=== PATIENT | female | born 1950 | race Caucasian/White ===

== ENCOUNTER → 2017-06-22 12:01 | Outpatient (CLI) | payer MEDICARE, SELFPAY ==
--- NOTE | 2017-06-22 12:03 | RAD_ITS ---
STUDY: X-RAY CHEST REASON FOR EXAM: Female, 67 years old. Cough and congestion TECHNIQUE: Single AP portable view of the chest. COMPARISON: None. FINDINGS: Moderate lung volumes. Elevated right hemidiaphragm, stable. Probable mild chronic interstitial prominence. No infiltrates or effusions. Normal size heart. Normal mediastinum and brennan. Normal visualized pulmonary arteries. Normal visualized aortic arch and descending thoracic aorta. Normal visualized thoracic spine. Normal visualized ribs, clavicles, and shoulders. There is no demonstrated abnormality of the visualized soft tissue structures of the upper abdomen. RAD/Chest PA and Lateral IMPRESSION: Moderate lung volumes. Elevated right hemidiaphragm, stable. Probable mild chronic interstitial prominence. No infiltrates or effusions. Electronically Signed: Pasquale Bauer MD at 12:37 EST , Service support ,
== END ==
PROVIDERS: Family Provider Family Medicine; PCP Family Medicine; Visit Provider Physician Assistant
DX: R05 Cough (principal)
CPT/HCPCS: 71046

== ENCOUNTER → 2017-10-22 10:27 | Outpatient (CLI) | payer MEDICARE, SELFPAY ==
[2017-10-22 12:19] LABS: Color, Urine Yellow (Yellow); Glucose, Dipstick Normal (Normal); Ketone-Dipstick Negative (Negative); Leukocyte Esterase-Dipstick Negative /ul (Negative); Nitrite-Dipstick Negative (Negative); Occult Blood-Urine 10 /ul (Negative); Protein-Dipstick Negative (Negative); Specific Gravity, Urine 1.025 (1.002-1.030); Urine Bilirubin Dipstick Negative (Negative); Urine Clarity Clear (Clear); Urine Urobilinogen Normal (Normal)
[2017-10-22 12:43] LABS: Absolute Lymphocyte Count 1.44 X10^3/ul (0.83-4.51); Absolute Neutrophil Count 4.1 X10^3/uL (2.0-7.7); Basophil# 0.02 X10^3/uL; Basophil% 0.3 % (0-1); Eosinophil# 0.45 X10^3/uL; Eosinophils% 6.9 % (0-5); Hematocrit 40.7 % (37-47); Hemoglobin 13.2 g/dl (12.0-15.0); Lymphocyte # 1.44 X10^3/ul (4.0); Lymphocyte % 22.1 % (19-41); Mean Corp Hgb Conc 32.4 g/gl (32-36); Mean Corpuscular Hgb 28.3 pg (27.0-32.0); Mean Corpuscular Volume 87.2 fL (81-99); Mean Platelet Vol. 10.4 fl (6.2-12.0); Monocyte# 0.42 X10^3/uL; Monocyte% 6.5 % (0-10); Neutrophil # 4.14 X10^3/uL (2.7-7.7); Neutrophil % 63.6 % (47-70); Platelet Count 265 K/mm3 (150-450); RBC Distribution Width CV 14.7 % (11.6-14.6); RBC Distribution Width SD 46.7 fl (35.1-43.9); Red Blood Count 4.67 M/mm3 (4.2-5.4); White Blood Count 6.5 K/mm3 (4.4-11.0)
[2017-10-22 12:48] LABS: POSITIVE COUNT NO; POSITIVE DIFFERENTIAL NO; POSITIVE MORPHOLOGY NO
[2017-10-22 12:58] LABS: ALB/GLOB Ratio 0.9 RATIO (0.9-2.4); AST(SGOT) 20 U/L (15-37); Alanine Aminotransfer ALT/SGPT 24 U/L (13-56); Albumin, Serum 3.5 g/dL (3.2-5.0); Alkaline Phosphatase 107 U/L (45-117); Anion Gap 6 (5-15); BUN 13 mg/dL (7-18); BUN/Creat Ratio 13.9 RATIO (10-20); Calcium,Total 8.5 mg/dL (8.5-10.1); Chloride 107 mmol/L (98-107); Cholesterol 162 mg/dL (200); Creatinine, Serum 0.93 mg/dL (0.55-1.02); EST Glomerular Filtration Rate 63 mL/min (>60); Est Glom Filt Rate - Afr Amer 76 mL/min (>60); Globulin 3.8 g/dL (2.2-4.2); Glucose 96 mg/dL (74-106); High Density Lipoprotein 31 mg/dL; Potassium 4.3 mmol/L (3.5-5.1); Protein, Total 7.3 g/dL (6.4-8.2); Sodium Level 143 mmol/L (136-145); Triglycerides 147 mg/dL; Very Low Density Lipoprotein 29 mg/dL (5-40)
== END ==
PROVIDERS: Family Provider Family Medicine; PCP Family Medicine; Visit Provider Family Medicine
DX: Z00.00 Encounter for general adult medical examination without abnormal findings (principal); Z12.31 Encounter for screening mammogram for malignant neoplasm of breast; I10 Essential (primary) hypertension
CPT/HCPCS: 36415; 80053; 80061; 81002; 85025

== ENCOUNTER → 2018-04-26 15:58 | Outpatient (CLI) | payer MEDICARE, SELFPAY ==
[2018-04-26 15:43] VITALS: BMI 27.9
--- NOTE | 2018-04-26 16:01 | RAD_ITS ---
STUDY: X-RAY CHEST REASON FOR EXAM: Female, 68 years old. Chest pain and cough TECHNIQUE: PA and lateral views of the chest. COMPARISON: 06/22/2017 FINDINGS: There are interstitial fibrotic changes of the lungs. There is no demonstrated pleural abnormality. Normal size heart. Normal mediastinum and brennan. Normal visualized pulmonary arteries. Normal visualized aortic arch and descending thoracic aorta. Normal visualized thoracic spine. Normal visualized ribs, clavicles, and shoulders. There is no demonstrated abnormality of the visualized soft tissue structures of the upper abdomen. RAD/Chest PA and Lateral IMPRESSION: Degenerative changes, as described above. No demonstrated acute cardiopulmonary process. Electronically Signed: Stephan Almaraz MD at 16:14 EST , Service support ,
== END ==
PROVIDERS: Family Provider Family Medicine; PCP Family Medicine; Referring Provider Physician Assistant Surgical; Visit Provider Physician Assistant Surgical
DX: J40 Bronchitis, not specified as acute or chronic (principal)
CPT/HCPCS: 71046

== ENCOUNTER → 2018-07-01 12:26 | Outpatient (CLI) | payer MEDICARE, SELFPAY ==
[2018-05-05 12:11] VITALS: BMI 28.3
[2018-07-01 13:06] LABS: Absolute Lymphocyte Count 1.73 X10^3/ul (0.83-4.51); Basophil# 0.02 X10^3/uL; Basophil% 0.3 % (0-1); Eosinophil# 0.56 X10^3/uL; Eosinophils% 8.2 % (0-5); Hematocrit 41.9 % (37-47); Hemoglobin 13.2 g/dl (12.0-15.0); Lymphocyte # 1.73 X10^3/ul (4.0); Lymphocyte % 25.2 % (19-41); Mean Corp Hgb Conc 31.5 g/gl (32-36); Mean Corpuscular Hgb 27.7 pg (27.0-32.0); Mean Corpuscular Volume 87.8 fL (81-99); Mean Platelet Vol. 9.9 fl (6.2-12.0); Monocyte# 0.52 X10^3/uL; Monocyte% 7.6 % (0-10); Neutrophil % 58.1 % (47-70); Platelet Count 277 K/mm3 (150-450); RBC Distribution Width CV 14.9 % (11.6-14.6); RBC Distribution Width SD 48.2 fl (35.1-43.9); Red Blood Count 4.77 M/mm3 (4.2-5.4); White Blood Count 6.9 K/mm3 (4.4-11.0)
[2018-07-01 13:10] LABS: POSITIVE COUNT NO; POSITIVE DIFFERENTIAL NO; POSITIVE MORPHOLOGY NO
[2018-07-01 13:45] LABS: Vitamin D,25 Hydroxy 20.1 ng/mL (29.95-100.01)
[2018-07-01 13:47] LABS: AST(SGOT) 22 U/L (15-37); Alanine Aminotransfer ALT/SGPT 28 U/L (13-56); Albumin, Serum 3.7 g/dL (3.2-5.0); Alkaline Phosphatase 132 U/L (45-117); Anion Gap 6 (5-15); BUN 10 mg/dL (7-18); BUN/Creat Ratio 10.8 RATIO (10-20); Calcium,Total 8.8 mg/dL (8.5-10.1); Chloride 106 mmol/L (98-107); Cholesterol 170 mg/dL (200); Creatinine, Serum 0.93 mg/dL (0.55-1.02); EST Glomerular Filtration Rate 64 mL/min (>60); Est Glom Filt Rate - Afr Amer 77 mL/min (>60); Globulin 3.7 g/dL (2.2-4.2); Glucose 88 mg/dL (74-106); High Density Lipoprotein 29 mg/dL; Potassium 4.3 mmol/L (3.5-5.1); Protein, Total 7.4 g/dL (6.4-8.2); Sodium Level 140 mmol/L (136-145); Thyroid Stim Hormone (TSH) 2.57 uIU/mL (0.358-3.74); Triglycerides 174 mg/dL; Very Low Density Lipoprotein 35 mg/dL (5-40)
[2018-07-02 08:28] LABS: Hep C Antibodies <0.1 s/co ratio (0.0-0.9)
== END ==
PROVIDERS: Family Provider Family Medicine; PCP Family Medicine; Visit Provider Family Medicine Geriatric Medicine
DX: E55.9 Vitamin D deficiency, unspecified (principal); E78.49 Other hyperlipidemia; I10 Essential (primary) hypertension; R53.83 Other fatigue; Z13.89 Encounter for screening for other disorder
CPT/HCPCS: 36415; 80053; 80061; 82306; 84443; 85025; 86803

== ENCOUNTER → 2018-07-12 12:17 | Outpatient (CLI) | payer MEDICARE, SELFPAY ==
[2018-05-05 12:11] VITALS: BMI 28.3
--- NOTE | 2018-07-12 12:20 | CT_ITS ---
STUDY: CT CHEST WITH CONTRAST REASON FOR EXAM: Female, 68 years old. 4 month history of chronic cough. RADIATION DOSAGE (If Supplied By Facility): CTDIvol = ( 13.21 ) mGy, DLP = ( 489.85 ) mGycm TECHNIQUE: Transaxial imaging was performed following intravenous administration of Isovue 300 100ML IV. Multiplanar coronal and sagittal images were reformatted. Individualized dose optimization techniques were used for this CT. COMPARISON: Comparison is made with prior CT scan of the chest dated October 29, 2016. FINDINGS: Hyperinflation. Once again, there is evidence of increased interstitial markings at the lung bases with areas of bleb formation as well as bronchiectasis in keeping with chronic interstitial scarring. This also evidence of increased interstitial markings in the upper lobes suggestive of scarring. There is no demonstrated pleural abnormality. Normal heart and pericardium. There are multiple small lymph nodes within the mediastinum, which are normal in size and morphology most compatible with reactive lymph hyperplasia. Normal hilar regions. Normal enhanced pulmonary arteries. Normal aorta arch and descending thoracic aorta. There are degenerative changes of the thoracic spine. There is no demonstrated abnormality of the visualized upper abdomen. CT/Chest WITH Contrast IMPRESSION: Stable findings of interstitial scarring in both lungs. Electronically Signed: Farooq Bautista, at 13:36 EDT , Service support ,
== END ==
PROVIDERS: Family Provider Family Medicine Geriatric Medicine; PCP Family Medicine Geriatric Medicine; Referring Provider Family Medicine Geriatric Medicine; Visit Provider Family Medicine Geriatric Medicine
DX: J84.9 Interstitial pulmonary disease, unspecified (principal); A37.90 Whooping cough, unspecified species without pneumonia; M79.10 Myalgia, unspecified site
CPT/HCPCS: 71260; 87070; 87077; 87186; 87449; 87633; Q9967

== ENCOUNTER → 2018-08-18 | Outpatient (CLI) | payer MEDICARE, SELFPAY ==
[2018-05-05 12:11] VITALS: BMI 28.3
[2018-08-18 14:22] LABS: Erythrocyte Sedimentation Rate 11 mm/hr (0-30)
[2018-08-20 12:40] LABS: Angiotensin Convert Enzyme 48 U/L (14-82)
== END | disposition home or self-care (01) ==
PROVIDERS: Family Provider Family Medicine Geriatric Medicine; PCP Family Medicine Geriatric Medicine; Referring Provider Internal Medicine Pulmonary Disease; Visit Provider Internal Medicine Pulmonary Disease
DX: R05 Cough (principal); R06.2 Wheezing
CPT/HCPCS: 36415; 82164; 85652; 86140

== ENCOUNTER → 2018-09-06 12:24 | Outpatient (CLI) | payer MEDICARE, SELFPAY ==
[2018-05-05 12:11] VITALS: BMI 28.3
[2018-09-06 13:26] LABS: Absolute Lymphocyte Count 1.08 X10^3/ul (0.83-4.51); Absolute Neutrophil Count 4.4 X10^3/uL (2.0-7.7); Basophil# 0.02 X10^3/uL; Basophil% 0.3 % (0-1); Eosinophil# 0.42 X10^3/uL; Eosinophils% 6.6 % (0-5); Hemoglobin 12.7 g/dl (12.0-15.0); Lymphocyte # 1.08 X10^3/ul (4.0); Mean Corp Hgb Conc 31.8 g/gl (32-36); Mean Corpuscular Hgb 27.9 pg (27.0-32.0); Mean Corpuscular Volume 87.7 fL (81-99); Mean Platelet Vol. 9.6 fl (6.2-12.0); Monocyte% 6.3 % (0-10); Neutrophil # 4.43 X10^3/uL (2.7-7.7); Neutrophil % 69.5 % (47-70); Platelet Count 283 K/mm3 (150-450); RBC Distribution Width CV 15.3 % (11.6-14.6); RBC Distribution Width SD 48.9 fl (35.1-43.9); Red Blood Count 4.56 M/mm3 (4.2-5.4); White Blood Count 6.4 K/mm3 (4.4-11.0)
[2018-09-06 13:37] LABS: POSITIVE COUNT NO; POSITIVE DIFFERENTIAL NO; POSITIVE MORPHOLOGY NO
[2018-09-06 13:39] LABS: Rheumatoid Factor < 10.0 IU/mL (<15)
[2018-09-07 16:02] LABS: Anti-Jo <0.2 AI (0.0-0.9); Anti-Scleroderma-70 AB <0.2 AI (0.0-0.9); SJOGREN'S Anti-SS-A test < 0.2 AI (0.0-0.9); SJOGREN'S Anti-SS-B test < 0.2 AI (0.0-0.9)
[2018-09-07 16:10] LABS: ANTINUCLEAR ANTIBODIES DIRECT Negative (Negative); Anti-dsDNA Ab <1 IU/mL (0-9)
[2018-09-08 03:06] LABS: Cytoplasmic Ab (C-ANCA) <1:20 titer (Neg:<1:20)
[2018-09-08 12:18] LABS: CCP IgG Antibodies 3 units (0-19); Perinuclear Ab (P-ANCA) <1:20 titer (Neg:<1:20)
== END ==
PROVIDERS: Family Provider Family Medicine Geriatric Medicine; PCP Family Medicine Geriatric Medicine; Referring Provider Internal Medicine Pulmonary Disease; Visit Provider Internal Medicine Pulmonary Disease
DX: J47.9 Bronchiectasis, uncomplicated (principal)
CPT/HCPCS: 36415; 85025; 86038; 86200; 86225; 86235; 86256; 86431

== ENCOUNTER → 2018-10-04 14:45 | Outpatient (CLI) | payer MEDICARE, SELFPAY ==
[2018-05-05 12:11] VITALS: BMI 28.3
[2018-10-04 17:34] LABS: Absolute Lymphocyte Count 1.56 X10^3/ul (0.83-4.51); Absolute Neutrophil Count 4.6 X10^3/uL (2.0-7.7); Basophil# 0.02 X10^3/uL; Basophil% 0.3 % (0-1); Eosinophil# 0.49 X10^3/uL; Eosinophils% 7.1 % (0-5); Hematocrit 41.4 % (37-47); Hemoglobin 12.9 g/dl (12.0-15.0); Lymphocyte # 1.56 X10^3/ul (4.0); Lymphocyte % 22.5 % (19-41); Mean Corp Hgb Conc 31.2 g/gl (32-36); Mean Corpuscular Hgb 27.6 pg (27.0-32.0); Mean Corpuscular Volume 88.5 fL (81-99); Mean Platelet Vol. 10.2 fl (6.2-12.0); Monocyte# 0.24 X10^3/uL; Monocyte% 3.5 % (0-10); Neutrophil % 66.3 % (47-70); Platelet Count 261 K/mm3 (150-450); RBC Distribution Width CV 14.8 % (11.6-14.6); RBC Distribution Width SD 47.8 fl (35.1-43.9); Red Blood Count 4.68 M/mm3 (4.2-5.4); White Blood Count 6.9 K/mm3 (4.4-11.0)
[2018-10-04 17:57] LABS: POSITIVE COUNT NO; POSITIVE DIFFERENTIAL NO; POSITIVE MORPHOLOGY NO
[2018-10-04 18:13] LABS: Vitamin D,25 Hydroxy 18.7 ng/mL (29.95-100.01)
[2018-10-04 18:22] LABS: ALB/GLOB Ratio 0.8 RATIO (0.9-2.4); AST(SGOT) 22 U/L (15-37); Alanine Aminotransfer ALT/SGPT 25 U/L (13-56); Albumin, Serum 3.3 g/dL (3.2-5.0); Alkaline Phosphatase 126 U/L (45-117); Anion Gap 12 (5-15); BUN 11 mg/dL (7-18); BUN/Creat Ratio 10.9 RATIO (10-20); Calcium,Total 8.7 mg/dL (8.5-10.1); Chloride 104 mmol/L (98-107); Cholesterol 172 mg/dL (200); Creatinine, Serum 1.01 mg/dL (0.55-1.02); EST Glomerular Filtration Rate 58 mL/min (>60); Est Glom Filt Rate - Afr Amer 70 mL/min (>60); Globulin 3.9 g/dL (2.2-4.2); Glucose 183 mg/dL (74-106); High Density Lipoprotein 31 mg/dL; Potassium 3.9 mmol/L (3.5-5.1); Protein, Total 7.2 g/dL (6.4-8.2); Sodium Level 141 mmol/L (136-145); Thyroid Stim Hormone (TSH) 2.29 uIU/mL (0.358-3.74); Triglycerides 212 mg/dL; Very Low Density Lipoprotein 42 mg/dL (5-40)
[2018-10-05 10:19] LABS: Hemoglobin A1c 5.5 % (4.2-6.3)
== END ==
PROVIDERS: Family Provider Family Medicine Geriatric Medicine; PCP Family Medicine Geriatric Medicine; Visit Provider Family Medicine Geriatric Medicine
DX: E55.9 Vitamin D deficiency, unspecified (principal); E78.5 Hyperlipidemia, unspecified; I10 Essential (primary) hypertension; E16.2 Hypoglycemia, unspecified
CPT/HCPCS: 36415; 80053; 80061; 82306; 83036; 84443; 85025

== ENCOUNTER 2018-11-28 15:14 | Observation (INO) | payer MEDICARE, SELFPAY ==
[2018-05-05 12:11] VITALS: BMI 28.3
[2018-11-28] VITALS (8 sets, daily range): BP systolic 99–165; BP diastolic 55–91; PULSE 73–115; RESP 16–22; TEMP 36.8–36.9; O2SAT 92–99; BMI 31.7; BMI 31.8; BMI 31.9
--- NOTE | 2018-11-28 15:26 | CT_ITS ---
STUDY: CT BRAIN WITHOUT CONTRAST REASON FOR EXAM: Female, 68 years old. Confusion with episode of memory loss, feels shaky, hypertension RADIATION DOSAGE (If Supplied By Facility): CTDIvol = ( 44.99 ) mGy, DLP = ( 745.49 ) mGycm TECHNIQUE: Transaxial CT imaging of the brain was performed without administration of intravenous contrast material. Individualized dose optimization techniques were used for this CT. COMPARISON: 12/21/2016 FINDINGS: Normal soft tissue structures. Normal calvarium. Normal size ventricles and extra-axial spaces for the patient's age. Normal white matter tracts of the cerebral hemispheres. Normal basal ganglia and thalami. Normal brainstem. Normal cerebellum. There is no intracranial hemorrhage. There are no findings of an acute ischemic infarction. Normal visualized paranasal sinuses. CT/Brain/Head without Contrast IMPRESSION: No acute intracranial hemorrhage or mass effect. Normal for age. Electronically Signed: Ajay Dooley MD ([place]) at 16:30 EDT , Service support ,
--- NOTE | 2018-11-28 15:27 | EKG12_ITS ---
Test Reason : ALT LOC Blood Pressure : / mmHG Vent. Rate : 096 BPM Atrial Rate : 096 BPM P-R Int : 170 ms QRS Dur : 082 ms QT Int : 362 ms P-R-T Axes : 053 -26 025 degrees QTc Int : 457 ms Normal sinus rhythm Low voltage QRS Cannot rule out Anterior infarct , age undetermined Abnormal ECG Confirmed by SAMANTHA HERRING, RAIZA ([id number]), website/blog editor MARY SIDDIQUI ([id number]) on 12/06/2018 1:25:28 PM Referred By: GARY Confirmed By:MURTAZA SINGH MD
[2018-11-28 15:50] LABS: Absolute Lymphocyte Count 1.65 X10^3/uL (0.83-4.51); Basophil# 0.03 X10^3/uL; Basophil% 0.4 % (0-1); Eosinophil# 0.51 X10^3/uL; Eosinophils% 6.6 % (0-5); Hematocrit 41.8 % (37-47); Hemoglobin 13.1 g/dL (12.0-15.0); Lymphocyte # 1.65 X10^3/ul (4.0); Lymphocyte % 21.2 % (19-41); Mean Corp Hgb Conc 31.3 g/dL (32-36); Mean Corpuscular Hgb 27.6 pg (27.0-32.0); Mean Platelet Vol. 9.9 fl (6.2-12.0); Monocyte# 0.52 X10^3/uL; Monocyte% 6.7 % (0-10); NRBC Flagged by Analyzer 0 % (0-5); Neutrophil # 5.03 X10^3/uL (2.7-7.7); Neutrophil % 64.6 % (47-70); Platelet Count 239 K/mm3 (150-450); RBC Distribution Width CV 14.1 % (11.6-14.6); RBC Distribution Width SD 45.3 fl (35.1-43.9); Red Blood Count 4.75 M/mm3 (4.2-5.4); White Blood Count 7.8 K/mm3 (4.4-11.0)
[2018-11-28 15:51] LABS: Bedside Glucose 112 mg/dL (70-110)
[2018-11-28 15:59] LABS: Bacteria 0 SEEN /hpf (None Seen); Mucous, Urine 0 SEEN /hpf (<or=2+); White Blood Cells 0 SEEN /hpf (0-5)
[2018-11-28 16:00] LABS: Color, Urine Yellow (Yellow); Glucose, Dipstick Normal (Normal); Ketone-Dipstick Negative (Negative); Leukocyte Esterase-Dipstick Negative /ul (Negative); Nitrite-Dipstick Negative (Negative); Occult Blood-Urine Negative /ul (Negative); Protein-Dipstick Negative (Negative); Urine Bilirubin Dipstick Negative (Negative); Urine Clarity Clear (Clear); Urine Urobilinogen Normal (Normal)
[2018-11-28 16:09] LABS: Red Blood Cells-Urine 0-5 SEEN /hpf (0-5); Squamous Epithelial Cells - UA 0-5 SEEN /hpf (5-10)
[2018-11-28 16:09] LABS: Anion Gap 3 (5-15); BUN 10 mg/dL (7-18); BUN/Creat Ratio 10.2 RATIO (10-20); Calcium,Total 8.7 mg/dL (8.5-10.1); Chloride 105 mmol/L (98-107); Creatinine, Serum 0.98 mg/dL (0.55-1.02); EST Glomerular Filtration Rate 59 mL/min (>60); Est Glom Filt Rate - Afr Amer 72 mL/min (>60); Estimated Creatinine Clearance 42.25 ml/min; Glucose 108 mg/dL (74-106); Potassium 3.5 mmol/L (3.5-5.1); Sodium Level 139 mmol/L (136-145)
--- NOTE | 2018-11-28 16:38 | ED.VISSUMM ---
- ER Visit Summary Date of Service: 11/28/18 Chief Complaint: [Confusion] History of Present Illness: The patient is a 68 F [presents to the emergency with an episode of confusion this afternoon. Patient states that approximately 2:30 PM she had gone to lunch with her . Patient was sitting down when she started having shaking in her hands. Patient also was at that time was asked by the primary special educator which she wanted to drink and patient did not know how to respond. states that she was confused and could not think of who the president was. On arrival to the ER she still complaining of feeling somewhat shaky in her hands and generally not feeling well. She denies any chest pain. She denies headache.] Physical Examination: [HEENT-PERRLA, EOMI. Cranial nerves II through XII grossly intact. TMs clear. Mucous membranes moist. No adenopathy. Cardiovascular-regular rate and rhythm without murmur or ectopy Lungs-clear to auscultation, chest wall stable without crepitus or subcu emphysema Abdomen-normoactive bowel sounds, soft, nontender, no rebound or rigidity, no peritoneal signs. Neuro weie-dfpake-cadt and heel bronson testing within normal limits, negative Romberg, negative pronator, fundi benign. NIH stroke scale was 0. Patient did have a fine tremor with both hands when holding them up. Extremities-intact ?4, normal range of motion, normal pulses, atraumatic] Test Results: [CT scan of the brain without contrast was unremarkable. CBC with differential is normal. Chemistry is unremarkable. Glucose was 108. Troponin is less than 0.15. Urinalysis was normal. EKG showed a sinus rhythm with a ventricular rate of 96 bpm with some nonspecific ST changes.] Emergency Department Course and Treatment: [Sam case with hospitalist who asked that we obtain CTAs of the head and neck which were ordered.] Treatment Plan: [Bit for further work-up and evaluation of suspected TIA.] Disposition: [Admit] Impression: [TIA-symptoms resolved] This note was generated with [employer] dictation software. It may contain incorrect words, spelling, and punctuation that were not noted in review of the chart prior to signing ED Disposition - Plan for ED Patient: Referrals: Ernesto Hensley Chi, MD [Primary Care Provider] -
--- NOTE | 2018-11-28 16:42 | CT_ITS ---
STUDY: CTA HEAD AND NECK WITH CONTRAST REASON FOR EXAM: Female, 68 years old. TIA and memory loss RADIATION DOSAGE (If Supplied By Facility): CTDIvol = ( 20.49 ) mGy, DLP = ( 677.71 ) mGycm TECHNIQUE: CT angiography was performed with a multi-detector CT scanner. Data acquisition was obtained from the skull base through the vertex following intravenous administration of 100 IV Isovue 370. MIP images were reconstructed from the axial data set. Post-processing of the angiographic images was performed, with multiplanar reformation and 3D reconstruction. Individualized dose optimization techniques were used for this CT. COMPARISON: MRA 12/22/2016, head CT 11/28/2018 FINDINGS: Intracranial ICA calcifications. Otherwise: Normal bilateral petrous carotid arteries. Normal right cavernous carotid artery with a normal supraclinoid bifurcation. Normal left cavernous carotid artery with a normal supraclinoid bifurcation. Normal right A1 segments of the anterior cerebral artery. Normal left A1 segments of the anterior cerebral artery. Normal intact anterior communicating artery (ACOM). Normal bilateral A2 segments of the anterior cerebral arteries. Normal right M1 and M2 segments of the middle cerebral arteries, with a normal M1 bifurcation. Normal left M1 and M2 segments of the middle cerebral arteries, with a normal M1 bifurcation. Normal right posterior communicating artery (PCOM). Normal left posterior communicating artery (PCOM). Normal bilateral vertebral arteries. Normal basilar artery with a normal basilar bifurcation. The visualized bilateral superior cerebellar (SCA) arteries are normal. Normal bilateral P1, P2 and visualized P3 segments of the posterior cerebral arteries. There is no demonstrated aneurysm of the [place] of [place]. There is no demonstrated abnormality of the visualized brain. Hyperostosis frontalis interna. AORTIC ARCH: Normal visualized aortic arch. Normal origins of the brachiocephalic, left common carotid, and left subclavian arteries. RIGHT CAROTID ARTERIES: Normal right common carotid artery (CCA). Mild eccentric calcified bulb plaque without underlying stenosis. Normal origin of the right internal carotid (ICA) artery without a hemodynamically significant stenosis. Normal visualized cervical portion of the right internal carotid artery. Normal origin of the right external carotid artery (ECA). LEFT CAROTID ARTERIES: Normal left common carotid artery (CCA). Normal left common carotid bulb. Normal origin of the left internal carotid (ICA) artery without a hemodynamically significant stenosis. Normal visualized cervical portion of the left internal carotid artery. Normal origin of the left external carotid artery (ECA). VERTEBRAL ARTERIES: Normal bilateral vertebral arteries. Ill-defined left thyroid nodule. Consider ultrasound follow-up. CT/CTA Head AND Neck W/ Contrast IMPRESSION: No CTA evidence of significant intracranial arterial pathology. No CTA evidence of significant arterial pathology in the neck. Ill-defined left thyroid nodule. Consider ultrasound follow-up. NASCET criteria was used. Electronically Signed: Boyd Boyle MD at 17:58 EDT Tel , Service support ,
[2018-11-28] MEDS: 0.9% Normal Saline 1,000 ML 150 ML IV ×2 (16:53→21:08)
--- NOTE | 2018-11-28 17:52 | HP.PCM_ITS ---
Problem List (1) TIA (transient ischemic attack) Status: Acute (2) Otitis media Status: Resolved Qualifiers: (3) Impacted cerumen of both ears Status: Inactive (4) Otitis externa Status: Inactive Qualifiers: (5) Impacted cerumen of left ear Status: Inactive (6) Staph skin infection Status: Resolved (7) Bronchitis Status: Inactive (8) History of tobacco use Status: Chronic Comment: smoked for 30 years and quit about 1998 at 48 YOA (9) Hypertension Status: Chronic Qualifiers: (10) Hypertensive urgency Status: Acute (11) Left facial numbness Status: Resolved (12) Hypertensive urgency Status: Resolved (13) Migraine Status: Chronic Qualifiers: (14) Obesity (BMI 30.0-34.9) Status: Chronic (15) Anxiety and depression Status: Chronic (16) Interstitial lung disease Status: Chronic (17) Dyslipidemia Status: Chronic (18) Family history of colon cancer in father Status: Chronic History of Present Illness Date of Admission: 11/28/18 Chief Complaint: arms shaking, confusion and inability to get her speech out for 10-15 sec. The patient is a 68 year old F with a past medical history of hypertension, former smoking history, anxiety/depression and interstitial lung disease who presented to the emergency department at [facility] on 11/28/2018 complaining of a transient episode of not being able to speak associated with shaking of both arms and confusion. She was unable to name the president. She denied any history of TIA or CVA in the past. Her NIH at presentation to the emergency department was 0. Vital signs at presentation to the emergency department were temperature 98.4, pulse rate 115, blood pressure 165/87, respir atory rate 18 and the pulse ox has ranged from 93 to 99% on room air. A noncontrasted CT brain revealed no acute findings. CBC was unremarkable with the exception of mild increase in eosinophils to 6.6%. The BMP was unremarkable. A recent hemoglobin A1c was 5.5. Troponin today is less than 0.015. The EKG showed normal sinus rhythm with left anterior hemiblock but no suspicious ST or T wave changes. UA was negative for infection. A stress test done in 2017 was negative for ischemia and showed a ejection fraction of 71%. She had a recent CT scan of her chest that showed interstitial scarring. A CTA of the head and neck was done in the ED but, the radiologist's report is still pending. She denies headache, chest pain, shortness of breath at rest, nausea, unilateral weakness or numbness. She denies any history of seizures. She is being admitted to a monitored bed on PCU for observation for TIA. Past Medical History Past Medical History (Chronic Problems): Chronic Problems (Last Reviewed 11/28/18 @ 18:02 by Sonia Beasley DO) Interstitial lung disease (Chronic) Dyslipidemia (Chronic) Family history of colon cancer in father (Chronic) History of tobacco use (Chronic) smoked for 30 years and quit about 1998 at 48 YOA Hypertension (Chronic) Migraine (Chronic) Obesity (BMI 30.0-34.9) (Chronic) Anxiety and depression (Chronic) Medical History: Medical History (Last Reviewed 11/28/18 @ 18:02 by Sonia Beasley DO) Fatigue R53.83 HTN (hypertension) I10 Allergies No Known Allergies Allergy (Verified 05/05/18 12:12) Home Medications: Ambulatory Orders Medication Instructions Recorded Aspirin E.C. [Ecotrin] 81 mg PO QHS 10/02/16 Amlodipine [Norvasc] 5 mg PO DAILY 01/17/17 escitalopram 10 mg tablet 10 mg PO DAILY 30 Days #30 06/22/17 pramipexole 0.125 mg tablet 0.125 mg PO QHS 05/05/18 Surgical History: hysterectomy - for a benign tumor, - - Hysterectomy, recent right foot surgery for cyst removal per podiatry. Psychiatric History: Anxiety, Depression BORDER PATROL AGENT History: No pertinent BORDER PATROL AGENT history Lives: Spouse/ Significant Other Smoking Status: Former smoker - she quit at 48 YOA and prior to that smoked for 30 years. Tobacco Use: Non-smoker Alcohol: None Drugs: None - *Family History Maternal History Items: - - Mother young from suicide, depression. Paternal History Items: Cancer - colon, Heart Disease Review of Systems Constitutional: Denies: Chills, Fever, Weight Change HEENT: Reports: Head Aches - chronic migraines.....none recently. Denies: Sinus Congestion, Sinus Drainage Cardiovascular: Reports: Palpitations - usually when she is lying down. Denies: Chest Pain, Light Headedness, Orthopnea, Paroxysmal Noc. Dyspnea, Syncope Respiratory: Reports: Cough - mostly non-productive, occasional clear sputum, Shortness of breath upon exertion. Denies: Hemoptysis, Pleuritic Pain, Shortness of breath at rest, Sputum production Gastrointestinal: Denies: Abdominal Pain, Nausea, Vomiting Genitourinary: Denies: Dysuria, Frequency Musculoskeletal: Denies: Joint Pain, Joint Tenderness Skin: Denies: Rash, Wounds Neurological: Reports: Change in Speech - unable to speak for about 10-15 seconds prior to arriving at the ED. Denies: Focal weakness, Numbness, Tingling, Tremor, Seizures Psychiatric: Denies: Anxiety, Depression, Homicidal Ideations, Suicidal Ideations Endocrine: Denies: Hx of Thyroiditis Hematologic/ Lymphatic: Denies: Easy Bruising, Easy Bleeding, Hx of blood clot VTE Information - Inpt Only VTE Present on Admission: No VTE Mechan Device Prophylaxis: Knee High PRISCILLA Hose VTE Pharm Prophylaxis ordered?: Yes Patient Problems: Active and Suspected Problems (Last Reviewed 11/28/18 @ 18:02 by Sonia Beasley DO) TIA (transient ischemic attack) (Acute) - Physical Exam General: Alert, Oriented x3, Cooperative, No apparent distress, Well developed, Well nourished HEENT: Atraumatic, PERRLA, EOMI, Normocephalic Oral: No Gingival or Mucosal Lesions/ Ulcerations, Dry Mucosa Neck: Supple, No JVD, Negative Carotid Bruits, Trachea Midline Lungs: Normal air movement, Rales - coarse crackles in both lungs Cardiovascular: Regular rate, Regular Rhythm, Normal S1, Normal S2, No murmurs, No Ectopic Activity, No rub noted, No Gallop Abdomen: Bowel Sounds Present, Soft, Non Tender, Non-Distended, Obese Extremities: No clubbing, No cyanosis, No edema, Capillary Refill Less than 3 Seconds, No Calf Tenderness, Peripheral Pulses Normal Skin: No rashes, No breakdown, - - she has many senile keratoses and actinic ketatoses Musculoskeletal: No Tenderness to Palpation of Joints or Extremities, No Muscle Wasting Neurological: Cranial nerves II-XII grossly intact, Neuro grossly intact, - - No focal neurologic deficits, NIH is 0 Psych/Mental Status: Normal Affect, Appropriate Vital Signs Temp Pulse Resp BP Pulse Ox 98.4 F 83 17 154/82 H 94 11/28/18 15:15 11/28/18 17:37 11/28/18 17:37 11/28/18 17:37 11/28/18 17:37 Oxygen Delivery Method Room Air Weight: 173 lb 11.588 oz Body Mass Index (BMI) 31.7 Finger Stick Blood Glucose 112 Laboratory Tests Past 24 Hrs 11/28/18 11/28/18 11/28/18 15:36 15:36 15:54 WBC 7.8 RBC 4.75 Hgb 13.1 Hct 41.8 MCV 88.0 MCH 27.6 MCHC 31.3 L RDW Std Deviation 45.3 H RDW Coeff of [place] 14.1 Plt Count 239 MPV 9.9 Immature Gran % (Auto) 0.500 Neut % (Auto) 64.6 Lymph % (Auto) 21.2 Alfalfa % (Auto) 6.7 Eos % (Auto) 6.6 H Baso % (Auto) 0.4 Absolute Neuts (auto) 5.0 Absolute Lymphs (auto) 1.65 Nucleated RBC % 0 Sodium 139 Potassium 3.5 Chloride 105 Carbon Dioxide 31.0 Anion Gap 3 L BUN 10 Creatinine 0.98 Estim Creat Clear Calc 42.25 Est GFR (MDRD) Af Amer 72 Est GFR (MDRD) Non-Af 59 L BUN/Creatinine Ratio 10.2 Glucose 108 H Calcium 8.7 Troponin I < 0.015 Urine Color Yellow Urine Clarity Clear Urine pH 7.0 Ur Specific [place] 1.010 Urine Protein Negative Urine Glucose (UA) Normal Urine Ketones Negative Urine Occult Blood Negative Urine Nitrite Negative Urine Bilirubin Negative Urine Urobilinogen Normal Ur Leukocyte Esterase Negative Urine RBC 0-5 SEEN Urine WBC 0 SEEN Ur Squamous Epith Cells 0-5 SEEN Urine Bacteria 0 SEEN Urine Mucus 0 SEEN POC Glucose 11/28/18 15:44 POC Glucose 112 H Assessment/Plan All Active Problems (Last Reviewed 11/28/18 @ 18:02 by Sonia Beasley DO) TIA (transient ischemic attack) (Acute) Hypertensive urgency (Acute) Hypertensive urgency (Resolved) Left facial numbness (Resolved) Otitis media (Resolved) Staph skin infection (Resolved) Impressions 1. Suspected TIA 2. HTN 3. former smoking hx 4. hx of migraines 5. anxiety/depression hx 6. interstitial lung disease - sees Dr. Aggarwal 7. Low HDL 8. + FH of colon CA in her father - she has never had a colonoscopy Admit to a monitored bed on PCU Initiate Stroke protocol Await the results of the CTA of the Head and the neck. If these are unremarkable then I will not order an MRI......she has an NIH of zero and the sx resolved within 10-15 secs. Neurology consult Antiplatelet therapy with ASA ST, PT consults Bedside swallow eval Hydrate Lipid profile in the AM EKG - NSR with LAHB Start a Statin.....recent LDL is 99 and the HDL was low at 31. ECHO Code Visit OBSV E&M: 73724 Initial observation care L3
[2018-11-28 19:15] LABS: AST(SGOT) 17 U/L (15-37); Alanine Aminotransfer ALT/SGPT 20 U/L (13-56); Albumin, Serum 3.7 g/dL (3.2-5.0); Alkaline Phosphatase 126 U/L (45-117); Bilirubin, Direct 0.09 mg/dL (0.00-0.30); Globulin 3.5 g/dL (2.2-4.2); Magnesium 1.7 mg/dL (1.6-2.6); Protein, Total 7.2 g/dL (6.4-8.2)
[2018-11-28] MEDS: Aspirin E.C. 81 MG Tablet PO (22:22)
[2018-11-28] MEDS: Atorvastatin Calcium 40 MG Tablet PO (22:22)
[2018-11-28] MEDS: Pramipexole Di-HCl 0.125 MG Tablet PO (22:22)
[2018-11-28] MEDS: DOXEPIN HCL 50 MG CAPSULE PO (22:22)
[2018-11-28] MEDS: Acetaminophen 325 MG Tablet 650 MG PO (22:22)
[2018-11-28] MEDS: Escitalopram Oxalate 10 MG Tablet PO (22:22)
[2018-11-29] VITALS (11 sets, daily range): BP systolic 132–151; BP diastolic 64–92; PULSE 58–87; RESP 16–20; TEMP 36.4–36.9; O2SAT 92–97
[2018-11-29] MEDS: 0.9% Normal Saline 1,000 ML 150 ML IV (04:43)
--- NOTE | 2018-11-29 05:55 | ECHOCS_ITS ---
Reason For Study: TIA/CVA Procedure This was a 2D Doppler, Color Flow transthoracic echocardiogram. Contrast injection was performed. Exam performed portable in patient room. Left Ventricle Normal size and thickness. The estimated ejection fraction is 65 %. Normal diastology for age. No regional wall motion abnormalities noted. Right Ventricle Normal RV size. Normal systolic function. Atria Normal left atrium. Normal right atrium. Bubble contrast study negative for right to left interatrial shunt. Mitral Valve Mild mitral valve prolapse, posterior leaflet. There is no mitral valve stenosis. Trivial mitral valve insufficiency. Tricuspid Valve There is no tricuspid stenosis. Mild tricuspid valve insufficiency. Pulmonary artery systolic pressure is 35 mmHg. Aortic Valve Trisinus/trileaflet aortic valve. There is no aortic stenosis. No aortic valve insufficiency. Pulmonic Valve There is no pulmonic valvular stenosis. Trivial pulmonic valve insufficiency. Great Vessels Normal aortic root. Pericardium/Pleural Trivial pericardial effusion. Medication Performed a rapid injection of agitated mix of 9 cc saline and 1cc air to assess for atrial septal defect. Diluted definity 4ml given slow IV push to enhance endocardial definition. MMode/2D Measurements & Calculations LVIDd: 4.8 cm IVSd: 1.0 cm Ao root diam: 2.9 cm LVIDs: 3.4 cm LVPWd: 0.97 cm RVDd: 2.5 cm FS: 29.5 % LAV(MOD-bp): 39.4 ml LVAd ap4: 31.6 cm2 SV(MOD-sp4): 77.7 ml LAV(MOD-bp) Indexed: 22.2 ml/m2 EDV(MOD-sp4): 114.3 ml LAV(MOD-sp2): 41.2 ml EDV(sp4-el): 117.8 ml LAV(MOD-sp4): 36.5 ml LVAs ap4: 16.2 cm2 ESV(MOD-sp4): 36.6 ml ESV(sp4-el): 38.2 ml EF(MOD-sp4): 68.0 % EF(sp4-el): 67.6 % SV(sp4-el): 79.6 ml LA A4 area: 14.9 cm2 LA dimension(2D): 4.0 cm RA A4 area: 11.1 cm2 Doppler Measurements & Calculations MV E max dexter: 60.4 cm/sec Lat Peak E' Dexter: 6.7 cm/sec Med Peak E' Dexter: 4.7 cm/sec MV A max dexter: 88.8 cm/sec E/E' lat: 9.0 E/E' med: 12.8 MV E/A: 0.68 Ao V2 max: 165.1 cm/sec LV V1 max: 89.7 cm/sec PA V2 max: 84.6 cm/sec Ao max P.9 mmHg LV V1 max P.2 mmHg Ao V2 mean: 105.4 cm/sec Ao mean P.9 mmHg Ao V2 VTI: 35.9 cm TR max dexter: 279.4 cm/sec TR max P.2 mmHg Interpretation Summary Performed a rapid injection of agitated mix of 9 cc saline and 1cc air to assess for atrial septal defect. Diluted definity 4ml given slow IV push to enhance endocardial definition. The estimated ejection fraction is 65 %. Normal diastology for age. Bubble contrast study negative for right to left interatrial shunt. Trivial mitral valve insufficiency. Mild mitral valve prolapse, posterior leaflet Mild tricuspid valve insufficiency. Pulmonary artery systolic pressure is 35 mmHg. No definite left ventricular thrombus seen The study was technically limited. Contrast injection was performed. Ordering Physician: Valencia Beasley Referring Physician: Ernesto Hensley Chi Performed By: Hannah Miranda, KAM, RVT
[2018-11-29 06:09] LABS: Hematocrit 35.5 % (37-47); Hemoglobin 11.3 g/dL (12.0-15.0); Mean Corp Hgb Conc 31.8 g/dL (32-36); Mean Corpuscular Hgb 27.9 pg (27.0-32.0); Mean Corpuscular Volume 87.7 fL (81-99); Platelet Count 200 K/mm3 (150-450); RBC Distribution Width CV 14.3 % (11.6-14.6); RBC Distribution Width SD 46.2 fl (35.1-43.9); Red Blood Count 4.05 M/mm3 (4.2-5.4); White Blood Count 4.9 K/mm3 (4.4-11.0)
[2018-11-29 06:37] LABS: Anion Gap 5 (5-15); BUN 9 mg/dL (7-18); BUN/Creat Ratio 10.9 RATIO (10-20); Calcium,Total 8.2 mg/dL (8.5-10.1); Chloride 112 mmol/L (98-107); Cholesterol 148 mg/dL (200); Creatinine, Serum 0.83 mg/dL (0.55-1.02); EST Glomerular Filtration Rate 73 mL/min (>60); Est Glom Filt Rate - Afr Amer 88 mL/min (>60); Estimated Creatinine Clearance 47.59 ml/min; Glucose 95 mg/dL (74-106); High Density Lipoprotein 29 mg/dL; Magnesium 1.8 mg/dL (1.6-2.6); Potassium 4.2 mmol/L (3.5-5.1); Sodium Level 145 mmol/L (136-145); Triglycerides 133 mg/dL; Very Low Density Lipoprotein 27 mg/dL (5-40)
[2018-11-29 06:41] LABS: Phosphorus 2.6 mg/dL (2.5-4.9)
[2018-11-29] MEDS: amLODIPine 5 MG Tablet PO (08:14)
[2018-11-29] MEDS: Enoxaparin 40 MG/0.4 ML Syringe SC (08:14)
--- NOTE | 2018-11-29 13:12 | CT_ITS ---
STUDY: CT BRAIN WITHOUT CONTRAST REASON FOR EXAM: Female, 68 years old. Possible stroke RADIATION DOSAGE (If Supplied By Facility): CTDIvol = ( 44.99 ) mGy, DLP = ( 745.49 ) mGycm TECHNIQUE: Transaxial CT imaging of the brain was performed without administration of intravenous contrast material. Individualized dose optimization techniques were used for this CT. COMPARISON: 11/28/2018 FINDINGS: Normal soft tissue structures. Normal calvarium. Normal size ventricles and extra-axial spaces for the patient's age. Normal white matter tracts of the cerebral hemispheres. Normal basal ganglia and thalami. Normal brainstem. Normal cerebellum. There is no intracranial hemorrhage. There are no findings of an acute ischemic infarction. Normal visualized paranasal sinuses. CT/Brain/Head without Contrast IMPRESSION: No acute intracranial pathology. No significant change from yesterday. Electronically Signed: Ezequiel Tipton DO at 17:41 EDT Tel , Service support ,
--- NOTE | 2018-11-29 13:24 | CON.PCM_ITS ---
Problem List (1) Confusion Status: Acute Reason for Consult Date of Consultation: 11/29/18 Reason for Consultation: Confusion episode History of Present Illness: The patient is a 68 year old F with PMH HTN, HLD, migraine, anxiety obesity admitted with confusional episode. History is obtained from the patient, her and medical records. Per liver in the restaurant yesterday 11/28/2018 when she suddenly had episode of confusion, was slow in getting her words out but there was no aphasia or dysarthria, also had shaking of the upper extremities, patient was aware of the event, there was no tongue bite, urinary incontinence or witnessed seizure event. On admission patient SBP was greater than 160 mmHg. Per patient the episode lasted for few minutes before resolving completely. At present denies any headache, Dizziness, focal motor weakness, sensory loss, speech disturbances or visual disturbances. She lives with her , denies any falls, does not use any cane or walker to ambulate and does drive. CT head done on admission did not show any acute stroke, CTA head/neck did not show any hemodynamically significant stenosis or occlusion. Patient does not want to get MRI brain as she is very claustrophobic. [] Past Medical History Past Medical History (Chronic Problems): Chronic Problems (Last Reviewed 11/28/18 @ 18:02 by Sonia Beasley DO) Interstitial lung disease (Chronic) Dyslipidemia (Chronic) Family history of colon cancer in father (Chronic) History of tobacco use (Chronic) smoked for 30 years and quit about 1998 at 48 YOA Hypertension (Chronic) Migraine (Chronic) Obesity (BMI 30.0-34.9) (Chronic) Anxiety and depression (Chronic) Medical History: Medical History (Last Reviewed 11/28/18 @ 18:02 by Sonia Beasley DO) Fatigue R53.83 HTN (hypertension) I10 Allergies No Known Allergies Allergy (Verified 05/05/18 12:12) Home Medications: Ambulatory Orders Medication Instructions Recorded Aspirin E.C. [Ecotrin] 81 mg PO QHS 10/02/16 Amlodipine [Norvasc] 5 mg PO DAILY 01/17/17 escitalopram 10 mg tablet 10 mg PO QHS 30 Days #30 06/22/17 pramipexole 0.125 mg tablet 0.125 mg PO QHS 05/05/18 Doxepin HCl 50 mg PO QHS 11/28/18 Surgical History: hysterectomy - for a benign tumor, - - Hysterectomy, recent right foot surgery for cyst removal per podiatry. 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 Paternal History Items: Cancer - colon, Heart Disease Review of Systems Constitutional: Reports: - - Complete ROS negative except as documented in HPI Patient Problems: Active and Suspected Problems (Last Reviewed 11/28/18 @ 18:02 by Sonia Beasley DO) TIA (transient ischemic attack) (Acute) Confusion (Acute) - Physical Exam General: Alert HEENT: Normocephalic Neck: Supple Lungs: Normal air movement Cardiovascular: Normal S1, Normal S2 Abdomen: Bowel Sounds Present Extremities: No cyanosis Neurological: - - Conscious, alert, CN II through XII grossly intact, power 5 out of 5 both upper and lower extremities, no sensory loss, no cerebellar signs, gait deferred, reflexes + B/L B/S/T/K/A Psych/Mental Status: Normal Affect Vital Signs Temp Pulse Resp BP Pulse Ox 97.8 F 59 L 16 134/64 H 93 11/29/18 09:21 11/29/18 09:21 11/29/18 09:21 11/29/18 09:21 11/29/18 09:21 Oxygen Delivery Method Room Air Weight: 78.6 kg Body Mass Index (BMI) 31.8 Finger Stick Blood Glucose 112 Intake and Output for Last 24 Hours 11/27/18 11/28/18 11/29/18 23:59 23:59 23:59 Intake Total 1406 / 1406 986 / 986 Balance 1406 / 1406 986 / 986 Laboratory Tests Past 24 Hrs 11/28/18 11/28/18 11/28/18 15:36 15:36 15:36 WBC 7.8 RBC 4.75 Hgb 13.1 Hct 41.8 MCV 88.0 MCH 27.6 MCHC 31.3 L RDW Std Deviation 45.3 H RDW Coeff of Josesito 14.1 Plt Count 239 MPV 9.9 Immature Gran % (Auto) 0.500 Neut % (Auto) 64.6 Lymph % (Auto) 21.2 Antelope % (Auto) 6.7 Eos % (Auto) 6.6 H Baso % (Auto) 0.4 Absolute Neuts (auto) 5.0 Absolute Lymphs (auto) 1.65 Nucleated RBC % 0 Sodium 139 Potassium 3.5 Chloride 105 Carbon Dioxide 31.0 Anion Gap 3 L BUN 10 Creatinine 0.98 Estim Creat Clear Calc 42.25 Est GFR (MDRD) Af Amer 72 Est GFR (MDRD) Non-Af 59 L BUN/Creatinine Ratio 10.2 Glucose 108 H Calcium 8.7 Phosphorus Magnesium 1.7 Total Bilirubin 0.40 Direct Bilirubin 0.09 AST 17 ALT 20 Alkaline Phosphatase 126 H Troponin I < 0.015 Total Protein 7.2 Albumin 3.7 Globulin 3.5 Triglycerides Cholesterol LDL Cholesterol VLDL Cholesterol HDL Cholesterol Urine Color Urine Clarity Urine pH Ur Specific Bryant Urine Protein Urine Glucose (UA) Urine Ketones Urine Occult Blood Urine Nitrite Urine Bilirubin Urine Urobilinogen Ur Leukocyte Esterase Urine RBC Urine WBC Ur Squamous Epith Cells Urine Bacteria Urine Mucus 11/28/18 11/29/18 11/29/18 15:54 05:35 05:35 WBC 4.9 RBC 4.05 L Hgb 11.3 L Hct 35.5 L MCV 87.7 MCH 27.9 MCHC 31.8 L RDW Std Deviation 46.2 H RDW Coeff of Josesito 14.3 Plt Count 200 MPV 10.0 Immature Gran % (Auto) Neut % (Auto) Lymph % (Auto) Antelope % (Auto) Eos % (Auto) Baso % (Auto) Absolute Neuts (auto) Absolute Lymphs (auto) Nucleated RBC % Sodium 145 Potassium 4.2 Chloride 112 H Carbon Dioxide 28.0 Anion Gap 5 BUN 9 Creatinine 0.83 Estim Creat Clear Calc 47.59 Est GFR (MDRD) Af Amer 88 Est GFR (MDRD) Non-Af 73 BUN/Creatinine Ratio 10.9 Glucose 95 Calcium 8.2 L Phosphorus Magnesium 1.8 Total Bilirubin Direct Bilirubin AST ALT Alkaline Phosphatase Troponin I Total Protein Albumin Globulin Triglycerides 133 Cholesterol 148 LDL Cholesterol 92 VLDL Cholesterol 27 HDL Cholesterol 29 L Urine Color Yellow Urine Clarity Clear Urine pH 7.0 Ur Specific Bryant 1.010 Urine Protein Negative Urine Glucose (UA) Normal Urine Ketones Negative Urine Occult Blood Negative Urine Nitrite Negative Urine Bilirubin Negative Urine Urobilinogen Normal Ur Leukocyte Esterase Negative Urine RBC 0-5 SEEN Urine WBC 0 SEEN Ur Squamous Epith Cells 0-5 SEEN Urine Bacteria 0 SEEN Urine Mucus 0 SEEN 11/29/18 05:35 WBC RBC Hgb Hct MCV MCH MCHC RDW Std Deviation RDW Coeff of Josesito Plt Count MPV Immature Gran % (Auto) Neut % (Auto) Lymph % (Auto) Antelope % (Auto) Eos % (Auto) Baso % (Auto) Absolute Neuts (auto) Absolute Lymphs (auto) Nucleated RBC % Sodium Potassium Chloride Carbon Dioxide Anion Gap BUN Creatinine Estim Creat Clear Calc Est GFR (MDRD) Af Amer Est GFR (MDRD) Non-Af BUN/Creatinine Ratio Glucose Calcium Phosphorus 2.6 Magnesium Total Bilirubin Direct Bilirubin AST ALT Alkaline Phosphatase Troponin I Total Protein Albumin Globulin Triglycerides Cholesterol LDL Cholesterol VLDL Cholesterol HDL Cholesterol Urine Color Urine Clarity Urine pH Ur Specific Bryant Urine Protein Urine Glucose (UA) Urine Ketones Urine Occult Blood Urine Nitrite Urine Bilirubin Urine Urobilinogen Ur Leukocyte Esterase Urine RBC Urine WBC Ur Squamous Epith Cells Urine Bacteria Urine Mucus POC Glucose 11/28/18 15:44 POC Glucose 112 H Assessment/Plan All Active Problems (Last Reviewed 11/28/18 @ 18:02 by Sonia Beasley DO) TIA (transient ischemic attack) (Acute) Confusion (Acute) Hypertensive urgency (Acute) Hypertensive urgency (Resolved) Left facial numbness (Resolved) Otitis media (Resolved) Staph skin infection (Resolved) The patient is a 68 year old F with PMH HTN, HLD, migraine, anxiety obesity admi tted with confusional episode. History is obtained from the patient, her and medical records. Per liver in the restaurant yesterday 11/28/2018 when she suddenly had episode of confusion, was slow in getting her words out but there was no aphasia or dysarthria, also had shaking of the upper extremities, patient was aware of the event, there was no tongue bite, urinary incontinence or witnessed seizure event. On admission patient SBP was greater than 160 mmHg. Per patient the episode lasted for few minutes before resolving completely. At present denies any headache, Dizziness, focal motor weakness, sensory loss, speech disturbances or visual disturbances. She lives with her , denies any falls, does not use any cane or walker to ambulate and does drive. CT head done on admission did not show any acute stroke, CTA head/neck did not show any hemodynamically significant stenosis or occlusion. Patient does not want to get MRI brain as she is very claustrophobic. Impression Possible TIA versus TGA Plan ?Patient does not want to get an MRI brain as she is very claustrophobic. ?Repeat CT head ?EEG ?CTA head/neck did not show any hemodynamically segment stenosis or occlusion ?On aspirin and Lipitor. ABCD 2 score is about 2. Will hold off on dual antiplatelets at present. Bleeding risks discussed. ?TTE?EF 65%, normal left atrial size, PFO negative. ?LDL 92, HbA1c?pending ?Stroke risk factors discussed and stroke education provided ?Goal blood pressure less than 130/80 mmHg and goal HbA1c less than 7% ?PT/OT ?GI/DVT prophylaxis ?Fall precautions ?Further medical management per hospitalist team ?Follow-up with neurology as outpatient in 4 weeks ?Please call with questions if any ?Thank you for allowing us to participate in patient's care and management This note has been generated using [employer] dictation software. It may contain incorrect words, spellings and punctuation's which were not noted in the review of the note prior to signing.
[2018-11-29 14:18] LABS: Hemoglobin A1c 5.5 % (4.2-6.3)
--- NOTE | 2018-11-29 15:37 | EEG ---
- Electroencephalogram Date of service 11/29/2018 History EEG is being done in this 68 yr F to rule out seizures EEG Description: This is an 18 channel EEG with 10-20 lead placement system. Bipolar montages, and Referential montages were reviewed. Photic stimulation and Hyperventilation were performed. The posterior dominant rhythm is 10 HZ synchronous, symmetric, reacting to eye opening and closing. Photo stimulation did not elicit normal driving response or any abnormal photoparoxysmal response, Hyperventilation did not elicit any abnormal photoparoxysmal response. Sleep was identified. There is no abnormal background slowing noted. There was no epileptiform discharges or electrographic seizures noted during this recording. EEG Interpretation This is a normal awake and asleep EEG. There is no epileptiform discharges or electrographic seizures noted during the record.
--- NOTE | 2018-11-29 16:19 | DCINST_ITS ---
- Discharge Diagnoses Current Active Problems: Current Active and Chronic Problems (Last Reviewed 11/28/18 @ 18:02 by Sonia Beasley DO) TIA (transient ischemic attack) (Acute) Interstitial lung disease (Chronic) Dyslipidemia (Chronic) Family history of colon cancer in father (Chronic) Confusion (Acute) You will use the following diet at home:: Cardiac - low fat and low salt Your food should be the consistency of: Regular Your liquids should be the consistency of: Regular/Thin Discharge Activity: Return to Normal Activity Call your doctor if you observe: Fever of 101 or Higher, Shortness of breath, Dizziness, Fainting spells, Swelling in the ankles, Chest pain Allergies/Adverse Reactions: Allergies No Known Allergies Allergy (Verified 05/05/18 12:12) Medications to take at Discharge Aspirin E.C. [Ecotrin] 81 mg PO QHS 10/02/16 Amlodipine [Norvasc] 5 mg PO DAILY 01/17/17 escitalopram 10 mg tablet 10 mg PO QHS 30 Days #30 06/22/17 pramipexole 0.125 mg tablet 0.125 mg PO QHS 05/05/18 Doxepin HCl 50 mg PO QHS 11/28/18 Primary Care Physician: Ernesto Hensley Chi, MD [Primary Care Provider] - Test Results: Test results from this visit will be discussed in further detail at your follow- up appointment, if applicable.
--- NOTE | 2018-11-29 19:18 | PCM.PROGNOTE ---
Patient Problems: Active and Suspected Problems (Last Reviewed 11/28/18 @ 18:02 by Sonia Beasley DO) TIA (transient ischemic attack) (Suspected) Confusion (Acute) Subjective: Patient was admitted to the hospital on 11/28/2018 with a 10 to 15-second episode of not being able to speak and being confused, not knowing who the president was. By the time she reached the emergency department her NIH was 0 and it has been 0 throughout the night. Noncontrasted CT brain at admission had no acute findings. CTA of the head and neck showed no significant areas of stenosis, no dissection and no aneurysms. She was seen in consultation by Dr. Mishra who ordered an EEG which revealed a normal study with no epileptiform activity. A repeat CT brain today again showed no acute findings. Lipid panel showed an LDL of 92 and a low HDL at 29 and she has been started on a statin. Echocardiogram showed a normal ejection fraction of 65%, normal diastology for age, negative bubble contrast study, no significant valvular heart disease and the PA pressure was estimated at 35 which is consistent with mild pulmonary hypertension. And overnight trending pulse ox showed 10 desaturations greater than 3 minutes and 42 desaturations less than [address] Mishra recommended continued therapy with aspirin 81 mg a day and did not recommend changing to Plavix. Telemetry shows normal sinus rhythm with a 6 beat run of nonsustained ventricular tachycardia. She denies chest pain and also denies shortness of breath. She had a stress test in December 2016 which she reports was negative. PHYSICAL EXAM: GENERAL: alert, oriented X 3, Cooperative, NAD ORAL: moist mucosa, no mucosal lesions NECK: No JVD, supple, trachea midline LUNGS: Coarse crackles in both lungs with no wheezing, symmetric chest expansion, no conversational dyspnea, no accessory muscle use, not tachypneic HEART: RRR, Normal S1 and S2, no rub, no gallop, no murmur ABDOMEN: soft, NT, ND, BS present, no guarding with palpation EXTREMITIES: no edema, no cyanosis, no calf tenderness SKIN: No rashes, no breakdown NEUROLOGIC: no focal neurologic deficits PSYCH: appropriate, normal affect, pleasant - Physical Exam Vital Signs Temp Pulse Resp BP Pulse Ox 98.1 F 87 18 151/92 H 93 11/29/18 18:15 11/29/18 18:15 11/29/18 18:15 11/29/18 18:15 11/29/18 18:15 Oxygen Delivery Method Room Air Weight: 173 lb 4.533 oz Body Mass Index (BMI) 31.8 Finger Stick Blood Glucose 112 Intake and Output for Last 24 Hours 11/27/18 11/28/18 11/29/18 23:59 23:59 23:59 Intake Total 1406 / 1406 2367 / 2367 Balance 1406 / 1406 2367 / 2367 Laboratory Tests Past 24 Hrs 11/29/18 11/29/18 11/29/18 05:35 05:35 05:35 WBC 4.9 RBC 4.05 L Hgb 11.3 L Hct 35.5 L MCV 87.7 MCH 27.9 MCHC 31.8 L RDW Std Deviation 46.2 H RDW Coeff of Josesito 14.3 Plt Count 200 MPV 10.0 Sodium 145 Potassium 4.2 Chloride 112 H Carbon Dioxide 28.0 Anion Gap 5 BUN 9 Creatinine 0.83 Estim Creat Clear Calc 47.59 Est GFR (MDRD) Af Amer 88 Est GFR (MDRD) Non-Af 73 BUN/Creatinine Ratio 10.9 Glucose 95 Hemoglobin A1c Calcium 8.2 L Phosphorus 2.6 Magnesium 1.8 Triglycerides 133 Cholesterol 148 LDL Cholesterol 92 VLDL Cholesterol 27 HDL Cholesterol 29 L 11/29/18 06:02 WBC RBC Hgb Hct MCV MCH MCHC RDW Std Deviation RDW Coeff of Josesito Plt Count MPV Sodium Potassium Chloride Carbon Dioxide Anion Gap BUN Creatinine Estim Creat Clear Calc Est GFR (MDRD) Af Amer Est GFR (MDRD) Non-Af BUN/Creatinine Ratio Glucose Hemoglobin A1c 5.5 Calcium Phosphorus Magnesium Triglycerides Cholesterol LDL Cholesterol VLDL Cholesterol HDL Cholesterol Medical Necessity - Tobacco Use Smoking Status: Former smoker Tobacco Use: Non-smoker Assessment/Plan All Active Problems (Last Reviewed 11/28/18 @ 18:02 by Sonia Beasley DO) Confusion (Acute) Hypertensive urgency (Resolved) Hypertensive urgency (Resolved) Left facial numbness (Resolved) Otitis media (Resolved) Staph skin infection (Resolved) Impressions 1. Suspected TIA 2. HTN 3. former smoking hx 4. hx of migraines 5. anxiety/depression hx 6. interstitial lung disease - sees Dr. Aggarwal 7. Low HDL 8. + FH of colon CA in her father - she has never had a colonoscopy 9. Nonsustained ventricular tachycardia 10. Sleep disordered breathing Treadmill nuclear stress test in the a.m. Will need an outpatient sleep study to be evaluated for possible sleep apnea. Continue statin at discharge She should have a colonoscopy as an outpatient because there is a family history of colon cancer in her father and she has never had a colonoscopy Continue aspirin 81 mg daily Code Visit OBSV E&M: 05163 Subsequent observation care L2
[2018-11-29] MEDS: Aspirin E.C. 81 MG Tablet PO (22:42)
[2018-11-29] MEDS: Escitalopram Oxalate 10 MG Tablet PO (22:43)
[2018-11-29] MEDS: Pramipexole Di-HCl 0.25 MG Tablet PO (22:43)
[2018-11-29] MEDS: DOXEPIN HCL 50 MG CAPSULE PO (22:43)
[2018-11-30 03:07] VITALS: PULSE 65
[2018-11-30 03:42] VITALS: BP 133/83; PULSE 70; RESP 20; TEMP 36.8; O2SAT 94
--- NOTE | 2018-11-30 05:00 | EKG12_ITS ---
Test Reason : AM EKG Blood Pressure : / mmHG Vent. Rate : 085 BPM Atrial Rate : 085 BPM P-R Int : 156 ms QRS Dur : 082 ms QT Int : 402 ms P-R-T Axes : 053 -19 012 degrees QTc Int : 478 ms Normal sinus rhythm Nonspecific ST abnormality Abnormal ECG When compared with ECG of 28-NOV-2018 15:42, MANUAL COMPARISON REQUIRED, DATA IS UNCONFIRMED Confirmed by JUAN VIVEROS ([id number]), editorial assistant YENIFER SANDERS ([id number]) on 12/02/2018 2:55:13 PM Referred By: AURY Confirmed By:JUAN VIVEROS
[2018-11-30 08:33] VITALS: BP 133/77; PULSE 71; PULSE 73; RESP 18; TEMP 36.8; O2SAT 94
[2018-11-30] MEDS: Acetaminophen 325 MG Tablet 650 MG PO (08:37)
--- NOTE | 2018-11-30 08:39 | STRESSREP_ITS ---
Stress Test Report Date: 11-30-18 Procedure: Exercise tolerance test/imaging study Indications: Shortness of breath/dyspnea; ventricular dysrhythmia Consent: Per the patient Procedure: The patient exercised on a Wagner protocol for 3 minutes and 45 seconds completing Stage 1 and 45 seconds of Stage II achieving a peak heart rate of 173 bpm (115 % predicted maximal heart rate) with a peak blood pressure 168/84 mmHg and a peak MET capacity of 5 METs. The baseline ECG demonstrated normal sinus rhythm; nonspecific ST/T wave abnormality. The peak exercise ECG demonstrated no obvious ECG changes. There were occasional PVCs pretest and during exercise. The functional capacity was considered decreased. There was no complaint of chest discomfort during exercise or recovery. The examination was discontinued secondary to dyspnea and leg discomfort. Impression: 1. Technically adequate (percent predicted maximal heart rate greater than 85%) exercise tolerance test 2. Peak exercise ECG with continued nonspecific ST and T wave abnormality with no obvious ECG changes compared to baseline 3. There were occasional PVCs pretest and during exercise 4. Nuclear images pending Myocardial perfusion imaging study: Technique: The patient was injected with 11.8 mCi of technetium 99m Cardiolite and subsequently rest SPECT Cardiolite nuclear imaging was obtained in the horizontal long, vertical long, and short axis views. The patient exercised on a Wagner protocol for 3 minutes and 45 seconds completing Stage 1 and 45 seconds of Stage II achieving a peak heart rate of 173 bpm (115 % predicted maximal heart rate) with a peak blood pressure 168/84 mmHg and a peak MET capacity of 5 METs. The patient was injected with 33.1 mCi of technetium 99m Cardiolite and subsequently stress SPECT Cardiolite nuclear imaging was obtained in the horizontal long, vertical long, and short axis views. A gated Cardiolite study at peak stress was obtained. Interpretation: Rest and stress SPECT Cardiolite nuclear imaging status post realignment, normalization, and attenuation correction, demonstrates the appearance of relative uniform tracer uptake and myocardial perfusion appearing within normal limits. There is end systolic thickening and brightening. The gated Cardiolite study demonstrates myocardial thickening and inward wall motion. The reported LVEF is 71 %. Impression: 1. Rest and stress SPECT Cardiolite nuclear imaging demonstrate relative uniform tracer uptake and myocardial perfusion appearing within normal limits. 2. The gated Cardiolite study reports an LVEF of 71 %. This note was generated with [employer] software. It may contain incorrect words, spelling, and punctuation that were not noted in checking the note before signing.
[2018-11-30] MEDS: amLODIPine 5 MG Tablet PO (09:19)
[2018-11-30] MEDS: Enoxaparin 40 MG/0.4 ML Syringe SC (09:19)
--- NOTE | 2018-11-30 11:37 | PN.NEURO_ITS ---
Patient Problems: Active and Suspected Problems (Last Reviewed 11/28/18 @ 18:02 by Sonia Beasley DO) NSVT (nonsustained ventricular tachycardia) (Acute) TIA (transient ischemic attack) (Suspected) Subjective: No issues overnight. Repeat CT head did not show any acute stroke. EEG was normal. - Physical Exam General: Alert HEENT: Normocephalic Neck: Supple Lungs: Normal air movement Cardiovascular: Normal S1, Normal S2 Abdomen: Bowel Sounds Present Extremities: No cyanosis Neurological: - - Conscious, alert, CN II through XII grossly intact, power 5 out of 5 both upper and lower extremities, no sensory loss, no cerebellar signs, gait deferred, reflexes + B/L B/S/T/K/A Vital Signs Temp Pulse Resp BP Pulse Ox 98.3 F 73 18 133/77 H 94 11/30/18 08:33 11/30/18 08:33 11/30/18 08:33 11/30/18 08:33 11/30/18 08:33 Oxygen Delivery Method Room Air Weight: 78.6 kg Body Mass Index (BMI) 31.8 Finger Stick Blood Glucose 112 Intake and Output for Last 24 Hours 11/28/18 11/29/18 11/30/18 23:59 23:59 23:59 Intake Total 1406 / 1406 2617 / 2617 0 / 0 Balance 1406 / 1406 2617 / 2617 0 / 0 Laboratory Tests Past 24 Hrs 11/29/18 06:02 Hemoglobin A1c 5.5 Medical Necessity - Tobacco Use Smoking Status: Former smoker Tobacco Use: Non-smoker Assessment/Plan All Active Problems (Last Reviewed 11/28/18 @ 18:02 by Sonia Beasley DO) NSVT (nonsustained ventricular tachycardia) (Acute) Confusion (Resolved) Hypertensive urgency (Resolved) Hypertensive urgency (Resolved) Left facial numbness (Resolved) Otitis media (Resolved) Staph skin infection (Resolved) The patient is a 68 year old F with PMH HTN, HLD, migraine, anxiety obesity admitted with confusional episode. History is obtained from the patient, her and medical records. Per liver in the restaurant on 11/28/2018 when she suddenly had episode of confusion, was slow in getting her words out but there was no aphasia or dysarthria, also had shaking of the upper extremities, patient was aware of the event, there was no tongue bite, urinary incontinence or witnessed seizure event. On admission patient SBP was greater than 160 mmHg. Per patient the episode lasted for few minutes before resolving completely. At present denies any headache, Dizziness, focal motor weakness, sensory loss, speech disturbances or visual disturbances. She lives with her , denies any falls, does not use any cane or walker to ambulate and does drive. CT head done on admission did not show any acute stroke, CTA head/neck did not show any hemodynamically significant stenosis or occlusion. Patient does not want to get MRI brain as she is very claustrophobic. Impression Possible TIA versus TGA Plan ?Patient does not want to get an MRI brain as she is very claustrophobic. ?Repeat CT head-did not show any acute stroke ?EEG-normal ?CTA head/neck did not show any hemodynamically segment stenosis or occlusion ?On aspirin and Lipitor. ABCD 2 score is about 2. Will hold off on dual antiplatelets at present. Bleeding risks discussed. ?TTE?EF 65%, normal left atrial size, PFO negative. ?LDL 92, HbA1c?5.5 ?Stroke risk factors discussed and stroke education provided ?Goal blood pressure less than 130/80 mmHg and goal HbA1c less than 7% ?PT/OT ?GI/DVT prophylaxis ?Fall precautions ?Further medical management per hospitalist team ?Follow-up with neurology as outpatient in 4 weeks ?Please call with questions if any ?Thank you for allowing us to participate in patient's care and management This note has been generated using [employer] dictation software. It may contain incorrect words, spellings and punctuation's which were not noted in the review of the note prior to signing.
--- NOTE | 2018-11-30 13:31 | DCINST_ITS ---
- Discharge Diagnoses Current Active Problems: Current Active and Chronic Problems (Last Reviewed 11/28/18 @ 18:02 by Sonia Beasley DO) Interstitial lung disease (Chronic) Dyslipidemia (Chronic) Family history of colon cancer in father (Chronic) Confusion (Acute) You will use the following diet at home:: Cardiac - low cholesterol and low salt Your food should be the consistency of: Regular Your liquids should be the consistency of: Regular/Thin Discharge Activity: Return to Normal Activity May resume sexual activity in: No Restrictions Call your doctor if you observe: Fever of 101 or Higher, Fainting spells, Chest pain, - - inability to get your speech out, numbness or weakness on 1 side of your body and not the other, slurred speech, facial droop, sudden loss of vision Additional Instructions: 1. The EEG did not show any seizures. The stress test was normal so we have no evidence that you have any significant coronary artery disease. The angiogram of the head and neck showed no significant narrowing of the arteries. I do not know exactly what caused the symptoms you had at admission. You did have non-sustained ventricular tachycardia on the heart monitor. This could cause the symptoms you had a admission. You take a drug called Doxepin in a high dose. This drug can prolong the QT interval on the EKG. When used in conjunction with Escitalopram there is even greater chance of prolonging the QT interval and causing ventricular tachycardia. I recommend you get off Doxepin. This drug can not be abruptly dicontinued and it will have to be weaned off over the next 2-4 weeks. You should discuss this with your PCP. 2. I have started you on Lipitor, also called atorvastatin, to help control the bad cholesterol (LDL) and keep it less than 70. Currently it is 94 so you are on a low dose of atorvastatin. Your PCP will need to recheck a lipid panel and also a liver panel and CK in 6 weeks. I will be sending a copy of the discharge summary I dictate to Dr. Goddard so he knows what transpired in the hospital. Pending Tests on Discharge: none Allergies/Adverse Reactions: Allergies No Known Allergies Allergy (Verified 05/05/18 12:12) Medications to take at Discharge Aspirin E.C. [Ecotrin] 81 mg PO QHS 10/02/16 Amlodipine [Norvasc] 5 mg PO DAILY 01/17/17 escitalopram 10 mg tablet 10 mg PO QHS 30 Days #30 06/22/17 pramipexole 0.125 mg tablet 0.25 mg PO QHS 05/05/18 Doxepin HCl 50 mg PO QHS 11/28/18 Atorvastatin Calcium 20 mg PO QHS #30 tab 11/30/18 The following prescriptions were given: Atorvastatin Calcium 20 mg PO QHS #30 tab Transmission Status: Pending to [facility] Primary Care Physician: Ernesto Hensley Chi, MD [Primary Care Provider] - Please follow up with your Primary Care Physician in: 5-7 days Test Results: Test results from this visit will be discussed in further detail at your follow- up appointment, if applicable. Proposed Discharge Date: 11/30/18
[2018-11-30 13:32] VITALS: BP 138/75; PULSE 80; RESP 16; TEMP 36.7; O2SAT 91
--- NOTE | 2018-11-30 14:08 | CASEMGMT ---
Social Work PT admitted with dx of TIA. SW met with pt and completed PHQ9. Pt scored 0/27 with no indications of depression. Pt made aware of risk of depression related to stroke and TIA. No further SW needs at this time. FREEDOM Valdez
--- NOTE | 2018-11-30 14:13 | DS.PCM_ITS ---
Discharge Date and Diagnosis - Problem List Patient Problems: Active and Suspected Problems (Last Reviewed 11/28/18 @ 18:02 by Sonia Beasley DO) NSVT (nonsustained ventricular tachycardia) (Acute) Date of Admission: 11/28/18 Date of Discharge: 11/30/18 - Primary Discharge Diagnosis Active and Suspected Problems (Last Reviewed 11/28/18 @ 18:02 by Sonia Beasley DO) NSVT (nonsustained ventricular tachycardia) (Acute) TIA (transient ischemic attack) vs ventricular dysrhythmia at admission Sleep disordered breathing with an abnormal overnight trending pulse ox - Secondary Discharge Diagnosis Chronic Problems (Last Reviewed 11/28/18 @ 18:02 by Sonia Beasley DO) Interstitial lung disease (Chronic) - follows with Dr. Aggarwal Dyslipidemia (Chronic) Family history of colon cancer in father (Chronic) - has never had a colonoscopy History of tobacco use (Chronic) smoked for 30 years and quit about 1998 at 48 YOA Hypertension (Chronic) Migraine (Chronic) Obesity (BMI 30.0-34.9) (Chronic) Anxiety and depression (Chronic) Restless leg syndrome Hospital Course and Treatment Imaging Results: Clinical Impression(s) from Imaging Studies Brain CT 11/28/18 15:26 IMPRESSION: No acute intracranial hemorrhage or mass effect. Normal for age. Electronically Signed: Ajay Dooley MD (Brooks) at 16:30 EDT , Service support , Head/Neck CTA 11/28/18 16:42 IMPRESSION: No CTA evidence of significant intracranial arterial pathology. No CTA evidence of significant arterial pathology in the neck. Ill-defined left thyroid nodule. Consider ultrasound follow-up. NASCET criteria was used. Electronically Signed: Boyd Boyle MD at 17:58 EDT Tel , Service support , Brain CT 11/29/18 13:12 IMPRESSION: No acute intracranial pathology. No significant change from yesterday. Electronically Signed: Ezequiel Tipton DO at 17:41 EDT Tel , Service support , Laboratory Results - last 24 hr 11/29/18 06:[address] Jonh Mishra-neurology Operations: None Procedures: 2-D Echocardiogram - Interpretation Summary Performed a rapid injection of agitated mix of 9 cc saline and 1cc air to assess for atrial septal defect. Diluted definity 4ml given slow IV push to enhance endocardial definition. The estimated ejection fraction is 65 %. Normal diastology for age. Bubble contrast study negative for right to left interatrial shunt. Trivial mitral valve insufficiency. Mild mitral valve prolapse, posterior leaflet Mild tricuspid valve insufficiency. Pulmonary artery systolic pressure is 35 mmHg. No definite left ventricular thrombus seen The study was technically limited. Contrast injection was performed., Stress test - Impression: 1. Rest and stress SPECT Cardiolite nuclear imaging demonstrate relative uniform tracer uptake and myocardial perfusion appearing within normal limits. 2. The gated Cardiolite study reports an LVEF of 71 %., - - overnight trending pulse ox Summary of Care Provided: The patient is a 68 year old F with a past medical history of hypertension, former smoking history, restless leg syndrome, anxiety/depression and interstitial lung disease who presented to the emergency department at [facility] on 11/28/2018 complaining of a transient episode of not being able to speak associated with shaking of both arms and confusion. This lasted approximately 10 sec per her . She was unable to name the president. She denied any history of TIA or CVA in the past. Her NIH at presentation to the emergency department was 0. Vital signs at presentation to the emergency department were temperature 98.4, pulse rate 115, blood pressure 165/87, respiratory rate 18 and the pulse ox ranged from 93 to 99% on room air. A noncontrasted CT brain revealed no acute findings. CBC was unremarkable with the exception of mild increase in eosinophils to 6.6%. The BMP was unremarkable. A recent hemoglobin A1c was 5.5. Troponin was less than 0.015. The EKG showed normal sinus rhythm with left anterior hemiblock but no suspicious ST or T wave changes. UA was negative for infection. A stress test done in 2017 was negative for ischemia and showed a ejection fraction of 71%. She had a recent CT scan of her chest that showed interstitial scarring. A CTA of the head and neck was done in the ED and showed no CT evidence of significant intracranial arterial pathology and no CT evidence of significant arterial pathology in the neck. She had a left thyroid nodule. She denied headache, chest pain, shortness of breath at rest, nausea, unilateral weakness or nu mbness. She denied any history of seizures. She was admitted to a monitored bed on PCU and the TIA/stroke protocol was initiated. She had no recurrence of symptoms and her NIH scores were all 0. She was seen in consultation by Dr. Mishra who recommended an EEG and follow-up CT scan. She refused an MRI. The second CT scan once again showed no acute findings. The EEG was normal and negative for any epileptiform activity. Telemetry on 11/29/2018 showed a run of nonsustained ventricular tachycardia. She had a stress test on 11/30 that was negative for ischemia and showed a gated nuclear EF of 71%. She is on Doxepin and an SSRI. QTc interval was mildly prolonged. The combination of doxepin and an SSRI increases the risk for prolonged QT inerval and cardiac dysrhythmias. She is on a high dose of Doxepin. I recommended that she get off the Doxepin in light of the prolonged QTc and the NSVT on telemetry. She understands that the Doxepin will need to be tapered off over the next few weeks. She is going to decrease the dose to 25 mg at at bedtime and will continue this dose until she sees Dr. Hensley as an outpatient. She has been taking an SSRI for 10 years and she feels that she no longer needs it. I recommend she discuss this with Dr. Hensley. I also recommended since there is a FH of colon CA in her father that she have a colonoscopy and she will also discuss this with Dr. Hensley. While in the hospital she had an overnight trending pulse ox and had 10 desaturations greater than 3 minutes and 42 desaturations less than 30 minutes. She has restless leg and feels tired during the day. Her states that she snores. I recommended she discuss an outpatient sleep study with Dr. Aggarwal. She was discharged home on 11/30/2018. she will continue ASA 81 mg daily and she was given a RX for Lipitor 20 mg for an LDL of 94. the goal for a pt with possible TIA is 70 or less. She should have a lipid profile, liver profile and CK done in 6 weeks and she will request that Dr. Hensley order these tests. GENERAL: alert, oriented X 3, Cooperative, NAD ORAL: moist mucosa, no mucosal lesions NECK: No JVD, supple, trachea midline LUNGS: Coarse crackles in both lungs with no wheezing, symmetric chest expansion, no conversational dyspnea, no accessory muscle use, not tachypneic HEART: RRR, Normal S1 and S2, no rub, no gallop, no murmur ABDOMEN: soft, NT, ND, BS present, no guarding with palpation EXTREMITIES: no edema, no cyanosis, no calf tenderness SKIN: No rashes, no breakdown NEUROLOGIC: no focal neurologic deficits PSYCH: appropriate, normal affect, pleasant This note was generated with [email or web address] dictation software. It may contain incorrect words, spelling, and punctuation that were not noted in checking the note before signing. Patient Problems: Active and Suspected Problems (Last Reviewed 11/28/18 @ 18:02 by Sonia Beasley DO) NSVT (nonsustained ventricular tachycardia) (Acute) - Physical Exam Vital Signs Temp Pulse Resp BP Pulse Ox 98.0 F 80 16 138/75 H 91 11/30/18 13:32 11/30/18 13:32 11/30/18 13:32 11/30/18 13:32 11/30/18 13:32 Oxygen Delivery Method Room Air Weight: 173 lb 4.533 oz Body Mass Index (BMI) 31.8 Finger Stick Blood Glucose 112 Intake and Output for Last 24 Hours 11/28/18 11/29/18 11/30/18 23:59 23:59 23:59 Intake Total 1406 / 1406 2617 / 2617 200 / 200 Balance 1406 / 1406 2617 / 2617 200 / 200 Laboratory Tests Past 24 Hrs 11/29/18 06:02 Hemoglobin A1c 5.5 Discharge Activity: Return to Normal Activity May resume sexual activity in: No Restrictions Call your doctor if you observe: Fever of 101 or Higher, Fainting spells, Chest pain, - - inability to get your speech out, numbness or weakness on 1 side of your body and not the other, slurred speech, facial droop, sudden loss of vision Home Medications: Medications to take at Discharge Aspirin E.C. [Ecotrin] 81 mg PO QHS 10/02/16 Amlodipine [Norvasc] 5 mg PO DAILY 01/17/17 escitalopram 10 mg tablet 10 mg PO QHS 30 Days #30 06/22/17 pramipexole 0.125 mg tablet 0.25 mg PO QHS 05/05/18 Doxepin HCl 50 mg PO QHS 11/28/18 Atorvastatin Calcium 20 mg PO QHS #30 tab 11/30/18 Following Prescrptions Were Given to Patient: Atorvastatin Calcium 20 mg PO QHS #30 tab Transmission Status: Received by [facility] Primary Care Physician: Ernesto Hensley Chi, MD [Primary Care Provider] - Please follow up with your Primary Care Physician in: 5-7 days Disposition: Home Minutes spent on discharge:: 35 Patient Condition:: Good Medical Necessity - Tobacco Use Smoking Status: Former smoker Tobacco Use: Non-smoker Meaningful Use Info Meaningful Use Diagnoses (Choose all that apply): None applicable Code Visit OBSV E&M: 16259 Observation care discharge
== END 2018-11-30 13:54 | disposition home or self-care (01) ==
LOC: ED 15:31 → PCU 18:18
PROVIDERS: Psychiatry & Neurology Neurology; Admitting Provider Internal Medicine; Emergency Provider Emergency Medicine; Family Provider Family Medicine Geriatric Medicine; PCP Family Medicine Geriatric Medicine; Visit Provider Internal Medicine
DX: I47.2 Ventricular tachycardia (principal); R29.700 NIHSS score 0; E04.1 Nontoxic single thyroid nodule; I10 Essential (primary) hypertension; G43.909 Migraine, unspecified, not intractable, without status migrainosus; E78.5 Hyperlipidemia, unspecified; E66.9 Obesity, unspecified; F41.9 Anxiety disorder, unspecified; Z87.891 Personal history of nicotine dependence; Z79.899 Other long term (current) drug therapy; Z79.82 Long term (current) use of aspirin; Z68.32 Body mass index [BMI] 32.0-32.9, adult; Z71.3 Dietary counseling and surveillance; F32.9 Major depressive disorder, single episode, unspecified; J84.9 Interstitial pulmonary disease, unspecified; R41.0 Disorientation, unspecified; G25.81 Restless legs syndrome; I07.1 Rheumatic tricuspid insufficiency; R94.31 Abnormal electrocardiogram [ECG] [EKG]
CPT/HCPCS: 36415; 70450; 70496; 70498; 78452; 80048; 80061; 80076; 81001; 82962; 83036; 83735; 84100; 84484; 85025; 85027; 93005; 93017; 93306; 94762; 95819; 96360; 96361; 96372; 97802; 99218; 99285; A9500; J7030; Q9957; Q9967; A4216; C8929; G0378

== ENCOUNTER → 2019-01-03 10:13 | Outpatient (CLI) | payer MEDICARE, SELFPAY ==
[2019-01-03 10:13] VITALS: BMI 31.7
[2019-01-03 17:12] LABS: Absolute Lymphocyte Count 1.23 X10^3/uL (0.83-4.51); Absolute Neutrophil Count 5.9 X10^3/uL (2.0-7.7); Basophil# 0.02 X10^3/uL; Basophil% 0.2 % (0-1); Eosinophil# 0.33 X10^3/uL; Eosinophils% 4.1 % (0-5); Hematocrit 41.7 % (37-47); Hemoglobin 12.8 g/dL (12.0-15.0); Lymphocyte # 1.23 X10^3/ul (4.0); Lymphocyte % 15.3 % (19-41); Mean Corp Hgb Conc 30.7 g/dL (32-36); Mean Corpuscular Hgb 27.2 pg (27.0-32.0); Mean Corpuscular Volume 88.7 fL (81-99); Monocyte# 0.55 X10^3/uL; Monocyte% 6.8 % (0-10); NRBC Flagged by Analyzer 0 % (0-5); Neutrophil # 5.86 X10^3/uL (2.7-7.7); Neutrophil % 72.9 % (47-70); Platelet Count 263 K/mm3 (150-450); RBC Distribution Width CV 14.7 % (11.6-14.6); RBC Distribution Width SD 47.7 fl (35.1-43.9); White Blood Count 8.1 K/mm3 (4.4-11.0)
[2019-01-03 17:30] LABS: Vitamin D,25 Hydroxy 33.8 ng/mL (29.95-100.01)
[2019-01-03 17:31] LABS: AST(SGOT) 18 U/L (15-37); Alanine Aminotransfer ALT/SGPT 26 U/L (13-56); Albumin, Serum 3.5 g/dL (3.2-5.0); Alkaline Phosphatase 115 U/L (45-117); Anion Gap 10 (5-15); BUN 12 mg/dL (7-18); BUN/Creat Ratio 12.3 RATIO (10-20); Calcium,Total 8.7 mg/dL (8.5-10.1); Chloride 110 mmol/L (98-107); Cholesterol 106 mg/dL (200); Creatinine, Serum 0.98 mg/dL (0.55-1.02); EST Glomerular Filtration Rate 60 mL/min (>60); Est Glom Filt Rate - Afr Amer 72 mL/min (>60); Globulin 3.5 g/dL (2.2-4.2); Glucose 123 mg/dL (74-106); High Density Lipoprotein 34 mg/dL; Sodium Level 145 mmol/L (136-145); Thyroid Stim Hormone (TSH) 1.77 uIU/mL (0.358-3.74); Triglycerides 110 mg/dL; Very Low Density Lipoprotein 22 mg/dL (5-40)
== END ==
PROVIDERS: Family Provider Family Medicine Geriatric Medicine; PCP Family Medicine Geriatric Medicine; Visit Provider Family Medicine Geriatric Medicine
DX: E55.9 Vitamin D deficiency, unspecified (principal); E78.5 Hyperlipidemia, unspecified; I10 Essential (primary) hypertension
CPT/HCPCS: 36415; 80053; 80061; 82306; 84443; 85025

== ENCOUNTER → 2019-04-04 14:45 | Outpatient (CLI) | payer MEDICARE, SELFPAY ==
[2019-01-03 10:13] VITALS: BMI 31.7
[2019-04-04 17:14] LABS: Vitamin D,25 Hydroxy 22.2 ng/mL (29.95-100.01)
[2019-04-04 17:15] LABS: ALB/GLOB Ratio 1.1 RATIO (0.9-2.4); AST(SGOT) 17 U/L (15-37); Alanine Aminotransfer ALT/SGPT 22 U/L (13-56); Albumin, Serum 3.6 g/dL (3.2-5.0); Alkaline Phosphatase 112 U/L (45-117); Anion Gap 7 (5-15); BUN 9 mg/dL (7-18); BUN/Creat Ratio 8.4 RATIO (10-20); Calcium,Total 9.3 mg/dL (8.5-10.1); Chloride 108 mmol/L (98-107); Cholesterol 121 mg/dL (200); Creatinine, Serum 1.07 mg/dL (0.55-1.02); EST Glomerular Filtration Rate 54 mL/min (>60); Est Glom Filt Rate - Afr Amer 65 mL/min (>60); Globulin 3.4 g/dL (2.2-4.2); Glucose 123 mg/dL (74-106); High Density Lipoprotein 40 mg/dL; Potassium 4.5 mmol/L (3.5-5.1); Sodium Level 143 mmol/L (136-145); Thyroid Stim Hormone (TSH) 2.45 uIU/mL (0.358-3.74); Triglycerides 90 mg/dL; Very Low Density Lipoprotein 18 mg/dL (5-40)
[2019-04-04 17:36] LABS: Absolute Lymphocyte Count 1.25 X10^3/uL (0.83-4.51); Basophil# 0.02 X10^3/uL; Basophil% 0.3 % (0-1); Eosinophil# 0.45 X10^3/uL; Eosinophils% 6.3 % (0-5); Hemoglobin 13.1 g/dL (12.0-15.0); Lymphocyte # 1.25 X10^3/ul (4.0); Lymphocyte % 17.4 % (19-41); Mean Corp Hgb Conc 31.2 g/dL (32-36); Mean Corpuscular Hgb 27.5 pg (27.0-32.0); Mean Corpuscular Volume 88.1 fL (81-99); Mean Platelet Vol. 10.1 fl (6.2-12.0); Monocyte# 0.46 X10^3/uL; Monocyte% 6.4 % (0-10); NRBC Flagged by Analyzer 0 % (0-5); Neutrophil # 4.98 X10^3/uL (2.7-7.7); Platelet Count 297 K/mm3 (150-450); RBC Distribution Width CV 14.7 % (11.6-14.6); RBC Distribution Width SD 47.8 fl (35.1-43.9); Red Blood Count 4.77 M/mm3 (4.2-5.4); White Blood Count 7.2 K/mm3 (4.4-11.0)
== END ==
PROVIDERS: Family Provider Family Medicine Geriatric Medicine; PCP Family Medicine Geriatric Medicine; Visit Provider Family Medicine Geriatric Medicine
DX: E55.9 Vitamin D deficiency, unspecified (principal); E78.5 Hyperlipidemia, unspecified; I10 Essential (primary) hypertension
CPT/HCPCS: 36415; 80053; 80061; 82306; 84443; 85025

== ENCOUNTER → 2019-05-17 13:44 | Outpatient (CLI) | payer MEDICARE, SELFPAY ==
[2019-01-03 10:13] VITALS: BMI 31.7
[2019-05-17 17:10] LABS: AST(SGOT) 18 U/L (15-37); Alanine Aminotransfer ALT/SGPT 32 U/L (13-56); Albumin, Serum 3.4 g/dL (3.2-5.0); Alkaline Phosphatase 132 U/L (45-117); Bilirubin, Direct 0.13 mg/dL (0.00-0.30); Globulin 3.8 g/dL (2.2-4.2); Protein, Total 7.2 g/dL (6.4-8.2)
== END ==
PROVIDERS: PCP Family Medicine Geriatric Medicine; Visit Provider Internal Medicine Pulmonary Disease
DX: J84.10 Pulmonary fibrosis, unspecified (principal)
CPT/HCPCS: 36415; 80076

== ENCOUNTER → 2019-06-02 16:06 | Outpatient (CLI) | payer MEDICARE, SELFPAY ==
[2019-01-03 10:13] VITALS: BMI 31.7
--- NOTE | 2019-06-02 16:15 | RAD_ITS ---
STUDY: X-RAY CHEST REASON FOR EXAM: Female, 69 years old. bronchitis, cough x 1 week TECHNIQUE: 2 views COMPARISON: Prior chest radiograph of April 26, 2018, June 22, 2017 FINDINGS: Stable diffuse chronic lung changes without new consolidation or focal atelectasis. Negative for pleural effusion. Stable cardiac size. Normal mediastinum and brennan. Normal visualized pulmonary arteries. Normal visualized aortic arch and descending thoracic aorta. There are diffuse degenerative changes of the visualized thoracic spine. Normal visualized ribs, clavicles, and shoulders. There is no demonstrated abnormality of the visualized soft tissue structures of the upper abdomen. RAD/Chest PA and Lateral IMPRESSION: Stable diffuse interstitial lung changes without new consolidation, focal atelectasis, cardiomegaly or pleural effusion. Electronically Signed: Anaid Jordan MD at 19:24 EST , Service support ,
== END ==
LOC: RAD.FUTURE 16:09 → RAD 16:11
PROVIDERS: PCP Family Medicine Geriatric Medicine; Referring Provider Family Medicine Geriatric Medicine; Visit Provider Family Medicine Geriatric Medicine
DX: J41.0 Simple chronic bronchitis (principal); M79.10 Myalgia, unspecified site
CPT/HCPCS: 71046; 87633

== ENCOUNTER → 2019-07-08 10:09 | Outpatient (CLI) | payer MEDICARE, SELFPAY ==
[2019-07-07 16:21] VITALS: BMI 31.7
== END ==
PROVIDERS: PCP Family Medicine Geriatric Medicine; Referring Provider Physician Assistant; Visit Provider Physician Assistant
DX: T14.8XXA Other injury of unspecified body region, initial encounter (principal)
CPT/HCPCS: 87070; 87205

== ENCOUNTER → 2019-08-19 13:03 | Outpatient (CLI) | payer MEDICARE, SELFPAY ==
[2019-07-07 16:21] VITALS: BMI 31.7
[2019-08-19 14:26] LABS: AST(SGOT) 25 U/L (15-37); Alanine Aminotransfer ALT/SGPT 47 U/L (13-56); Albumin, Serum 3.5 g/dL (3.2-5.0); Alkaline Phosphatase 141 U/L (45-117); Bilirubin, Direct 0.17 mg/dL (0.00-0.30); Globulin 3.5 g/dL (2.2-4.2)
== END ==
PROVIDERS: PCP Family Medicine Geriatric Medicine; Referring Provider Internal Medicine Pulmonary Disease; Visit Provider Internal Medicine Pulmonary Disease
DX: J84.10 Pulmonary fibrosis, unspecified (principal)
CPT/HCPCS: 36415; 80076

== ENCOUNTER → 2019-08-31 14:07 | Outpatient (CLI) | payer MEDICARE, SELFPAY ==
[2019-07-07 16:21] VITALS: BMI 31.7
[2019-08-31 15:34] LABS: Absolute Lymphocyte Count 1.46 X10^3/uL (0.83-4.51); Absolute Neutrophil Count 5.4 X10^3/uL (2.0-7.7); Basophil# 0.03 X10^3/uL; Basophil% 0.4 % (0-1); Eosinophil# 0.42 X10^3/uL; Eosinophils% 5.3 % (0-5); Hemoglobin 13.7 g/dL (12.0-15.0); Lymphocyte # 1.46 X10^3/ul (4.0); Lymphocyte % 18.6 % (19-41); Mean Corp Hgb Conc 31.9 g/dL (32-36); Mean Corpuscular Hgb 29.1 pg (27.0-32.0); Mean Corpuscular Volume 91.3 fL (81-99); Mean Platelet Vol. 10.1 fl (6.2-12.0); Monocyte# 0.56 X10^3/uL; Monocyte% 7.1 % (0-10); NRBC Flagged by Analyzer 0 % (0-5); Neutrophil # 5.37 X10^3/uL (2.7-7.7); Neutrophil % 68.2 % (47-70); Platelet Count 269 K/mm3 (150-450); RBC Distribution Width SD 50.2 fl (35.1-43.9); Red Blood Count 4.71 M/mm3 (4.2-5.4); White Blood Count 7.9 K/mm3 (4.4-11.0)
[2019-08-31 15:51] LABS: Vitamin D,25 Hydroxy 20.9 ng/mL
[2019-08-31 16:05] LABS: ALB/GLOB Ratio 0.9 RATIO (0.9-2.4); AST(SGOT) 39 U/L (15-37); Alanine Aminotransfer ALT/SGPT 74 U/L (13-56); Albumin, Serum 3.4 g/dL (3.2-5.0); Alkaline Phosphatase 160 U/L (45-117); Anion Gap 10 (5-15); BUN 8 mg/dL (7-18); BUN/Creat Ratio 8.4 RATIO (10-20); Calcium,Total 8.8 mg/dL (8.5-10.1); Chloride 105 mmol/L (98-107); Cholesterol 119 mg/dL (200); Creatinine, Serum 0.95 mg/dL (0.55-1.02); EST Glomerular Filtration Rate 62 mL/min (>60); Est Glom Filt Rate - Afr Amer 75 mL/min (>60); Globulin 3.6 g/dL (2.2-4.2); Glucose 115 mg/dL (74-106); High Density Lipoprotein 37 mg/dL; Potassium 3.8 mmol/L (3.5-5.1); Sodium Level 143 mmol/L (136-145); Thyroid Stim Hormone (TSH) 2.01 uIU/mL (0.358-3.74); Triglycerides 110 mg/dL; Very Low Density Lipoprotein 22 mg/dL (5-40)
== END ==
PROVIDERS: PCP Family Medicine Geriatric Medicine; Visit Provider Family Medicine Geriatric Medicine
DX: E55.9 Vitamin D deficiency, unspecified (principal); E78.5 Hyperlipidemia, unspecified; I10 Essential (primary) hypertension
CPT/HCPCS: 36415; 80053; 80061; 82306; 84443; 85025

== ENCOUNTER → 2019-10-11 12:19 | Outpatient (CLI) | payer MEDICARE, SELFPAY ==
[2019-07-07 16:21] VITALS: BMI 31.7
[2019-10-11 15:49] LABS: AST(SGOT) 20 U/L (15-37); Alanine Aminotransfer ALT/SGPT 28 U/L (13-56); Albumin, Serum 3.3 g/dL (3.2-5.0); Alkaline Phosphatase 133 U/L (45-117); Bilirubin, Direct 0.22 mg/dL (0.00-0.30); Globulin 3.7 g/dL (2.2-4.2)
== END ==
PROVIDERS: PCP Family Medicine Geriatric Medicine; Referring Provider Internal Medicine Pulmonary Disease; Visit Provider Internal Medicine Pulmonary Disease
DX: J84.10 Pulmonary fibrosis, unspecified (principal)
CPT/HCPCS: 36415; 80076

== ENCOUNTER → 2019-11-04 13:30 | Outpatient (CLI) | payer MEDICARE, SELFPAY ==
[2019-07-07 16:21] VITALS: BMI 31.7
[2019-11-04 14:37] LABS: AST(SGOT) 17 U/L (15-37); Alanine Aminotransfer ALT/SGPT 35 U/L (13-56); Albumin, Serum 3.3 g/dL (3.2-5.0); Alkaline Phosphatase 116 U/L (45-117); Bilirubin, Direct 0.23 mg/dL (0.00-0.30); Globulin 3.4 g/dL (2.2-4.2); Protein, Total 6.7 g/dL (6.4-8.2)
== END ==
PROVIDERS: PCP Family Medicine Geriatric Medicine; Referring Provider Internal Medicine Pulmonary Disease; Visit Provider Internal Medicine Pulmonary Disease
DX: J84.10 Pulmonary fibrosis, unspecified (principal); Z79.899 Other long term (current) drug therapy
CPT/HCPCS: 36415; 80076

== ENCOUNTER → 2019-11-30 14:30 | Outpatient (CLI) | payer MEDICARE, SELFPAY ==
[2019-07-07 16:21] VITALS: BMI 31.7
[2019-11-30 15:44] LABS: Absolute Lymphocyte Count 1.47 X10^3/uL (0.83-4.51); Absolute Neutrophil Count 5.8 X10^3/uL (2.0-7.7); Basophil# 0.03 X10^3/uL; Basophil% 0.4 % (0-1); Eosinophil# 0.47 X10^3/uL; Eosinophils% 5.6 % (0-5); Hematocrit 43.8 % (37-47); Hemoglobin 13.2 g/dL (12.0-15.0); Lymphocyte # 1.47 X10^3/ul (4.0); Lymphocyte % 17.5 % (19-41); Mean Corp Hgb Conc 30.1 g/dL (32-36); Mean Corpuscular Hgb 27.6 pg (27.0-32.0); Mean Corpuscular Volume 91.4 fL (81-99); Mean Platelet Vol. 10.2 fl (6.2-12.0); Monocyte# 0.62 X10^3/uL; Monocyte% 7.4 % (0-10); NRBC Flagged by Analyzer 0 % (0-5); Neutrophil # 5.76 X10^3/uL (2.7-7.7); Neutrophil % 68.6 % (47-70); Platelet Count 277 K/mm3 (150-450); RBC Distribution Width CV 14.9 % (11.6-14.6); RBC Distribution Width SD 50.2 fl (35.1-43.9); Red Blood Count 4.79 M/mm3 (4.2-5.4); White Blood Count 8.4 K/mm3 (4.4-11.0)
[2019-11-30 15:54] LABS: Vitamin D,25 Hydroxy 39.8 ng/mL
[2019-11-30 16:08] LABS: ALB/GLOB Ratio 0.9 RATIO (0.9-2.4); AST(SGOT) 40 U/L (15-37); Alanine Aminotransfer ALT/SGPT 48 U/L (13-56); Albumin, Serum 3.5 g/dL (3.2-5.0); Alkaline Phosphatase 144 U/L (45-117); Anion Gap 4 (5-15); BUN 8 mg/dL (7-18); BUN/Creat Ratio 7.3 RATIO (10-20); Calcium,Total 9.5 mg/dL (8.5-10.1); Chloride 108 mmol/L (98-107); Cholesterol 111 mg/dL (200); EST Glomerular Filtration Rate 52 mL/min (>60); Est Glom Filt Rate - Afr Amer 63 mL/min (>60); Globulin 3.7 g/dL (2.2-4.2); Glucose 112 mg/dL (74-106); High Density Lipoprotein 37 mg/dL; Protein, Total 7.2 g/dL (6.4-8.2); Sodium Level 143 mmol/L (136-145); Thyroid Stim Hormone (TSH) 2.05 uIU/mL (0.358-3.74); Triglycerides 101 mg/dL; Very Low Density Lipoprotein 20 mg/dL (5-40)
== END ==
PROVIDERS: PCP Family Medicine Geriatric Medicine; Visit Provider Family Medicine Geriatric Medicine
DX: E55.9 Vitamin D deficiency, unspecified (principal); E78.5 Hyperlipidemia, unspecified; I10 Essential (primary) hypertension
CPT/HCPCS: 36415; 80053; 80061; 82306; 84443; 85025

== ENCOUNTER → 2020-01-12 13:43 | Outpatient (CLI) | payer MEDICARE, SELFPAY ==
[2019-07-07 16:21] VITALS: BMI 31.7
--- NOTE | 2020-01-12 13:45 | VDLE_ITS ---
Reason For Study: pain Procedure LEFT Exam performed in department. GSV is normal. The exam was diagnostic. CFV is compressible, spontaneous, phasic, A preliminary report was called and/or faxed competent, and demonstrates normal to Dr. Aggarwal. augmentation. FV is compressible, spontaneous, phasic, competent and demonstrates normal augmentation. POP V is compressible, spontaneous, phasic, competent and demonstrates normal augmentation. T/P Trunk is compressible. PTV is compressible. LT PerV is compressible. Interpretation Summary Deep veins of the left lower extremity are patent and compressible segmentally. There is no evidence of left lower extremity deep vein thrombosis. Valvular competence appears intact within the proximal deep venous system on the left . The left great saphenous vein appears patent and compressible segmentally. Ordering Physician: Tobi Aggarwal Performed By: Dougie Valiente RVT
== END ==
PROVIDERS: PCP Family Medicine Geriatric Medicine; Referring Provider Internal Medicine Pulmonary Disease; Visit Provider Internal Medicine Pulmonary Disease
DX: M79.605 Pain in left leg (principal); R60.9 Edema, unspecified
CPT/HCPCS: 93971

== ENCOUNTER → 2020-02-27 13:53 | Outpatient (CLI) | payer MEDICARE, SELFPAY ==
[2019-07-07 16:21] VITALS: BMI 31.7
--- NOTE | 2020-02-27 14:05 | RAD_ITS ---
HISTORY: LOW BACK PAIN, NKI ADDITIONAL HISTORY: None provided. EXAMINATION/TECHNIQUE: XR Spine Lumbar 2 or 3 Views Number of images including paperwork: 3 COMPARISON: None FINDINGS: VERTEBRAE: No acute fracture. VERTEBRAL ALIGNMENT: No traumatic subluxation. 4 mm of anterolisthesis of L5 on S1. DISKS AND JOINTS: Moderate to severe disc space narrowing at L5-S1 with vacuum disc phenomenon. Facet arthropathy. SOFT TISSUES: Vascular calcifications. RAD/Lumbar Spine 2 or 3 Views IMPRESSION: No acute osseous abnormality. Degenerative changes. at 0206 Reported and signed by: Richa Shah MD Electronically Signed: Richa Shah MD at 2:06 EST Tel , Service support ,
== END ==
PROVIDERS: PCP Family Medicine Geriatric Medicine; Referring Provider Family Medicine Geriatric Medicine; Visit Provider Family Medicine Geriatric Medicine
DX: M54.5 Low back pain (principal)
CPT/HCPCS: 72100

== ENCOUNTER → 2020-02-29 14:10 | Outpatient (CLI) | payer MEDICARE, SELFPAY ==
[2019-07-07 16:21] VITALS: BMI 31.7
[2020-02-29 17:58] LABS: Absolute Lymphocyte Count 1.59 X10^3/uL (0.83-4.51); Absolute Neutrophil Count 8.8 X10^3/uL (2.0-7.7); Basophil# 0.03 X10^3/uL; Basophil% 0.3 % (0-1); Eosinophil# 0.19 X10^3/uL; Eosinophils% 1.7 % (0-5); Hematocrit 42.5 % (37-47); Hemoglobin 12.9 g/dL (12.0-15.0); Lymphocyte # 1.59 X10^3/ul (4.0); Lymphocyte % 13.8 % (19-41); Mean Corp Hgb Conc 30.4 g/dL (32-36); Mean Corpuscular Hgb 27.8 pg (27.0-32.0); Mean Corpuscular Volume 91.6 fL (81-99); Monocyte# 0.77 X10^3/uL; Monocyte% 6.7 % (0-10); NRBC Flagged by Analyzer 0 % (0-5); Neutrophil # 8.83 X10^3/uL (2.7-7.7); Neutrophil % 76.8 % (47-70); Platelet Count 296 K/mm3 (150-450); RBC Distribution Width CV 15.6 % (11.6-14.6); RBC Distribution Width SD 52.6 fl (35.1-43.9); Red Blood Count 4.64 M/mm3 (4.2-5.4); White Blood Count 11.5 K/mm3 (4.4-11.0)
[2020-02-29 18:13] LABS: Vitamin D,25 Hydroxy 32.1 ng/mL
[2020-02-29 18:28] LABS: ALB/GLOB Ratio 0.9 RATIO (0.9-2.4); AST(SGOT) 33 U/L (15-37); Alanine Aminotransfer ALT/SGPT 44 U/L (13-56); Albumin, Serum 3.4 g/dL (3.2-5.0); Alkaline Phosphatase 130 U/L (45-117); Anion Gap 6 (5-15); BUN 10 mg/dL (7-18); BUN/Creat Ratio 11.3 RATIO (10-20); Calcium,Total 8.5 mg/dL (8.5-10.1); Chloride 105 mmol/L (98-107); Cholesterol 104 mg/dL (200); Creatinine, Serum 0.88 mg/dL (0.55-1.02); EST Glomerular Filtration Rate 67 mL/min (>60); Est Glom Filt Rate - Afr Amer 81 mL/min (>60); Globulin 3.6 g/dL (2.2-4.2); Glucose 115 mg/dL (74-106); High Density Lipoprotein 34 mg/dL; Potassium 3.6 mmol/L (3.5-5.1); Sodium Level 142 mmol/L (136-145); Thyroid Stim Hormone (TSH) 4.87 uIU/mL (0.358-3.74); Triglycerides 117 mg/dL; Very Low Density Lipoprotein 23 mg/dL (5-40)
== END ==
PROVIDERS: PCP Family Medicine Geriatric Medicine; Visit Provider Family Medicine Geriatric Medicine
DX: E55.9 Vitamin D deficiency, unspecified (principal); E78.5 Hyperlipidemia, unspecified; I10 Essential (primary) hypertension
CPT/HCPCS: 36415; 80053; 80061; 82306; 84443; 85025

== ENCOUNTER → 2020-04-18 13:36 | Outpatient (CLI) | payer MEDICARE, SELFPAY ==
[2019-07-07 16:21] VITALS: BMI 31.7
[2020-04-18 15:46] LABS: Thyroid Stim Hormone (TSH) 1.49 uIU/mL (0.358-3.74)
== END ==
PROVIDERS: PCP Family Medicine Geriatric Medicine; Visit Provider Family Medicine Geriatric Medicine
DX: E03.9 Hypothyroidism, unspecified (principal)
CPT/HCPCS: 36415; 84443

== ENCOUNTER 2020-05-01 13:58 | Outpatient (RCR) | payer MEDICARE, SELFPAY ==
[2019-07-07 16:21] VITALS: BMI 31.7
[2020-05-01 17:07] LABS: AST(SGOT) 21 U/L (15-37); Alanine Aminotransfer ALT/SGPT 24 U/L (13-56); Albumin, Serum 3.2 g/dL (3.2-5.0); Alkaline Phosphatase 115 U/L (45-117); Bilirubin, Direct 0.15 mg/dL (0.00-0.30); Globulin 3.3 g/dL (2.2-4.2); Protein, Total 6.5 g/dL (6.4-8.2)
== END 2020-05-01 18:00 | disposition home or self-care (01) ==
LOC: MTLAB 13:58
PROVIDERS: PCP Family Medicine Geriatric Medicine; Referring Provider Internal Medicine Pulmonary Disease; Visit Provider Internal Medicine Pulmonary Disease
DX: J84.10 Pulmonary fibrosis, unspecified (principal)
CPT/HCPCS: 36415; 80076

== ENCOUNTER → 2020-05-14 16:14 | Outpatient (CLI) | payer MEDICARE, SELFPAY ==
[2019-07-07 16:21] VITALS: BMI 31.7
--- NOTE | 2020-05-14 16:24 | RAD_ITS ---
STUDY: X-RAY - LUMBAR SPINE REASON FOR EXAM: Female, 70 years old. BACK PAIN EVER SINCE MOVING FURNITURE 5 DAYS AGO. TECHNIQUE: 2 view(s) of the lumbar spine were obtained. COMPARISON: 02/27/2020 FINDINGS: Normal lumbar lordosis. Mild dextroscoliosis. 5 mm of anterolisthesis of L5 on S1 which is unchanged. Rudimentary disc at S1/S2. Normal vertebral bodies and endplates. Normal disc space heights. The soft tissue structures are unremarkable. RAD/Lumbar Spine 2 or 3 Views IMPRESSION: Mild dextroscoliosis with 5 mm of anterolisthesis of L5 on S1 similar to the prior study. Electronically Signed: Justino Rosenberg MD at 16:36 EST Tel , Service support ,
== END ==
PROVIDERS: PCP Family Medicine Geriatric Medicine; Referring Provider Family Medicine Geriatric Medicine; Visit Provider Family Medicine Geriatric Medicine
DX: M54.5 Low back pain (principal)
CPT/HCPCS: 72100

== ENCOUNTER → 2020-05-30 14:05 | Outpatient (CLI) | payer MEDICARE, SELFPAY ==
[2019-07-07 16:21] VITALS: BMI 31.7
[2020-05-30 17:23] LABS: Absolute Neutrophil Count 6.1 X10^3/uL (2.0-7.7); Basophil# 0.01 X10^3/uL; Basophil% 0.1 % (0-1); Eosinophil# 0.26 X10^3/uL; Eosinophils% 2.9 % (0-5); Hemoglobin 12.5 g/dL (12.0-15.0); Lymphocyte % 21.3 % (19-41); Mean Corp Hgb Conc 30.5 g/dL (32-36); Mean Corpuscular Hgb 28.4 pg (27.0-32.0); Mean Corpuscular Volume 93.2 fL (81-99); Mean Platelet Vol. 10.3 fl (6.2-12.0); Monocyte# 0.63 X10^3/uL; Monocyte% 7.1 % (0-10); NRBC Flagged by Analyzer 0 % (0-5); Neutrophil # 6.08 X10^3/uL (2.7-7.7); Platelet Count 256 K/mm3 (150-450); RBC Distribution Width CV 15.7 % (11.6-14.6); RBC Distribution Width SD 53.4 fl (35.1-43.9); White Blood Count 8.9 K/mm3 (4.4-11.0)
[2020-05-30 17:33] LABS: Vitamin D,25 Hydroxy 28.5 ng/mL
[2020-05-30 17:47] LABS: AST(SGOT) 15 U/L (15-37); Alanine Aminotransfer ALT/SGPT 24 U/L (13-56); Albumin, Serum 3.2 g/dL (3.2-5.0); Alkaline Phosphatase 119 U/L (45-117); Anion Gap 3 (5-15); BUN 9 mg/dL (7-18); BUN/Creat Ratio 10.1 RATIO (10-20); Calcium,Total 8.6 mg/dL (8.5-10.1); Chloride 108 mmol/L (98-107); Cholesterol 123 mg/dL (200); EST Glomerular Filtration Rate 66 mL/min (>60); Est Glom Filt Rate - Afr Amer 80 mL/min (>60); Globulin 3.3 g/dL (2.2-4.2); Glucose 84 mg/dL (74-106); High Density Lipoprotein 52 mg/dL; Potassium 3.9 mmol/L (3.5-5.1); Protein, Total 6.5 g/dL (6.4-8.2); Sodium Level 142 mmol/L (136-145); Thyroid Stim Hormone (TSH) 1.76 uIU/mL (0.358-3.74); Triglycerides 59 mg/dL; Very Low Density Lipoprotein 12 mg/dL (5-40)
== END ==
PROVIDERS: PCP Family Medicine Geriatric Medicine; Visit Provider Family Medicine Geriatric Medicine
DX: E55.9 Vitamin D deficiency, unspecified (principal); E78.5 Hyperlipidemia, unspecified; I10 Essential (primary) hypertension
CPT/HCPCS: 36415; 80053; 80061; 82306; 84443; 85025

== ENCOUNTER 2020-06-13 16:13 | Outpatient (RCR) | payer MEDICARE, SELFPAY ==
[2019-07-07 16:21] VITALS: BMI 31.7
== END 2020-06-13 23:59 ==
LOC: IMMUN 16:13
PROVIDERS: PCP Family Medicine Geriatric Medicine; Visit Provider Family Medicine
DX: Z23 Encounter for immunization (principal)
CPT/HCPCS: 0011A; 0012A; 91301

== ENCOUNTER → 2020-09-05 10:50 | Outpatient (CLI) | payer MEDICARE, SELFPAY ==
[2019-07-07 16:21] VITALS: BMI 31.7
[2020-09-05 12:45] LABS: Absolute Lymphocyte Count 1.64 X10^3/uL (0.83-4.51); Absolute Neutrophil Count 6.4 X10^3/uL (2.0-7.7); Basophil# 0.03 X10^3/uL; Basophil% 0.3 % (0-1); Eosinophils% 3.3 % (0-5); Hematocrit 39.7 % (37-47); Hemoglobin 12.7 g/dL (12.0-15.0); Lymphocyte # 1.64 X10^3/ul (0.83-4.51); Mean Corpuscular Hgb 29.1 pg (27.0-32.0); Mean Corpuscular Volume 91.1 fL (81-99); Mean Platelet Vol. 10.2 fl (6.2-12.0); Monocyte# 0.67 X10^3/uL; Monocyte% 7.3 % (0-10); NRBC Flagged by Analyzer 0 % (0-5); Neutrophil # 6.42 X10^3/uL (2.7-7.7); Neutrophil % 70.4 % (47-70); Platelet Count 277 K/mm3 (150-450); RBC Distribution Width CV 14.8 % (11.6-14.6); RBC Distribution Width SD 50.3 fl (35.1-43.9); Red Blood Count 4.36 M/mm3 (4.2-5.4); White Blood Count 9.1 K/mm3 (4.4-11.0)
[2020-09-05 13:03] LABS: Vitamin D,25 Hydroxy 29.3 ng/mL
[2020-09-05 13:27] LABS: ALB/GLOB Ratio 0.9 RATIO (0.9-2.4); AST(SGOT) 63 U/L (15-37); Alanine Aminotransfer ALT/SGPT 93 U/L (13-56); Albumin, Serum 3.2 g/dL (3.2-5.0); Alkaline Phosphatase 149 U/L (45-117); Anion Gap 6 (5-15); BUN 7 mg/dL (7-18); BUN/Creat Ratio 7.4 RATIO (10-20); Calcium,Total 8.7 mg/dL (8.5-10.1); Chloride 105 mmol/L (98-107); Cholesterol 113 mg/dL (200); Creatinine, Serum 0.94 mg/dL (0.55-1.02); EST Glomerular Filtration Rate 62 mL/min (>60); Est Glom Filt Rate - Afr Amer 75 mL/min (>60); Globulin 3.5 g/dL (2.2-4.2); Glucose 99 mg/dL (74-106); High Density Lipoprotein 42 mg/dL; Potassium 3.2 mmol/L (3.5-5.1); Protein, Total 6.7 g/dL (6.4-8.2); Sodium Level 143 mmol/L (136-145); Thyroid Stim Hormone (TSH) 2.08 uIU/mL (0.358-3.74); Triglycerides 71 mg/dL; Very Low Density Lipoprotein 14 mg/dL (5-40)
== END ==
PROVIDERS: PCP Family Medicine Geriatric Medicine; Visit Provider Family Medicine Geriatric Medicine
DX: E55.9 Vitamin D deficiency, unspecified (principal); E78.5 Hyperlipidemia, unspecified; I10 Essential (primary) hypertension
CPT/HCPCS: 36415; 80053; 80061; 82306; 84443; 85025

== ENCOUNTER → 2020-09-10 16:49 | Outpatient (CLI) | payer MEDICARE, SELFPAY ==
[2019-07-07 16:21] VITALS: BMI 31.7
[2020-09-10 18:30] LABS: ALB/GLOB Ratio 0.9 RATIO (0.9-2.4); AST(SGOT) 23 U/L (15-37); Alanine Aminotransfer ALT/SGPT 41 U/L (13-56); Albumin, Serum 3.3 g/dL (3.2-5.0); Alkaline Phosphatase 135 U/L (45-117); Anion Gap 4 (5-15); BUN 6 mg/dL (7-18); BUN/Creat Ratio 6.8 RATIO (10-20); Calcium,Total 8.9 mg/dL (8.5-10.1); Chloride 105 mmol/L (98-107); Creatinine, Serum 0.88 mg/dL (0.55-1.02); EST Glomerular Filtration Rate 67 mL/min (>60); Est Glom Filt Rate - Afr Amer 81 mL/min (>60); Globulin 3.6 g/dL (2.2-4.2); Glucose 90 mg/dL (74-106); Potassium 3.4 mmol/L (3.5-5.1); Protein, Total 6.9 g/dL (6.4-8.2); Sodium Level 142 mmol/L (136-145)
[2020-09-11 10:32] LABS: Hepatitis C Antibody Non-Reactive (Nonreactive)
== END ==
PROVIDERS: PCP Family Medicine Geriatric Medicine; Visit Provider Family Medicine Geriatric Medicine
DX: I10 Essential (primary) hypertension (principal); Z13.89 Encounter for screening for other disorder
CPT/HCPCS: 36415; 80053; 86803

== ENCOUNTER → 2020-09-12 07:34 | Outpatient (CLI) | payer MEDICARE, SELFPAY ==
[2019-07-07 16:21] VITALS: BMI 31.7
--- NOTE | 2020-09-12 07:36 | US_ITS ---
STUDY: ABDOMINAL ULTRASOUND - RIGHT UPPER QUADRANT REASON FOR VISIT: Female, 70 years old ABNORMAL LEVELS OF OTHER SERUM ENZYMES TECHNIQUE: Ultrasound evaluation of the right upper quadrant was performed with real-time and static redmond-scale imaging. TECHNICAL QUALITY: Adequate. COMPARISON: None. FINDINGS: Liver: The liver measures 13.1 cm. There is increased echogenicity consistent with fatty infiltration. The bile ducts are within normal limits. There is hepatic color flow. The direction of portal flow is hepatopetal. There is no demonstrated mass lesion. Gallbladder: Normal distended gallbladder. The gallbladder wall is slightly thickened and measures 3.9 mm. There is a negative sonographic Monterroso''s sign. There is no pericholecystic fluid. There are no gallstones. Common Bile Duct (C.B.D.): The common bile duct measures 4 mm. Pancreas: Normal size of the head, body and tail of the pancreas. There is normal echogenicity of the pancreas. There is a 1.5 cm x 1.7 cm x 1.9 cm cyst in the body of the pancreas. Right Kidney: Normal size of the right kidney. The right kidney measures 9.2 cm x 5.1 cm x 4.4 cm. Normal renal cortex. The right cortex measures 1.5 cm. There is no demonstrated renal mass or cyst. There is no right hydronephrosis. US/Abdomen Limited IMPRESSION: Mild degree of fatty infiltration of the liver. Minimally thickened gallbladder wall. 1.5 cm x 1.7 cm x 1.9 cm cyst in the body of the pancreas. Electronically Signed: Faoroq Bautista MD at 10:48 EDT , Service support ,
== END ==
PROVIDERS: PCP Family Medicine Geriatric Medicine; Referring Provider Family Medicine Geriatric Medicine; Visit Provider Family Medicine Geriatric Medicine
DX: R74.8 Abnormal levels of other serum enzymes (principal)
CPT/HCPCS: 76705

== ENCOUNTER → 2020-09-18 14:39 | Outpatient (CLI) | payer MEDICARE, SELFPAY ==
[2019-07-07 16:21] VITALS: BMI 31.7
[2020-09-18 16:41] LABS: Anion Gap 5 (5-15); BUN 6 mg/dL (7-18); BUN/Creat Ratio 7.9 RATIO (10-20); Calcium,Total 8.5 mg/dL (8.5-10.1); Chloride 107 mmol/L (98-107); Creatinine, Serum 0.76 mg/dL (0.55-1.02); EST Glomerular Filtration Rate 80 mL/min (>60); Est Glom Filt Rate - Afr Amer 97 mL/min (>60); Glucose 92 mg/dL (74-106); Sodium Level 143 mmol/L (136-145)
== END ==
PROVIDERS: PCP Family Medicine Geriatric Medicine; Visit Provider Family Medicine Geriatric Medicine
DX: E87.6 Hypokalemia (principal)
CPT/HCPCS: 36415; 80048

== ENCOUNTER → 2020-10-12 15:17 | Outpatient (CLI) | payer MEDICARE, SELFPAY ==
[2019-07-07 16:21] VITALS: BMI 31.7
[2020-10-12 17:40] LABS: CRP 4.16 mg/L (0.0-3.0)
[2020-10-15 14:08] LABS: Endomysial Antibody IgA Negative (Negative)
[2020-10-18 15:11] LABS: Immunoglobulin A 116 mg/dL (64-422); t-Transglutaminase IgA <2 U/mL (0-3)
== END ==
PROVIDERS: PCP Family Medicine Geriatric Medicine; Referring Provider Internal Medicine Gastroenterology; Visit Provider Internal Medicine Gastroenterology
DX: R19.7 Diarrhea, unspecified (principal)
CPT/HCPCS: 36415; 82784; 83516; 86140; 86255

== ENCOUNTER 2020-10-18 12:44 | Outpatient (RCR) | payer MEDICARE, SELFPAY ==
[2019-07-07 16:21] VITALS: BMI 31.7
[2020-10-18 15:23] LABS: AST(SGOT) 74 U/L (15-37); Alanine Aminotransfer ALT/SGPT 69 U/L (13-56); Albumin, Serum 3.4 g/dL (3.2-5.0); Alkaline Phosphatase 160 U/L (45-117); Bilirubin, Direct 0.18 mg/dL (0.00-0.30); Globulin 3.3 g/dL (2.2-4.2); Protein, Total 6.7 g/dL (6.4-8.2)
== END 2020-10-18 18:00 | disposition home or self-care (01) ==
LOC: MTLAB 12:44
PROVIDERS: PCP Family Medicine Geriatric Medicine; Referring Provider Internal Medicine Pulmonary Disease; Visit Provider Internal Medicine Pulmonary Disease
DX: J84.10 Pulmonary fibrosis, unspecified (principal); Z79.899 Other long term (current) drug therapy
CPT/HCPCS: 36415; 80076

== ENCOUNTER 2020-10-22 04:58 | Emergency (ER) | payer MEDICARE, SELFPAY ==
[2019-07-07 16:21] VITALS: BMI 31.7
[2020-10-22] VITALS (7 sets, daily range): BP systolic 135–178; BP diastolic 65–93; PULSE 65–88; RESP 15–19; TEMP 36.4; O2SAT 93–99; BMI 29.6
--- NOTE | 2020-10-22 05:26 | EKG12_ITS ---
Test Reason : DYSRHYTHMIA Blood Pressure : / mmHG Vent. Rate : 070 BPM Atrial Rate : 070 BPM P-R Int : 144 ms QRS Dur : 080 ms QT Int : 422 ms P-R-T Axes : 039 -33 -11 degrees QTc Int : 455 ms Normal sinus rhythm Left axis deviation Low voltage QRS Poor R- wave progression Abnormal ECG Confirmed by LACHO HERRING, PATRICA ([id number]), offline editor MARY SIDDIQUI ([id number]) on 10/24/2020 1:51:02 PM Referred By: SHELLEY Confirmed By:PATRICA MONK MD
--- NOTE | 2020-10-22 05:28 | ED.VIS.DYS ---
HPI History of Present Illness Chief Complaint: Shortness of Breath Informant: patient Onset/Context/Timing Onset: Days (4) Context: gradual Timing: Continuous and Waxes and wanes Worsened by: other (Movement) Relieved by: Nothing Narrative Narrative: Patient presents with shortness of breath that has been getting worse over the past 4 days. Patient states it is gradually getting worse. Patient states her breathing has been waxing and waning over the past 4 days. Patient states her breathing is worse with certain movements. Patient states nothing seems to make her breathing better. Patient states it feels like a collapsed lung. Patient states she has pain over her right chest. Patient denies any fevers or chills. Patient admits to nausea but denies any vomiting. Patient states the pain radiates into her back. [facility] Medical History (Updated 10/25/20 @ 15:[address] Robert Merritt DO) Fatigue HTN (hypertension) IPF (idiopathic pulmonary fibrosis) Home Medications aspirin 81 mg PO QHS 10/02/16 [History Last Taken 01/16/17] amlodipine 5 mg PO DAILY 01/17/17 [History Last Taken 01/17/17] escitalopram oxalate 10 mg tablet 10 mg PO QHS 30 Days #30 06/22/17 [History Last Taken Unknown] pramipexole 0.125 mg tablet 0.25 mg PO QHS 05/05/18 [History Last Taken Unknown] atorvastatin 20 mg PO QHS #30 tab 11/30/18 [Rx Last Taken Unknown] levothyroxine 25 mcg PO DAILY 10/22/20 [History Last Taken Unknown] Allergy/AdvReac Type Severity Reaction Status Date / Time No Known Allergies Allergy Verified 10/22/20 05:02 Social History Smoking Status: Former smoker alcohol intake: never ROS ROS ED Constitutional Constitutional ED: Denies chills or fever(s) Eyes Eyes: Denies blurry vision or change in vision ENT ENT ED: Denies rhinorrhea or sore throat Cardiovascular Cardiovascular: Reports chest pain; Denies palpitations Respiratory/Chest Respiratory/Chest: Reports dyspnea; Denies cough Gastrointestinal Gastrointestinal: Reports nausea; Denies vomiting Genitourinary Genitourinary ED: Denies dysuria or hematuria Musculoskeletal Musculoskeletal: Reports back pain; Denies neck pain Integumentary Denies abscess or rash Neurologic Neurologic: Denies headache(s) or weakness Allergic/Immunologic Allergic/Immunologic ED: Denies mouth swelling or urticaria EXAM Physical Exam Const Vital Signs: 10/22/20 04:58 10/22/20 05:02 10/22/20 05:06 Temperature 97.5 F L 97.5 F L Temperature Source Oral Oral Pulse Rate 88 88 Respiratory Rate 19 H 19 H Respiratory Effort Normal Blood Pressure 178/93 H 178/93 H Blood Pressure Mean 121 121 Pulse Ox 93 93 Oxygen Delivery Method Room Air Room Air Room Air 10/22/20 05:37 10/22/20 06:06 10/22/20 07:18 Temperature 97.6 F L Temperature Source Temporal Pulse Rate 65 72 Respiratory Rate 15 16 Respiratory Effort Blood Pressure 159/65 H 146/80 H Blood Pressure Mean 96 102 Pulse Ox 99 96 95 Oxygen Delivery Method Room Air Room Air Positive well nourished and well developed General Appearance ED: well developed HEENT Reports moist mucous membranes Neck supple and no JVD Resp normal respiratory effort Auscultation: rales bilateral lower Cardio regular rate, regular rhythm and no murmurs GI normal to inspection, nondistended, normoactive bowel sounds and non-tender Palpation: soft Extremity normal to inspection General Extremety ED: Negative for edema or tenderness General Extremity: Negative for edema Neuro oriented x3, CN's II-XII intact bilaterally and no sensory deficits noted Sensorium / Orientation: alert Motor Exam: strength 5/5 throughout Psych mental status grossly normal Skin no rashes or lesions noted MDM MDM MDM Narrative Medical decision making narrative: Portable 1 view chest x-ray was obtained. On my interpretation, lung white are clear. There is mild cardiomegaly. Bony thorax is normal. There is no acute process noted. Radiologist also interpreted the x-ray and agrees. EKG was obtained. On my interpretation, it showed a normal sinus rhythm with a rate of 70. IL interval, QRS interval, and QTc intervals were all normal. There is left axis deviation. There are no acute ST or T wave changes. CBC and comprehensive metabolic profile were within normal limits. High-sensitivity troponin was 5.3. BNP is ordered and is pending. Delta troponin was ordered and is 6.7. Patient has a HEART score of 3. Patient was advised that this is low risk for acute cardiac event. Patient was instructed to take Tylenol or ibuprofen as needed for pain. Patient was instructed to follow-up with her primary care physician in 5 to 7 days. Patient was instructed to return if worse in any way. Patient understood and was agreeable with the plan. All questions were answered. Lab Data Attestation: I reviewed the patient's lab results. Labs: Laboratory Results - last 24 hr 10/22/20 10/22/20 10/22/20 05:10 05:10 07:16 WBC 7.3 RBC 4.48 Hgb 12.8 Hct 41.4 MCV 92.4 MCH 28.6 MCHC 30.9 L RDW Std Deviation 51.5 H RDW Coeff of Josesito 15.0 H Plt Count 259 MPV 9.4 Immature Gran % (Auto) 0.500 Neut % (Auto) 58.1 Lymph % (Auto) 28.0 [place] % (Auto) 7.8 Eos % (Auto) 5.2 H Baso % (Auto) 0.4 Absolute Neuts (auto) 4.3 Absolute Lymphs (auto) 2.05 Nucleated RBC % 0 Sodium 142 Potassium 4.0 Chloride 105 Carbon Dioxide 31.0 Anion Gap 6 BUN 7 Creatinine 0.73 Estim Creat Clear Calc 40.22 Est GFR (MDRD) Af Amer 101 Est GFR (MDRD) Non-Af 84 BUN/Creatinine Ratio 9.6 L Glucose 100 Calcium 8.9 Total Bilirubin 0.40 AST 19 ALT 37 Alkaline Phosphatase 148 H Troponin I High Sens 5.3 6.7 Total Protein 6.9 Albumin 3.3 Globulin 3.6 Albumin/Globulin Ratio 0.9 Radiography Diagnostic Testing: Radiology Impression Chest X-Ray 10/22/20 05:40 IMPRESSION: No evidence of acute cardiopulmonary process. Mild cardiomegaly. at 0618 Reported and signed by: Jose Rene MD Electronically Signed: Jose Rene MD at 6:16 EDT Tel , Service support , EKG Initial EKG: Attestation: I personally reviewed and interpreted this EKG as follows: Interpretation: Sinus Rhythm (70) and No Acute Injury Pattern Prior EKG tracings: available for review Prior: Unchanged Discharge Plan Triage Chief Complaint: Shortness of Breath ED Provider: Robert Merritt Dx/Rx/DC Orders Clinical Impression: Chest pain of uncertain etiology Instructions: ED Chest Pain, Uncertain Cause, ED Pleurisy Prescriptions: No Action escitalopram oxalate 10 mg tablet 10 mg PO QHS 30 Days Qty: 30 RF: 0 pramipexole 0.125 mg tablet 0.25 mg PO QHS RF: 0 aspirin 81 MG tablet 81 mg PO QHS RF: 0 amlodipine 5 MG tablet 5 mg PO DAILY RF: 0 atorvastatin 20 MG tablet 20 mg PO QHS Qty: 30 RF: 0 levothyroxine 25 mcg tablet 25 mcg PO DAILY RF: 0 Primary Care Provider: Ernesto Hensley Chi Referrals: Ernesto Hensley Chi, MD [Primary Care Provider] - 5-7 Days Disposition Disposition: Home, Self Care Discharge Date/Time: 10/22/20 08:00
[2020-10-22 05:32] LABS: Absolute Lymphocyte Count 2.05 X10^3/uL (0.83-4.51); Absolute Neutrophil Count 4.3 X10^3/uL (2.0-7.7); Basophil# 0.03 X10^3/uL; Basophil% 0.4 % (0-1); Eosinophil# 0.38 X10^3/uL; Eosinophils% 5.2 % (0-5); Hematocrit 41.4 % (37-47); Hemoglobin 12.8 g/dL (12.0-15.0); Lymphocyte # 2.05 X10^3/ul (0.83-4.51); Mean Corp Hgb Conc 30.9 g/dL (32-36); Mean Corpuscular Hgb 28.6 pg (27.0-32.0); Mean Corpuscular Volume 92.4 fL (81-99); Mean Platelet Vol. 9.4 fl (6.2-12.0); Monocyte# 0.57 X10^3/uL; Monocyte% 7.8 % (0-10); NRBC Flagged by Analyzer 0 % (0-5); Neutrophil # 4.25 X10^3/uL (2.7-7.7); Neutrophil % 58.1 % (47-70); Platelet Count 259 K/mm3 (150-450); RBC Distribution Width SD 51.5 fl (35.1-43.9); Red Blood Count 4.48 M/mm3 (4.2-5.4); White Blood Count 7.3 K/mm3 (4.4-11.0)
--- NOTE | 2020-10-22 05:40 | RAD_ITS ---
HISTORY: Shortness of breath EXAMINATION/TECHNIQUE: XR Chest 1 View: COMPARISON: 06/02/2019 FINDINGS: LINES/DEVICES: None. LUNGS: No airspace consolidation. Unremarkable interstitium. No effusion. No pneumothorax. MEDIASTINUM: Mild cardiomegaly. MUSCULOSKELETAL: No acute osseous finding. RAD/Chest 1 View (Portable) IMPRESSION: No evidence of acute cardiopulmonary process. Mild cardiomegaly. at 0618 Reported and signed by: Jose Rene MD Electronically Signed: Jose Rene MD at 6:16 EDT Tel , Service support ,
[2020-10-22] MEDS: Morphine 4 MG/ML Syringe IV (05:45)
[2020-10-22 05:48] LABS: ALB/GLOB Ratio 0.9 RATIO (0.9-2.4); AST(SGOT) 19 U/L (15-37); Alanine Aminotransfer ALT/SGPT 37 U/L (13-56); Albumin, Serum 3.3 g/dL (3.2-5.0); Alkaline Phosphatase 148 U/L (45-117); Anion Gap 6 (5-15); BUN 7 mg/dL (7-18); BUN/Creat Ratio 9.6 RATIO (10-20); Calcium,Total 8.9 mg/dL (8.5-10.1); Chloride 105 mmol/L (98-107); Creatinine, Serum 0.73 mg/dL (0.55-1.02); EST Glomerular Filtration Rate 84 mL/min (>60); Est Glom Filt Rate - Afr Amer 101 mL/min (>60); Estimated Creatinine Clearance 40.22 ml/min; Globulin 3.6 g/dL (2.2-4.2); Glucose 100 mg/dL (74-106); Protein, Total 6.9 g/dL (6.4-8.2); Sodium Level 142 mmol/L (136-145); Troponin-I HS 5.3 pg/mL (3.0-53.7)
[2020-10-22] MEDS: Ondansetron 4 MG/2 ML Vial IV (05:57)
[2020-10-22 07:39] LABS: Troponin-I HS 6.7 pg/mL (3.0-53.7)
[2020-10-22 08:47] LABS: BNP,B-Type NATRIURETIC PEPTIDE 18.9 pg/mL (0-100)
== END 2020-10-22 08:00 | disposition home or self-care (01) ==
PROVIDERS: Emergency Provider Emergency Medicine; PCP Family Medicine Geriatric Medicine
DX: R07.9 Chest pain, unspecified (principal); R06.02 Shortness of breath; R11.0 Nausea; I10 Essential (primary) hypertension; Z79.82 Long term (current) use of aspirin; Z87.891 Personal history of nicotine dependence; Z79.899 Other long term (current) drug therapy
CPT/HCPCS: 71045; 80053; 83880; 84484; 85025; 87426; 93005; 96374; 96375; 99285; A4216; J2405

== ENCOUNTER → 2020-10-31 09:47 | Outpatient (CLI) | payer MEDICARE, SELFPAY ==
[2019-07-07 16:21] VITALS: BMI 31.7
[2020-10-22 04:58] VITALS: BMI 29.6
--- NOTE | 2020-10-31 10:00 | US_ITS ---
STUDY: ABDOMINAL ULTRASOUND - ELASTOGRAPHY REASON FOR VISIT: Female, 70 years old. Fatty infiltration of the liver. TECHNIQUE: Liver stiffness measurements were obtained on a Tresata RS 85 ultrasound machine using a CA 1-7 probe following the SRU guidelines. 3 measurements were obtained using a 2-D-SWE method. The IQR/M was 13% suggesting a quality data set. TECHNICAL QUALITY: Adequate. COMPARISON: Comparison is made with prior study dated 09/12/2020. FINDINGS: Liver: Fatty infiltration of the liver. Median liver stiffness measured 5.5 kPa. US/Elastography Parenchyma/Organ IMPRESSION: Liver stiffness measures 5.5 kPa compatible with F1 Metavir score. Electronically Signed: Farooq Bautista MD at 12:57 EDT , Service support ,
== END ==
PROVIDERS: PCP Family Medicine Geriatric Medicine; Referring Provider Family Medicine Geriatric Medicine; Visit Provider Family Medicine Geriatric Medicine
DX: K76.0 Fatty (change of) liver, not elsewhere classified (principal)
CPT/HCPCS: 76981

== ENCOUNTER 2020-12-12 11:48 | Outpatient (RCR) | payer MEDICARE, SELFPAY ==
[2020-10-22 04:58] VITALS: BMI 29.6
[2020-12-12 15:09] LABS: AST(SGOT) 14 U/L (15-37); Alanine Aminotransfer ALT/SGPT 25 U/L (13-56); Albumin, Serum 3.3 g/dL (3.2-5.0); Alkaline Phosphatase 108 U/L (45-117); Bilirubin, Direct 0.12 mg/dL (0.00-0.30); Globulin 3.5 g/dL (2.2-4.2); Protein, Total 6.8 g/dL (6.4-8.2)
== END 2020-12-12 18:00 | disposition home or self-care (01) ==
LOC: MTLAB 11:48
PROVIDERS: PCP Family Medicine Geriatric Medicine; Referring Provider Internal Medicine Pulmonary Disease; Visit Provider Internal Medicine Pulmonary Disease
DX: J84.10 Pulmonary fibrosis, unspecified (principal); Z79.899 Other long term (current) drug therapy
CPT/HCPCS: 36415; 80076

== ENCOUNTER → 2020-12-25 14:42 | Outpatient (CLI) | payer MEDICARE, SELFPAY ==
[2020-12-25 15:35] LABS: Absolute Lymphocyte Count 1.78 X10^3/uL (0.83-4.51); Absolute Neutrophil Count 5.8 X10^3/uL (2.0-7.7); Basophil# 0.02 X10^3/uL; Basophil% 0.2 % (0-1); Eosinophil# 0.35 X10^3/uL; Hematocrit 40.4 % (37-47); Hemoglobin 12.7 g/dL (12.0-15.0); Lymphocyte # 1.78 X10^3/ul (0.83-4.51); Lymphocyte % 20.6 % (19-41); Mean Corp Hgb Conc 31.4 g/dL (32-36); Mean Corpuscular Hgb 28.9 pg (27.0-32.0); Mean Platelet Vol. 9.7 fl (6.2-12.0); Monocyte# 0.68 X10^3/uL; Monocyte% 7.9 % (0-10); NRBC Flagged by Analyzer 0 % (0-5); Neutrophil # 5.78 X10^3/uL (2.7-7.7); Neutrophil % 66.7 % (47-70); Platelet Count 282 K/mm3 (150-450); RBC Distribution Width CV 15.4 % (11.6-14.6); RBC Distribution Width SD 51.8 fl (35.1-43.9); Red Blood Count 4.39 M/mm3 (4.2-5.4); White Blood Count 8.7 K/mm3 (4.4-11.0)
[2020-12-25 16:06] LABS: ALB/GLOB Ratio 0.9 RATIO (0.9-2.4); AST(SGOT) 18 U/L (15-37); Alanine Aminotransfer ALT/SGPT 24 U/L (13-56); Albumin, Serum 3.4 g/dL (3.2-5.0); Alkaline Phosphatase 119 U/L (45-117); Anion Gap 4 (5-15); BUN 14 mg/dL (7-18); BUN/Creat Ratio 15.7 RATIO (10-20); Calcium,Total 9.1 mg/dL (8.5-10.1); Chloride 111 mmol/L (98-107); Creatinine, Serum 0.89 mg/dL (0.55-1.02); EST Glomerular Filtration Rate 66 mL/min (>60); Est Glom Filt Rate - Afr Amer 80 mL/min (>60); Globulin 3.7 g/dL (2.2-4.2); Glucose 82 mg/dL (74-106); Protein, Total 7.1 g/dL (6.4-8.2); Sodium Level 143 mmol/L (136-145)
== END ==
PROVIDERS: PCP Family Medicine Geriatric Medicine; Referring Provider Family Medicine Geriatric Medicine; Visit Provider Family Medicine Geriatric Medicine
DX: D69.2 Other nonthrombocytopenic purpura (principal)
CPT/HCPCS: 36415; 80053; 85025

== ENCOUNTER → 2021-01-21 09:51 | Outpatient (CLI) | payer MEDICARE, SELFPAY ==
[2021-01-21 12:49] LABS: AST(SGOT) 15 U/L (15-37); Alanine Aminotransfer ALT/SGPT 22 U/L (13-56); Albumin, Serum 3.2 g/dL (3.2-5.0); Alkaline Phosphatase 135 U/L (45-117); Bilirubin, Direct 0.08 mg/dL (0.00-0.30); Globulin 3.6 g/dL (2.2-4.2); Protein, Total 6.8 g/dL (6.4-8.2)
== END ==
PROVIDERS: PCP Family Medicine Geriatric Medicine; Referring Provider Internal Medicine Pulmonary Disease; Visit Provider Internal Medicine Pulmonary Disease
DX: J84.112 Idiopathic pulmonary fibrosis (principal)
CPT/HCPCS: 36415; 80076

== ENCOUNTER → 2021-01-22 13:08 | Outpatient (CLI) | payer MEDICARE, SELFPAY ==
--- NOTE | 2021-01-22 13:19 | CT_ITS ---
STUDY: CT Chest W/O Contrast Injection 01/22/2021 3:53 PM REASON FOR EXAM: Female, 70 years old. PULMONARY FIBROSIS,BRONCHIECTASIS Individualized dose optimization techniques were used for this CT. TECHNIQUE: Transaxial imaging was performed withoutIV contrast material. COMPARISON: 10/29/2016 FINDINGS: There are degenerative changes of the shoulders. There is no pneumothorax. There is pleural fibrotic thickening of the pulmonary lung apices. There is pleural fibrotic thickening of the pulmonary lung bases and periphery. Mild lower lobe bronchiectasis. There are calcifications of the coronary arteries. Normal mediastinum. Normal hilar regions. Normal pulmonary arteries. There is atherosclerotic calcification of the aortic arch with tortuosity and elongation of the aortic arch and descending thoracic aorta. There are multi-level degenerative changes of the thoracic spine. There is an elevated right hemidiaphragm. CT/Chest without Contrast IMPRESSION: There is pulmonary fibrosis which has progressed since the prior study Mild lower lobe bronchiectasis. Electronically Signed: Ion Gomes MD at 15:56 EDT , Service support ,
== END ==
PROVIDERS: PCP Family Medicine Geriatric Medicine; Referring Provider Internal Medicine Pulmonary Disease; Visit Provider Internal Medicine Pulmonary Disease
DX: J84.112 Idiopathic pulmonary fibrosis (principal); J47.9 Bronchiectasis, uncomplicated
CPT/HCPCS: 71250

== ENCOUNTER → 2021-03-07 13:22 | Outpatient (CLI) | payer MEDICARE, SELFPAY ==
[2021-03-07 13:58] LABS: Absolute Lymphocyte Count 1.47 X10^3/uL (0.83-4.51); Absolute Neutrophil Count 4.4 X10^3/uL (2.0-7.7); Basophil# 0.04 X10^3/uL; Basophil% 0.6 % (0-1); Eosinophil# 0.44 X10^3/uL; Eosinophils% 6.3 % (0-5); Hematocrit 37.6 % (37-47); Hemoglobin 11.8 g/dL (12.0-15.0); Lymphocyte # 1.47 X10^3/ul (0.83-4.51); Lymphocyte % 21.2 % (19-41); Mean Corp Hgb Conc 31.4 g/dL (32-36); Mean Corpuscular Hgb 28.8 pg (27.0-32.0); Mean Corpuscular Volume 91.7 fL (81-99); Mean Platelet Vol. 9.4 fl (6.2-12.0); Monocyte# 0.61 X10^3/uL; Monocyte% 8.8 % (0-10); NRBC Flagged by Analyzer 0 % (0-5); Neutrophil # 4.36 X10^3/uL (2.7-7.7); Neutrophil % 62.7 % (47-70); Platelet Count 241 K/mm3 (150-450); RBC Distribution Width CV 14.4 % (11.6-14.6); RBC Distribution Width SD 48.6 fl (35.1-43.9)
[2021-03-07 14:15] LABS: Vitamin D,25 Hydroxy 26.7 ng/mL
[2021-03-07 14:22] LABS: ALB/GLOB Ratio 0.8 RATIO (0.9-2.4); AST(SGOT) 19 U/L (15-37); Alanine Aminotransfer ALT/SGPT 24 U/L (13-56); Albumin, Serum 3.1 g/dL (3.2-5.0); Alkaline Phosphatase 142 U/L (45-117); Anion Gap 3 (5-15); BUN 12 mg/dL (7-18); BUN/Creat Ratio 14.5 RATIO (10-20); Chloride 103 mmol/L (98-107); Cholesterol 151 mg/dL (200); Creatinine, Serum 0.82 mg/dL (0.55-1.02); EST Glomerular Filtration Rate 72 mL/min (>60); Est Glom Filt Rate - Afr Amer 87 mL/min (>60); Globulin 3.8 g/dL (2.2-4.2); Glucose 87 mg/dL (74-106); High Density Lipoprotein 43 mg/dL; Potassium 4.2 mmol/L (3.5-5.1); Protein, Total 6.9 g/dL (6.4-8.2); Sodium Level 141 mmol/L (136-145); Thyroid Stim Hormone (TSH) 1.57 uIU/mL (0.358-3.74); Triglycerides 133 mg/dL; Very Low Density Lipoprotein 27 mg/dL (5-40)
== END ==
PROVIDERS: PCP Family Medicine Geriatric Medicine; Visit Provider Family Medicine Geriatric Medicine
DX: E55.9 Vitamin D deficiency, unspecified (principal); E78.5 Hyperlipidemia, unspecified; I10 Essential (primary) hypertension
CPT/HCPCS: 36415; 80053; 80061; 82306; 84443; 85025

== ENCOUNTER → 2021-03-22 11:35 | Outpatient (CLI) | payer MEDICARE, SELFPAY ==
--- NOTE | 2021-03-22 11:38 | RAD_ITS ---
HISTORY: J84.112. Idiopathic pulmonary fibrosis. TECHNIQUE: XR Chest 2 Views. # of images incl. paperwork: 2. COMPARISON: 10/22/2020. FINDINGS: CARDIOMEDIASTINAL STRUCTURES: Cardiac silhouette not enlarged. Mediastinal contour unremarkable. LUNGS: Chronic peripheral reticular and interstitial opacities again seen. PLEURA: No pleural effusion or pneumothorax. OSSEOUS STRUCTURES: Degenerative change. RAD/Chest PA and Lateral IMPRESSION: No radiographic evidence of acute cardiopulmonary disease. Chronic interstitial lung disease. at 1019 Reported and signed by: Valencia Osman MD Electronically Signed: Valencia Osman MD at 10:18 EST Tel , Service support ,
== END ==
PROVIDERS: PCP Family Medicine Geriatric Medicine; Referring Provider Internal Medicine Pulmonary Disease; Visit Provider Internal Medicine Pulmonary Disease
DX: J84.112 Idiopathic pulmonary fibrosis (principal)
CPT/HCPCS: 71046

== ENCOUNTER 2021-04-16 00:31 | Emergency (ER) | payer MEDICARE, SELFPAY ==
[2021-04-16 00:34] VITALS: BP 181/69; PULSE 82; RESP 24; TEMP 37.2; O2SAT 100; BMI 30.2
[2021-04-16 00:42] VITALS: BP 181/69; PULSE 73; RESP 16; TEMP 37.2; O2SAT 99
--- NOTE | 2021-04-16 00:56 | RAD_ITS ---
STUDY: X-RAY CHEST REASON FOR EXAM: Female, 71 years old. Shortness of breath TECHNIQUE: Single AP portable view of the chest. COMPARISON: 03/22/2021 chest x-ray FINDINGS: The chronic appearing interstitial markings without definitive focal infiltrate. There is no demonstrated pleural abnormality. There is mild cardiac enlargement. Normal mediastinum and brennan. Normal visualized pulmonary arteries. There is atherosclerotic calcification of the aortic arch with tortuosity. Normal visualized thoracic spine. Normal visualized ribs, clavicles, and shoulders. There is no demonstrated abnormality of the visualized soft tissue structures of the upper abdomen. RAD/Chest 1 View (Portable) IMPRESSION: Chronic appearing lung markings. No definitive focal infiltrate. No demonstrated acute cardiopulmonary process. Electronically Signed: Lyric Lopez MD at 2:22 EST Tel , Service support ,
--- NOTE | 2021-04-16 00:56 | EKG12_ITS ---
Test Reason : SOB Blood Pressure : / mmHG Vent. Rate : 088 BPM Atrial Rate : 088 BPM P-R Int : 148 ms QRS Dur : 080 ms QT Int : 372 ms P-R-T Axes : 002 -32 012 degrees QTc Int : 450 ms Normal sinus rhythm Left axis deviation Abnormal ECG Confirmed by MADY HERRING, ELIZABETH ([id number]), food editor LIBORIO DAVIS ([id number]) on 04/18/2021 9:24:42 AM Referred By: PHILLY Confirmed By:ELIZABETH EARL MD
--- NOTE | 2021-04-16 00:58 | EDS_ITS ---
HPI History of Present Illness Chief Complaint: Shortness of Breath Narrative Narrative: Patient has past medical history of pulmonary fibrosis, wears 2 to 3 L of oxygen, presents with 2-day history of increasing shortness of breath. She states today she had a fever. She denies any dysuria or hematuria. She is concerned about Covid. She has had her immunizations against COVID-19. She states she had 30-40 people in her house. While she had a negative Covid test this morning, she has had to increase her oxygen usage and feels more short of breath. She is concerned about the fever. [facility] Medical History (Updated 04/16/21 @ 02:23 by Kodak Paz MD) Fatigue HTN (hypertension) IPF (idiopathic pulmonary fibrosis) Home Medications escitalopram oxalate 10 mg tablet 10 mg PO QHS 30 Days #30 06/22/17 [History Last Taken Unknown] pramipexole 0.125 mg tablet 1 mg PO QHS 05/05/18 [History Last Taken Unknown] levothyroxine 25 mcg PO DAILY 10/22/20 [History Last Taken Unknown] dexamethasone [Decadron] 6 mg PO DAILY #7 tab 04/16/21 [Rx Last Taken Unknown] nintedanib [Ofev] 150 mg PO BID 04/16/21 [History Last Taken Unknown] Allergy/AdvReac Type Severity Reaction Status Date / Time No Known Allergies Allergy Verified 10/22/20 05:02 Social History Smoking Status: Former smoker alcohol intake: never ROS ROS ED ROS Narrative Constitutional: No fever, no chills. HEENT: No sore throat. No neck pain. No loss of vision. No rhinorrhea. Cardiovascular: No chest pain. No palpitations. No pedal edema. Respiratory: Positive cough, positive shortness of breath. Abdominal: No abdominal pain. Positive nausea. 1 episode of vomiting. Genitourinary: No dysuria. No hematuria. Musculoskeletal: No myalgias. No arthralgias. Neurologic: No headaches. No dizziness. No lightheadedness. Skin: No rash. No change in color. Psychiatric: No depression. No anxiety. EXAM Physical Exam Narrative Exam Narrative: Afebrile. Vital signs noted. HEENT: Normocephalic. Atraumatic. PERRL, EOMI. Neck soft and supple. No point tenderness or step off. Cardiovascular: Regular rate and rhythm. No murmurs, rubs, or gallops appreciated. Respiratory: No tachypnea. Lungs clear to auscultation bilaterally. Diminished breath sounds bilateral bases. Gastrointestinal: Abdomen soft, nontender, with normoactive bowel sounds. No rebound or guarding. Neurological: Awake. Alert. Nonfocal, nonlateralizing. Skin: No rash. Normal color. No pallor. Musculoskeletal: No pedal edema. Full range of motion extremities. Const Vital Signs: 04/16/21 00:34 04/16/21 00:42 04/16/21 00:43 Temperature 99 F 99 F Temperature Source Oral Oral Pulse Rate 82 73 Respiratory Rate 24 H 16 Respiratory Effort Short of Breath Respiratory Depth Shallow Respiratory Pattern Tachypnea Blood Pressure 181/69 H 181/69 H Blood Pressure Mean 106 106 Pulse Ox 100 99 Oxygen Delivery Method Nasal Cannula Nasal Cannula Oxygen Flow Rate (L/min) 4 4 04/16/21 01:19 04/16/21 01:45 04/16/21 02:16 Temperature 99.1 F 98.9 F Temperature Source Oral Oral Pulse Rate 78 67 Respiratory Rate 28 H 19 H Respiratory Effort Respiratory Depth Respiratory Pattern Blood Pressure 172/78 H 146/62 H Blood Pressure Mean 109 90 Pulse Ox 98 99 Oxygen Delivery Method Nasal Cannula Room Air Nasal Cannula Oxygen Flow Rate (L/min) 4 MDM MDM MDM Narrative Medical decision making narrative: Sepsis work-up was pursued. EKG demonstrates normal sinus rhythm at 88 bpm without ectopy or acute ST changes. Patient has a low WBC count of 3.8, commonly seen with COVID-19. Hemoglobin 10.8 and stable. Normal platelet count of 219. Coagulation studies are negative. Lactic acid negative at 1.0. Electrolytes on CMP are grossly unremarkable. Urinalysis shows no evidence of infection. She has a positive swab for COVID-19, but negative for influenza and RSV. Her saturation is 99 to 100% on 4 L nasal cannula. She would like to go home. As she already has oxygen, she was told she can increase her oxygen level to 6 L, and she also has pulse oximetry at home. She has not requiring high flow nasal cannula oxygen. She was given Decadron 6 mg intravenously here in the emergency department and a prescription written for the next 7 days. Additionally, given her age, BMI, and interstitial, chronic lung disease I do feel she qualifies for monoclonal antibody infusion as she is day 2 of her symptoms albeit early in the morning. The following information was communicated to the patient or caregiver: Monoclonal antibody infusion is not an FDA approved drug. The FDA has authorized the emergency use of monoclonal antibody therapy. The patient had the option to refuse or accept treatment with monoclonal antibody therapy. The patient was informed that the number of people treated with monoclonal antibody therapy at this time is small. The potential benefits and the potential risks of monoclonal antibody therapy are not fully known. Potential benefits of monoclonal antibody include a reduced risk of progressing to severe COVID-19 infection. Potential risks or side effects of monoclonal antibody therapy include allergic reactions, side effects from injection including brief pain, bleeding, bruising of the skin, soreness, swelling, possible infection at the infusion site. The patient stated understanding of this information communicated and wished to proceed with monoclonal antibody infusion therapy. The patient is appropriate for the Monoclonal Antibody Infusion. The patient states understanding of this information communicated and wishes to proceed with monoclonal antibody infusion therapy. Patient agrees to receive either Balanivimab/Etesvimab or Casirivimab/Imdevimab upon availability. Return instructions to the emergency department were reviewed. Disposition is discharged home in stable condition. Lab Data Attestation: I reviewed the patient's lab results. Labs: Laboratory Results - last 24 hr 04/16/21 04/16/21 04/16/21 01:04 01:04 01:04 WBC 3.8 L RBC 3.83 L Hgb 10.8 L Hct 34.9 L MCV 91.1 MCH 28.2 MCHC 30.9 L RDW Std Deviation 49.0 H RDW Coeff of Josesito 14.6 Plt Count 213 MPV 9.6 Immature Gran % (Auto) 0.500 Neut % (Auto) 69.1 Lymph % (Auto) 13.1 L [place] % (Auto) 12.8 H Eos % (Auto) 4.2 Baso % (Auto) 0.3 Absolute Neuts (auto) 2.7 Absolute Lymphs (auto) 0.50 L Nucleated RBC % 0 Diff Path Review May foll PT 12.8 INR 1.0 APTT 29.3 Sodium 141 Potassium 3.8 Chloride 107 Carbon Dioxide 29.0 Anion Gap 5 BUN 10 Creatinine 0.93 Estim Creat Clear Calc 42.61 Est GFR (MDRD) Af Amer 76 Est GFR (MDRD) Non-Af 63 BUN/Creatinine Ratio 10.8 Glucose 100 Lactic Acid Calcium 8.5 Total Bilirubin 0.30 AST 31 ALT 49 Alkaline Phosphatase 145 H Total Protein 6.4 Albumin 2.9 L Globulin 3.5 Albumin/Globulin Ratio 0.8 L Urine Color Urine Clarity Urine pH Ur Specific [place] Urine Protein Urine Glucose (UA) Urine Ketones Urine Occult Blood Urine Nitrite Urine Bilirubin Urine Urobilinogen Ur Leukocyte Esterase Urine RBC Urine WBC Ur Squamous Epith Cells Urine Bacteria Urine Mucus 04/16/21 04/16/21 01:04 01:25 WBC RBC Hgb Hct MCV MCH MCHC RDW Std Deviation RDW Coeff of Josesito Plt Count MPV Immature Gran % (Auto) Neut % (Auto) Lymph % (Auto) [place] % (Auto) Eos % (Auto) Baso % (Auto) Absolute Neuts (auto) Absolute Lymphs (auto) Nucleated RBC % Diff Path Review PT INR APTT Sodium Potassium Chloride Carbon Dioxide Anion Gap BUN Creatinine Estim Creat Clear Calc Est GFR (MDRD) Af Amer Est GFR (MDRD) Non-Af BUN/Creatinine Ratio Glucose Lactic Acid 1.0 Calcium Total Bilirubin AST ALT Alkaline Phosphatase Total Protein Albumin Globulin Albumin/Globulin Ratio Urine Color Yellow Urine Clarity Clear Urine pH 8.0 Ur Specific [place] 1.015 Urine Protein 15 H Urine Glucose (UA) Normal Urine Ketones Negative Urine Occult Blood Negative Urine Nitrite Negative Urine Bilirubin Negative Urine Urobilinogen Normal Ur Leukocyte Esterase Negative Urine RBC 0 SEEN Urine WBC 0 SEEN Ur Squamous Epith Cells 0-5 SEEN Urine Bacteria RARE Urine Mucus 0 SEEN Radiography Diagnostic Testing: Clinical Impression(s) from Imaging Studies Chest X-Ray 04/16/21 00:56 IMPRESSION: Chronic appearing lung markings. No definitive focal infiltrate. No demonstrated acute cardiopulmonary process. Electronically Signed: Lyric Lopez MD at 2:22 EST Tel , Service support , Discharge Plan Triage Chief Complaint: Shortness of Breath ED Provider: Kodak Paz Dx/Rx/DC Orders Clinical Impression: COVID-19 Instructions: Coronavirus Disease 2019 (COVID-19): Caring for Yourself or Others Prescriptions: New dexamethasone [Decadron] 6 mg tablet 6 mg PO DAILY Qty: 7 RF: 0 No Action escitalopram oxalate 10 mg tablet 10 mg PO QHS 30 Days Qty: 30 RF: 0 pramipexole 0.125 mg tablet 1 mg PO QHS RF: 0 levothyroxine 25 mcg tablet 25 mcg PO DAILY RF: 0 Ofev 150 mg capsule 150 mg PO BID RF: 0 Primary Care Provider: Ernesto Hensley Chi Referrals: Ernesto Hensley Chi, MD [Primary Care Provider] - Activity Restrictions/Additional Instructions: Decadron orally for 7 days as directed. Continue use of your oxygen per nasal cannula. You may go as high as 6 L/min. Monitor your pulse ox. If your pulse ox is low/below 90 when using 6 L of oxygen, return to the emergency department. 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 Disposition Disposition: Home, Self Care
[2021-04-16 01:25] LABS: Absolute Neutrophil Count 2.7 X10^3/uL (2.0-7.7); Basophil# 0.01 X10^3/uL; Basophil% 0.3 % (0-1); Eosinophil# 0.16 X10^3/uL; Eosinophils% 4.2 % (0-5); Hematocrit 34.9 % (37-47); Hemoglobin 10.8 g/dL (12.0-15.0); Lymphocyte % 13.1 % (19-41); Mean Corp Hgb Conc 30.9 g/dL (32-36); Mean Corpuscular Hgb 28.2 pg (27.0-32.0); Mean Corpuscular Volume 91.1 fL (81-99); Mean Platelet Vol. 9.6 fl (6.2-12.0); Monocyte# 0.49 X10^3/uL; Monocyte% 12.8 % (0-10); NRBC Flagged by Analyzer 0 % (0-5); Neutrophil # 2.65 X10^3/uL (2.7-7.7); Neutrophil % 69.1 % (47-70); POSITIVE DIFFERENTIAL YES; Platelet Count 213 K/mm3 (150-450); RBC Distribution Width CV 14.6 % (11.6-14.6); Red Blood Count 3.83 M/mm3 (4.2-5.4); White Blood Count 3.8 K/mm3 (4.4-11.0)
[2021-04-16 01:34] LABS: Color, Urine Yellow (Yellow); Glucose, Dipstick Normal (Normal); Ketone-Dipstick Negative (Negative); Leukocyte Esterase-Dipstick Negative /ul (Negative); Mucous, Urine 0 SEEN /hpf (<or=2+); Nitrite-Dipstick Negative (Negative); Occult Blood-Urine Negative /ul (Negative); Protein-Dipstick 15 mg/dl (Negative); Red Blood Cells-Urine 0 SEEN /hpf (0-5); Specific Gravity, Urine 1.015 (1.002-1.030); Urine Bilirubin Dipstick Negative (Negative); Urine Clarity Clear (Clear); Urine Urobilinogen Normal (Normal); White Blood Cells 0 SEEN /hpf (0-5)
[2021-04-16 01:36] LABS: Partial Thromboplast Time 29.3 Seconds (24.1-36.2)
[2021-04-16 01:41] LABS: Prothrombin Time (Protime)PT. 12.8 SECONDS (11.7-14.9)
[2021-04-16 01:45] VITALS: BP 172/78; PULSE 78; RESP 28; TEMP 37.3; O2SAT 98
[2021-04-16 01:57] LABS: Differential Indicated SCAN CRITERIA MET
[2021-04-16 02:16] VITALS: BP 146/62; PULSE 67; RESP 19; TEMP 37.2; O2SAT 99
[2021-04-16 02:20] LABS: Bacteria RARE /hpf (None Seen); Squamous Epithelial Cells - UA 0-5 SEEN /hpf (5-10)
[2021-04-16 02:33] LABS: ALB/GLOB Ratio 0.8 RATIO (0.9-2.4); AST(SGOT) 31 U/L (15-37); Alanine Aminotransfer ALT/SGPT 49 U/L (13-56); Albumin, Serum 2.9 g/dL (3.2-5.0); Alkaline Phosphatase 145 U/L (45-117); Anion Gap 5 (5-15); BUN 10 mg/dL (7-18); BUN/Creat Ratio 10.8 RATIO (10-20); Calcium,Total 8.5 mg/dL (8.5-10.1); Chloride 107 mmol/L (98-107); Creatinine, Serum 0.93 mg/dL (0.55-1.02); EST Glomerular Filtration Rate 63 mL/min (>60); Est Glom Filt Rate - Afr Amer 76 mL/min (>60); Estimated Creatinine Clearance 42.61 ml/min; Globulin 3.5 g/dL (2.2-4.2); Glucose 100 mg/dL (74-106); Potassium 3.8 mmol/L (3.5-5.1); Protein, Total 6.4 g/dL (6.4-8.2); Sodium Level 141 mmol/L (136-145)
[2021-04-16] MEDS: dexAMETHasone 10 MG/ML Vial 6 MG IV (02:35)
[2021-04-16 02:44] VITALS: PULSE 68; RESP 17; O2SAT 98
[2021-04-17 10:13] LABS: Pathologist Review Reviewed
== END 2021-04-16 03:00 | disposition home or self-care (01) ==
PROVIDERS: Emergency Provider Emergency Medicine; PCP Family Medicine Geriatric Medicine
DX: Z23 Encounter for immunization (principal); U07.1 COVID-19; J84.10 Pulmonary fibrosis, unspecified; Z87.891 Personal history of nicotine dependence; Z79.899 Other long term (current) drug therapy
CPT/HCPCS: 71045; 80053; 81001; 83605; 85025; 85610; 85730; 87040; 87086; 87088; 87426; 87804; 87807; 93005; 96374; 99284; J7050; M0245; Q0245; A4216

== ENCOUNTER 2021-04-16 12:52 | Outpatient (CLI) | payer MEDICARE, SELFPAY ==
[2021-04-16] MEDS: 0.9% Saline Lock 10 ML Syringe IV (13:14)
[2021-04-16 13:15] VITALS: BP 158/87; PULSE 82; RESP 20; TEMP 36.9; O2SAT 98; BMI 31.1
[2021-04-16 13:51] VITALS: BP 152/77; PULSE 72; RESP 16; TEMP 36.4; O2SAT 100
[2021-04-16 14:51] VITALS: BP 140/77; PULSE 81; RESP 18; TEMP 36.7; O2SAT 100
== END 2021-04-16 14:51 | disposition home or self-care (01) ==
LOC: MS3OUT 12:53 → MS3 12:53
PROVIDERS: PCP Family Medicine Geriatric Medicine; Referring Provider Internal Medicine Pulmonary Disease; Visit Provider Internal Medicine Pulmonary Disease
DX: Z23 Encounter for immunization (principal); U07.1 COVID-19; J84.10 Pulmonary fibrosis, unspecified
CPT/HCPCS: J7050; M0245; Q0245; A4216

== ENCOUNTER 2021-06-18 16:14 | Outpatient (CLI) | payer MEDICARE, SELFPAY ==
[2021-06-18 17:40] LABS: Hematocrit 38.5 % (37-47); Hemoglobin 11.9 g/dL (12.0-15.0); Mean Corp Hgb Conc 30.9 g/dL (32-36); Mean Corpuscular Hgb 29.6 pg (27.0-32.0); Mean Corpuscular Volume 95.8 fL (81-99); Mean Platelet Vol. 10.2 fl (6.2-12.0); Platelet Count 205 K/mm3 (150-450); RBC Distribution Width CV 14.7 % (11.6-14.6); RBC Distribution Width SD 51.9 fl (35.1-43.9); Red Blood Count 4.02 M/mm3 (4.2-5.4); White Blood Count 5.6 K/mm3 (4.4-11.0)
== END 2021-06-18 23:59 | disposition home or self-care (01) ==
LOC: MTLAB 16:16
PROVIDERS: PCP Family Medicine Geriatric Medicine; Referring Provider Internal Medicine Pulmonary Disease; Visit Provider Internal Medicine Pulmonary Disease
DX: U07.1 COVID-19 (principal); J84.10 Pulmonary fibrosis, unspecified
CPT/HCPCS: 36415; 85027

== ENCOUNTER 2021-07-03 10:53 | Outpatient (CLI) | payer MEDICARE, SELFPAY ==
--- NOTE | 2021-07-03 10:57 | RAD_ITS ---
STUDY: X-RAY CHEST REASON FOR EXAM: Female, 71 years old. SHORTNESS OF BREATH TECHNIQUE: PA and lateral views of the chest. COMPARISON: 04/16/2021 FINDINGS: There are interstitial fibrotic changes of the lungs. There is no demonstrated pleural abnormality. Normal size heart. Normal mediastinum and brennan. Normal visualized pulmonary arteries. Normal visualized aortic arch and descending thoracic aorta. Normal visualized thoracic spine. Normal visualized ribs, clavicles, and shoulders. There is no demonstrated abnormality of the visualized soft tissue structures of the upper abdomen. RAD/Chest PA and Lateral IMPRESSION: Degenerative changes, as described above. No demonstrated acute cardiopulmonary process. Electronically Signed: Stephan Almaraz MD at 11:29 EDT ,
== END 2021-07-03 23:59 | disposition home or self-care (01) ==
PROVIDERS: PCP Family Medicine Geriatric Medicine; Referring Provider Family Medicine Geriatric Medicine; Visit Provider Family Medicine Geriatric Medicine
DX: R06.02 Shortness of breath (principal)
CPT/HCPCS: 71046

== ENCOUNTER 2021-07-16 15:35 | Outpatient (CLI) | payer MEDICARE, SELFPAY ==
--- NOTE | 2021-07-16 15:40 | VDLE_ITS ---
Reason For Study: Localized edema Procedure LEFT This is a venous duplex using B-mode, color GSV is normal. flow and spectral Doppler. CFV is compressible, spontaneous, phasic, Exam performed in department. competent, and demonstrates normal A preliminary report was called and/or faxed augmentation. to Alessia. FV is compressible, spontaneous, phasic, competent and demonstrates normal augmentation. POP V is compressible, spontaneous, phasic, competent and demonstrates normal augmentation. T/P Trunk is compressible. PTV is compressible. LT PerV is compressible. VL/Venous Duplex US, Unilateral Interpretation Summary Deep veins of the left lower extremity are patent and compressible segmentally. There is no evidence of left lower extremity deep vein thrombosis. Valvular competence appears intac t within the proximal deep venous system on the left . The left great saphenous vein appears patent a nd compressible segmentally. Ordering Physician: Tobi Aggarwal Referring Physician: Ernesto Hensley Chi Performed By: Liz Eugene RVT
== END 2021-07-16 23:59 | disposition home or self-care (01) ==
LOC: CVS 15:38
PROVIDERS: PCP Family Medicine Geriatric Medicine; Referring Provider Internal Medicine Pulmonary Disease; Visit Provider Internal Medicine Pulmonary Disease
DX: R60.0 Localized edema (principal)
CPT/HCPCS: 93971

== ENCOUNTER 2021-07-19 15:49 | Emergency (ER) | payer MEDICARE, SELFPAY ==
[2021-07-19 15:50] VITALS: BP 164/81; PULSE 83; RESP 17; TEMP 36.4; O2SAT 95; BMI 31.1
--- NOTE | 2021-07-19 16:21 | ED.VIS.GI ---
HPI HPI - GI History of Present Illness Chief Complaint: Nausea/Vomiting/Diarrhea Informant: patient Abdominal Pain/Flank Pain Maximum Severity: Mild Worsened by: Nothing Nausea/Vomiting/Emesis GI Symptom: Positive for Nausea and Vomiting Onset: Today and Yesterday Quality: Positive for Nonbilious Severity: Mild Diarrhea/Melena/Hematochezia GI Symptom: Positive for Diarrhea Onset: Today Stool Quality: Positive for Loose Severity: Mild Associated Symptoms Associated Symptoms: Negative for Dysuria, Frequency, Hematuria and Urgency Narrative Narrative: 71-year-old female states she is having nausea and vomiting yesterday with mild loose stools. No fever. No abdominal pain. Limited oral intake. Denies any dysuria. Prior similar symptoms: Yes Recent Illness/Hospitalization: No PFSH PFSH Medical History (Updated 07/19/21 @ 19:[address] Willi Flores MD) Fatigue HTN (hypertension) IPF (idiopathic pulmonary fibrosis) Home Medications escitalopram oxalate 10 mg tablet 10 mg PO QHS 30 Days #30 06/22/17 [History Last Taken Unknown] pramipexole 0.125 mg tablet 1 mg PO QHS 05/05/18 [History Last Taken Unknown] levothyroxine 25 mcg PO DAILY 10/22/20 [History Last Taken Unknown] dexamethasone [Decadron] 6 mg PO DAILY #7 tab 04/16/21 [Rx Last Taken Unknown] nintedanib [Ofev] 150 mg PO BID 04/16/21 [History Last Taken Unknown] Allergy/AdvReac Type Severity Reaction Status Date / Time No Known Allergies Allergy Verified 10/22/20 05:02 Social History Smoking Status: Former smoker alcohol intake: never ROS ROS ED ROS Narrative Nausea vomiting diarrhea. Review of Systems ROS Unobtainable: Denies due to encephalopathy Constitutional Constitutional ED: Denies fever(s) ENT ENT ED: Denies ear pain Cardiovascular Cardiovascular: Denies chest pain Respiratory/Chest Respiratory/Chest: Denies dyspnea Gastrointestinal Gastrointestinal: Reports diarrhea, nausea and vomiting; Denies abdominal pain, constipation or melena Genitourinary Genitourinary ED: Denies dysuria Musculoskeletal Musculoskeletal: Denies myalgias Integumentary Denies rash Neurologic Neurologic: Denies headache(s) Psychiatric Psychiatric: Denies depression Endocrine Endocrinology: Denies polyuria Hematologic/Lymphatic Hematologic/Lymphatic: Denies easy bruising Allergic/Immunologic Allergic/Immunologic ED: Denies urticaria EXAM Physical Exam Narrative Exam Narrative: Keila female no acute distress. Vital signs stable afebrile. H EENT exam unremarkable. Moist extremities. Neck nontender no JVD no lymphadenopathy. Lungs clear to auscultation. Heart regular rate and rhythm no murmur rate about 80. Abdomen soft nondistended normal bowel sounds no peritoneal signs. Completely nontender. Moving all 4 extremities. Nontender. Neurologically she is awake and alert. Benign exam. Const Vital Signs: 07/19/21 15:50 07/19/21 17:29 07/19/21 18:33 Temperature 97.6 F L Temperature Source Temporal Pulse Rate 83 Respiratory Rate 17 18 Blood Pressure 164/81 H Blood Pressure Mean 108 Pulse Ox 95 Oxygen Delivery Method Nasal Cannula Nasal Cannula Oxygen Flow Rate (L/min) 3 Positive well nourished, well developed and obese; Negative for cachectic, contractures or unkempt General Appearance ED: well developed and NAD; Negative for unkempt, cachectic, contractures or pallor Nutritional Appearance: obese; Negative for cachectic HEENT Reports moist mucous membranes normocephalic and atraumatic; Negative for trauma or tenderness Eyes PERRL and EOMs intact bilaterally Neck no lymphadenopathy, supple and no JVD General: Negative for tenderness Resp normal respiratory effort and clear to auscultation bilaterally Auscultation: Negative for rales, rhonchi or wheezes Cardio regular rate, regular rhythm, S1 normal heart sound, S2 normal heart sound and no murmurs GI non-tender, non-distended and no masses Inspection: Negative for abdominal distention Auscultation: normoactive bowel sounds; Negative for hypoactive bowel sounds Palpation: soft; Negative for tender, guarding, rigid or rebound tenderness present Back/Spine no CVA tenderness General Back: Negative for CVA tenderness Cervical Spine: Negative for cervical spine tenderness Extremity full ROM General Extremety ED: Negative for edema or tenderness General Extremity: Negative for edema Neuro moves all extremities Sensorium / Orientation: alert, oriented to person, oriented to place and oriented to time; Negative for orientation impaired, confused, lethargic or stuporous Motor Exam: strength 5/5 throughout Psych mental status grossly normal and thought process normal Appearance: Negative for unkempt Skin no wounds General Skin Exam: Negative for jaundice or pallor Lesions: no lesions Rashes: no rashes MDM MDM MDM Narrative Medical decision making narrative: 71-year-old female with nausea vomiting diarrhea. Appears to be a viral syndrome. She will be treated with IV fluids and IV Zofran. She is having no abdominal pain. I will obtain screening labs. Repeat exam at 7:15 PM patient doing well. Nausea is resolved. She feels well. Abdomen is completely benign. Nontender. She is comfortable being discharged to home. She has nausea medication at home. Lab Data Attestation: I reviewed the patient's lab results. Lab results narrative: CBC White count of 7. H&H 12 and 37. Electrolytes show a gap of 2 normal BUN and creatinine. Liver enzymes unremarkable. Labs: Laboratory Results - last 24 hr 07/19/21 07/19/21 16:15 16:15 WBC 7.2 RBC 4.16 L Hgb 12.2 Hct 37.8 MCV 90.9 MCH 29.3 MCHC 32.3 RDW Std Deviation 50.2 H RDW Coeff of Josesito 15.1 H Plt Count MPV 11.5 Immature Gran % (Auto) 0.700 Neut % (Auto) 57.2 Lymph % (Auto) 28.8 [place] % (Auto) 9.0 Eos % (Auto) 4.0 Baso % (Auto) 0.3 Absolute Neuts (auto) 4.1 Absolute Lymphs (auto) 2.08 Nucleated RBC % 0 Platelet Estimate ADEQUATE RBC Morphology NORM C+C Sodium 139 Potassium 4.5 Chloride 105 Carbon Dioxide 32.0 Anion Gap 2 L BUN 10 Creatinine 0.79 Estim Creat Clear Calc 37.81 Est GFR (MDRD) Af Amer 92 Est GFR (MDRD) Non-Af 76 BUN/Creatinine Ratio 12.7 Glucose 80 Calcium 9.2 Total Bilirubin 0.60 AST 39 H ALT 27 Alkaline Phosphatase 93 Total Protein 6.7 Albumin 3.1 L Globulin 3.6 Albumin/Globulin Ratio 0.9 Discharge Plan Triage Chief Complaint: Nausea/Vomiting/Diarrhea ED Provider: Willi Flores Dx/Rx/DC Orders Clinical Impression: Viral gastroenteritis, Vomiting Instructions: ED Gastroenteritis, Viral (Adult) Prescriptions: No Action escitalopram oxalate 10 mg tablet 10 mg PO QHS 30 Days Qty: 30 RF: 0 pramipexole 0.125 mg tablet 1 mg PO QHS RF: 0 levothyroxine 25 mcg tablet 25 mcg PO DAILY RF: 0 Ofev 150 mg capsule 150 mg PO BID RF: 0 dexamethasone [Decadron] 6 mg tablet 6 mg PO DAILY Qty: 7 RF: 0 Primary Care Provider: Ernesto Hensley Chi Referrals: Ernesto Hensley Chi, MD [Primary Care Provider] - Activity Restrictions/Additional Instructions: Plenty of fluids and rest. Increase your diet slowly as tolerated. Home nausea medications as needed. Follow-up with your doctor to ensure you are improving or return if feeling worse. Disposition Disposition: Home, Self Care
[2021-07-19] MEDS: 0.9% Normal Saline 1,000 ML 1000 ML IV (16:27)
[2021-07-19] MEDS: Ondansetron 4 MG/2 ML Vial IV (16:27)
[2021-07-19 16:37] LABS: Absolute Lymphocyte Count 2.08 X10^3/uL (0.83-4.51); Absolute Neutrophil Count 4.1 X10^3/uL (2.0-7.7); Basophil# 0.02 X10^3/uL; Basophil% 0.3 % (0-1); Eosinophil# 0.29 X10^3/uL; Hematocrit 37.8 % (37-47); Hemoglobin 12.2 g/dL (12.0-15.0); Lymphocyte # 2.08 X10^3/ul (0.83-4.51); Lymphocyte % 28.8 % (19-41); Mean Corp Hgb Conc 32.3 g/dL (32-36); Mean Corpuscular Hgb 29.3 pg (27.0-32.0); Mean Corpuscular Volume 90.9 fL (81-99); Mean Platelet Vol. 11.5 fl (6.2-12.0); Monocyte# 0.65 X10^3/uL; NRBC Flagged by Analyzer 0 % (0-5); Neutrophil # 4.13 X10^3/uL (2.7-7.7); Neutrophil % 57.2 % (47-70); POSITIVE COUNT YES; RBC Distribution Width CV 15.1 % (11.6-14.6); RBC Distribution Width SD 50.2 fl (35.1-43.9); Red Blood Count 4.16 M/mm3 (4.2-5.4); White Blood Count 7.2 K/mm3 (4.4-11.0)
[2021-07-19 17:01] LABS: Differential Indicated SCAN CRITERIA MET
[2021-07-19 17:08] LABS: ALB/GLOB Ratio 0.9 RATIO (0.9-2.4); AST(SGOT) 39 U/L (15-37); Alanine Aminotransfer ALT/SGPT 27 U/L (13-56); Albumin, Serum 3.1 g/dL (3.2-5.0); Alkaline Phosphatase 93 U/L (45-117); Anion Gap 2 (5-15); BUN 10 mg/dL (7-18); BUN/Creat Ratio 12.7 RATIO (10-20); Calcium,Total 9.2 mg/dL (8.5-10.1); Chloride 105 mmol/L (98-107); Creatinine, Serum 0.79 mg/dL (0.55-1.02); EST Glomerular Filtration Rate 76 mL/min (>60); Est Glom Filt Rate - Afr Amer 92 mL/min (>60); Estimated Creatinine Clearance 37.81 ml/min; Globulin 3.6 g/dL (2.2-4.2); Glucose 80 mg/dL (74-106); Potassium 4.5 mmol/L (3.5-5.1); Protein, Total 6.7 g/dL (6.4-8.2); Sodium Level 139 mmol/L (136-145)
[2021-07-19 17:46] LABS: Platelet Estimate ADEQUATE (ADEQ)
[2021-07-19 17:47] LABS: Red Cell Morphology NORM C+C NORMAL (NORM C&C)
[2021-07-19 18:33] VITALS: RESP 18
[2021-07-19 19:30] VITALS: BP 142/95
== END 2021-07-19 19:30 | disposition home or self-care (01) ==
PROVIDERS: Emergency Provider Emergency Medicine; PCP Family Medicine Geriatric Medicine; Visit Provider Emergency Medicine
DX: A08.4 Viral intestinal infection, unspecified (principal); J84.112 Idiopathic pulmonary fibrosis; I10 Essential (primary) hypertension; R11.10 Vomiting, unspecified; Z79.899 Other long term (current) drug therapy; Z87.891 Personal history of nicotine dependence
CPT/HCPCS: 80053; 85025; 96361; 96374; 99283; J7030; A4216; J2405

== ENCOUNTER → 2021-09-06 | Outpatient (CLI) | payer MEDICARE, SELFPAY ==
--- NOTE | 2021-09-06 09:34 | RAD_ITS ---
STUDY: X-RAY - UNILATERAL RIBS ( LEFT ) WITH CHEST REASON FOR EXAM: Female, 71 years old. Pleurodynia. TECHNIQUE - RIBS: 3 view(s) of the ribs. TECHNIQUE - CHEST: Single frontal view of the chest. COMPARISON: Chest x-ray dated 07/03/2021. FINDINGS - RIBS: Osteopenia of the osseous structures. No displaced rib fracture. FINDINGS - CHEST: Low volume inspiration with bibasilar atelectasis/scarring, unchanged. There is no demonstrated pleural abnormality. Stable cardiomegaly. Normal mediastinum and brennan. Normal visualized pulmonary arteries. Aortic tortuosity unchanged. Normal visualized thoracic spine. Normal visualized ribs, clavicles, and shoulders. There is no demonstrated abnormality of the visualized soft tissue structures of the upper abdomen. RAD/Ribs Uni Min 3V w/PA Chest IMPRESSION: RIBS: Osteopenia with no displaced rib fracture. CHEST: Stable cardiomegaly with low volume inspiration and atelectasis/scarring at both bases. Electronically Signed: Manas Gray MD at 10:16 EDT ,
== END | disposition home or self-care (01) ==
LOC: RAD 09:20
PROVIDERS: PCP Family Medicine Geriatric Medicine; Referring Provider Family Medicine Geriatric Medicine; Visit Provider Family Medicine Geriatric Medicine
DX: R07.81 Pleurodynia (principal)
CPT/HCPCS: 71101

== ENCOUNTER → 2021-09-12 | Outpatient (CLI) | payer MEDICARE, SELFPAY ==
[2021-09-12 17:08] LABS: Absolute Lymphocyte Count 1.26 X10^3/uL (0.83-4.51); Absolute Neutrophil Count 6.8 X10^3/uL (2.0-7.7); Basophil# 0.04 X10^3/uL; Basophil% 0.4 % (0-1); Eosinophil# 0.49 X10^3/uL; Eosinophils% 5.3 % (0-5); Hemoglobin 12.5 g/dL (12.0-15.0); Lymphocyte # 1.26 X10^3/ul (0.83-4.51); Lymphocyte % 13.6 % (19-41); Mean Corp Hgb Conc 31.3 g/dL (32-36); Mean Corpuscular Hgb 29.6 pg (27.0-32.0); Mean Corpuscular Volume 94.6 fL (81-99); Mean Platelet Vol. 10.1 fl (6.2-12.0); Monocyte# 0.58 X10^3/uL; Monocyte% 6.3 % (0-10); NRBC Flagged by Analyzer 0 % (0-5); Neutrophil # 6.82 X10^3/uL (2.7-7.7); Neutrophil % 73.4 % (47-70); Platelet Count 275 K/mm3 (150-450); RBC Distribution Width CV 14.4 % (11.6-14.6); RBC Distribution Width SD 49.6 fl (35.1-43.9); Red Blood Count 4.23 M/mm3 (4.2-5.4); White Blood Count 9.3 K/mm3 (4.4-11.0)
[2021-09-12 17:23] LABS: Vitamin D,25 Hydroxy 31.4 ng/mL
[2021-09-12 17:27] LABS: AST(SGOT) 22 U/L (15-37); Alanine Aminotransfer ALT/SGPT 61 U/L (13-56); Albumin, Serum 3.6 g/dL (3.2-5.0); Alkaline Phosphatase 125 U/L (45-117); Anion Gap 8 (5-15); BUN 10 mg/dL (7-18); BUN/Creat Ratio 11.6 RATIO (10-20); Calcium,Total 9.3 mg/dL (8.5-10.1); Chloride 105 mmol/L (98-107); Cholesterol 167 mg/dL (200); Creatinine, Serum 0.86 mg/dL (0.55-1.02); EST Glomerular Filtration Rate 68 mL/min (>60); Est Glom Filt Rate - Afr Amer 83 mL/min (>60); Globulin 3.6 g/dL (2.2-4.2); Glucose 119 mg/dL (74-106); High Density Lipoprotein 45 mg/dL; Potassium 3.8 mmol/L (3.5-5.1); Protein, Total 7.2 g/dL (6.4-8.2); Sodium Level 144 mmol/L (136-145); Thyroid Stim Hormone (TSH) 2.49 uIU/mL (0.358-3.74); Triglycerides 150 mg/dL; Very Low Density Lipoprotein 30 mg/dL (5-40)
== END | disposition home or self-care (01) ==
LOC: POLAB3 12:57
PROVIDERS: PCP Family Medicine Geriatric Medicine; Visit Provider Family Medicine Geriatric Medicine
DX: E55.9 Vitamin D deficiency, unspecified (principal); E78.5 Hyperlipidemia, unspecified; I10 Essential (primary) hypertension
CPT/HCPCS: 36415; 80053; 80061; 82306; 84443; 85025

== ENCOUNTER → 2021-10-29 | Outpatient (CLI) | payer MEDICARE, SELFPAY ==
--- NOTE | 2021-10-29 12:12 | CT_ITS ---
STUDY: CT CHEST WITHOUT CONTRAST REASON FOR EXAM: Female, 71 years old. IPF /COVID IN MAR 2021 RADIATION DOSAGE (If Supplied By Facility): CTDIvol = ( 12.28 ) mGy, DLP = ( 361.76 ) mGycm TECHNIQUE: Transaxial imaging was performed without the administration of intravenous contrast material. Multiplanar coronal and sagittal images were reformatted. Individualized dose optimization techniques were used for this CT. COMPARISON: Comparison is made with prior study 01/22/2021. FINDINGS: CHEST Stable appearance of the diffuse increased interstitial markings in both lungs involving both upper and lower lobes with areas of bronchiectasis and subpleural blebs. This is in keeping with the chronic interstitial fibrosis. There is no demonstrated pleural abnormality. There are calcifications of the coronary arteries. There are multiple small lymph nodes within the mediastinum, which are normal in size and morphology most compatible with reactive lymph hyperplasia. Normal hilar regions. Normal unenhanced pulmonary arteries. There is atherosclerotic calcification of the aortic arch with tortuosity and elongation of the aortic arch and descending thoracic aorta. There are multi-level degenerative changes of the thoracic spine. There is no demonstrated abnormality of the visualized upper abdomen. CT/Chest without Contrast IMPRESSION: Stable examination. Electronically Signed: Farooq Bautista MD at 14:00 EDT ,
== END | disposition home or self-care (01) ==
LOC: CT 12:09
PROVIDERS: PCP Family Medicine Geriatric Medicine; Referring Provider Internal Medicine Pulmonary Disease; Visit Provider Internal Medicine Pulmonary Disease
DX: U07.1 COVID-19 (principal); J84.112 Idiopathic pulmonary fibrosis
CPT/HCPCS: 71250

== ENCOUNTER → 2022-01-08 | Outpatient (CLI) | payer MEDICARE, SELFPAY | END | disposition home or self-care (01) | LOC: PSN 14:07 | PROVIDERS: PCP Family Medicine Geriatric Medicine; Referring Provider Internal Medicine Pulmonary Disease; Visit Provider Internal Medicine Pulmonary Disease | DX: R05.9 Cough, unspecified (principal); Z11.59 Encounter for screening for other viral diseases | CPT/HCPCS: 87635; C9803; U0003; U0005 ==

== ENCOUNTER → 2022-01-21 | Outpatient (CLI) | payer MEDICARE, SELFPAY ==
--- NOTE | 2022-01-21 16:12 | RAD_ITS ---
STUDY: X-RAY CHEST REASON FOR EXAM: Female, 71 years old. Cough. TECHNIQUE: PA and lateral views of the chest. COMPARISON: 07/03/2021 FINDINGS: There is chronic interstitial pulmonary changes without acute infiltrate or mass. There is no demonstrated pleural abnormality. Normal size heart. Normal mediastinum and brennan. Normal visualized pulmonary arteries. Normal visualized aortic arch and descending thoracic aorta. There are diffuse degenerative changes of the visualized thoracic spine. There is degenerative osteoarthritis of the bilateral shoulders. There is no demonstrated abnormality of the visualized soft tissue structures of the upper abdomen. RAD/Chest PA and Lateral IMPRESSION: Degenerative changes, as described above. No demonstrated acute cardiopulmonary process. No major interval change. Electronically Signed: Wilfredo Wolf DO at 23:00 EDT ,
== END | disposition home or self-care (01) ==
LOC: RAD 16:06
PROVIDERS: PCP Family Medicine Geriatric Medicine; Referring Provider Family Medicine Geriatric Medicine; Visit Provider Family Medicine Geriatric Medicine
DX: R05.9 Cough, unspecified (principal)
CPT/HCPCS: 71046

== ENCOUNTER → 2022-03-17 | Outpatient (CLI) | payer MEDICARE, SELFPAY ==
--- NOTE | 2022-03-17 14:19 | ECHOD_ITS ---
Reason For Study: Suspected PHTN Procedure This was a 2D Doppler, Color Flow transthoracic echocardiogram. Myocardial strain analysis was performed in this exam to aid in the assessment of cardiac function. Exam performed in department. Left Ventricle Normal LV size. Apical noncompaction noted. Left ventricular systolic function is normal. The estimated ejection fraction is 55 %. No regional wall motion abnormalities noted. Right Ventricle Normal RV size. Normal systolic function. Atria Normal left atrium. Normal right atrium. Mitral Valve Normal mitral valve. Tricuspid Valve Normal tricuspid valve. Mild (1+) tricuspid valve insufficiency. Pulmonary artery systolic pressure is 40 mmHg. Aortic Valve Trisinus/trileaflet aortic valve. Pulmonic Valve Normal pulmonic valve. Great Vessels Normal aortic root. The pulmonary artery is normal size. Normal inferior vena cava. Pericardium/Pleural No pericardial effusion. MMode/2D Measurements & Calculations LVIDd: 4.4 cm IVSd: 1.1 cm Ao root diam: 2.7 cm LVIDs: 2.9 cm LVPWd: 1.1 cm RVDd: 2.8 cm FS: 34.0 % LAV(MOD-bp): 41.9 ml LVAd ap4: 19.7 cm2 SV(MOD-sp4): 28.2 ml LAV(MOD-bp) Indexed: 23.5 ml/m2 LVLd ap4: 6.6 cm LAV(MOD-sp2): 33.4 ml EDV(MOD-sp4): 49.1 ml LAV(MOD-sp4): 45.6 ml EDV(sp4-el): 49.8 ml LVAs ap4: 11.7 cm2 LVLs ap4: 5.7 cm ESV(MOD-sp4): 20.9 ml ESV(sp4-el): 20.2 ml EF(MOD-sp4): 57.4 % EF(sp4-el): 59.5 % SV(sp4-el): 29.6 ml LA A4 area: 17.8 cm2 LA dimension(2D): 3.5 cm RA A4 area: 13.1 cm2 Time Measurements MV dec time: 0.34 sec Doppler Measurements & Calculations MV E max dexter: 64.4 cm/sec Lat Peak E' Dexter: 6.4 cm/sec Med Peak E' Dexter: 5.1 cm/sec MV A max edxter: 97.0 cm/sec E/E' lat: 10.1 E/E' med: 12.6 MV E/A: 0.66 Ao V2 max: 182.9 cm/sec LV V1 max: 110.4 cm/sec PA V2 max: 93.9 cm/sec Ao max P.4 mmHg LV V1 max P.9 mmHg Ao V2 mean: 113.0 cm/sec Ao mean P.8 mmHg Ao V2 VTI: 37.1 cm TR max dexter: 301.1 cm/sec TR max P.3 mmHg ECHO/Echo Complete Interpretation Summary Normal LV size. Left ventricular systolic function is normal. The estimated ejection fraction is 55 %. Apical noncompaction noted Pulmonary artery systolic pressure is 40 mmHg. The global longitudinal strain is moderately abnormal. The global longitudinal strain = -14.2% (abnormal). Ordering Physician: Tobi Aggarwal V Referring Physician: Ernesto Hensley Chi Performed By: Hannah Miranda, RDCS, RVT
== END | disposition home or self-care (01) ==
PROVIDERS: PCP Family Medicine Geriatric Medicine; Referring Provider Internal Medicine Pulmonary Disease; Visit Provider Internal Medicine Pulmonary Disease
DX: J84.112 Idiopathic pulmonary fibrosis (principal); I27.0 Primary pulmonary hypertension
CPT/HCPCS: 93306

== ENCOUNTER → 2022-03-25 | Outpatient (CLI) | payer MEDICARE, SELFPAY ==
[2022-03-25 17:07] LABS: Absolute Lymphocyte Count 1.55 X10^3/uL (0.83-4.51); Absolute Neutrophil Count 5.4 X10^3/uL (2.0-7.7); Basophil# 0.03 X10^3/uL; Basophil% 0.4 % (0-1); Eosinophil# 0.54 X10^3/uL; Eosinophils% 6.7 % (0-5); Hematocrit 38.8 % (37-47); Hemoglobin 12.2 g/dL (12.0-15.0); Lymphocyte # 1.55 X10^3/ul (0.83-4.51); Lymphocyte % 19.1 % (19-41); Mean Corp Hgb Conc 31.4 g/dL (32-36); Mean Corpuscular Hgb 29.3 pg (27.0-32.0); Monocyte# 0.55 X10^3/uL; Monocyte% 6.8 % (0-10); NRBC Flagged by Analyzer 0 % (0-5); Neutrophil % 66.4 % (47-70); Platelet Count 244 K/mm3 (150-450); RBC Distribution Width CV 14.2 % (11.6-14.6); RBC Distribution Width SD 49.3 fl (35.1-43.9); Red Blood Count 4.17 M/mm3 (4.2-5.4); White Blood Count 8.1 K/mm3 (4.4-11.0)
[2022-03-25 17:47] LABS: Vitamin D,25 Hydroxy 27.2 ng/mL
[2022-03-25 18:31] LABS: AST(SGOT) 18 U/L (15-37); Alanine Aminotransfer ALT/SGPT 32 U/L (13-56); Albumin, Serum 3.3 g/dL (3.2-5.0); Alkaline Phosphatase 100 U/L (45-117); Anion Gap 7 (5-15); BUN 9 mg/dL (7-18); BUN/Creat Ratio 11.1 RATIO (10-20); Calcium,Total 8.8 mg/dL (8.5-10.1); Chloride 103 mmol/L (98-107); Cholesterol 158 mg/dL (200); Creatinine, Serum 0.81 mg/dL (0.55-1.02); EST Glomerular Filtration Rate 73 mL/min (>60); Est Glom Filt Rate - Afr Amer 89 mL/min (>60); Globulin 3.3 g/dL (2.2-4.2); Glucose 74 mg/dL (74-106); High Density Lipoprotein 39 mg/dL; Potassium 3.3 mmol/L (3.5-5.1); Protein, Total 6.6 g/dL (6.4-8.2); Sodium Level 141 mmol/L (136-145); Thyroid Stim Hormone (TSH) 2.55 uIU/mL (0.358-3.74); Triglycerides 148 mg/dL; Very Low Density Lipoprotein 30 mg/dL (5-40)
== END | disposition home or self-care (01) ==
LOC: POLAB3 13:35
PROVIDERS: PCP Family Medicine Geriatric Medicine; Visit Provider Family Medicine Geriatric Medicine
DX: E55.9 Vitamin D deficiency, unspecified (principal); E78.5 Hyperlipidemia, unspecified; R53.83 Other fatigue
CPT/HCPCS: 36415; 80053; 80061; 82306; 84443; 85025

== ENCOUNTER → 2022-04-03 | Outpatient (CLI) | payer MEDICARE, SELFPAY ==
[2022-04-03 16:06] LABS: Absolute Lymphocyte Count 1.25 X10^3/uL (0.83-4.51); Absolute Neutrophil Count 5.6 X10^3/uL (2.0-7.7); Basophil# 0.03 X10^3/uL; Basophil% 0.4 % (0-1); Eosinophil# 0.55 X10^3/uL; Eosinophils% 6.8 % (0-5); Hematocrit 40.4 % (37-47); Hemoglobin 12.2 g/dL (12.0-15.0); Lymphocyte # 1.25 X10^3/ul (0.83-4.51); Lymphocyte % 15.5 % (19-41); Mean Corp Hgb Conc 30.2 g/dL (32-36); Mean Corpuscular Hgb 28.2 pg (27.0-32.0); Mean Corpuscular Volume 93.5 fL (81-99); Mean Platelet Vol. 9.8 fl (6.2-12.0); Monocyte# 0.57 X10^3/uL; Monocyte% 7.1 % (0-10); NRBC Flagged by Analyzer 0 % (0-5); Neutrophil % 69.6 % (47-70); Platelet Count 249 K/mm3 (150-450); RBC Distribution Width CV 14.4 % (11.6-14.6); RBC Distribution Width SD 49.3 fl (35.1-43.9); Red Blood Count 4.32 M/mm3 (4.2-5.4); White Blood Count 8.1 K/mm3 (4.4-11.0)
[2022-04-03 17:40] LABS: AST(SGOT) 23 U/L (15-37); Alanine Aminotransfer ALT/SGPT 29 U/L (13-56); Albumin, Serum 3.6 g/dL (3.2-5.0); Alkaline Phosphatase 93 U/L (45-117); Anion Gap 2 (5-15); BUN 10 mg/dL (7-18); BUN/Creat Ratio 12.1 RATIO (10-20); Calcium,Total 9.5 mg/dL (8.5-10.1); Chloride 104 mmol/L (98-107); Creatinine, Serum 0.83 mg/dL (0.55-1.02); EST Glomerular Filtration Rate 72 mL/min (>60); Est Glom Filt Rate - Afr Amer 87 mL/min (>60); Globulin 3.5 g/dL (2.2-4.2); Glucose 95 mg/dL (74-106); Protein, Total 7.1 g/dL (6.4-8.2); Sodium Level 140 mmol/L (136-145)
== END | disposition home or self-care (01) ==
LOC: POLAB3 15:24
PROVIDERS: PCP Family Medicine Geriatric Medicine; Visit Provider Family Medicine Geriatric Medicine
DX: E87.6 Hypokalemia (principal); N39.0 Urinary tract infection, site not specified
CPT/HCPCS: 36415; 80053; 85025; 87086; 87088

== ENCOUNTER → 2022-04-18 | Outpatient (CLI) | payer MEDICARE, SELFPAY ==
--- NOTE | 2022-04-18 12:40 | RAD_ITS ---
STUDY: X-RAY - ABDOMEN/PELVIS REASON FOR EXAM: Female, 72 years old. Diarrhea and pain. TECHNIQUE: AP supine and upright views of the abdomen and pelvis on 4 images. COMPARISON: None. FINDINGS: Normal visualized lung bases. Normal bowel gas pattern with air seen to the rectosigmoid. There is no demonstrated free abdominal air. The visualized liver, spleen and kidneys are grossly normal in size and morphology. Phleboliths. Normal visualized osseous structures. RAD/Abd Inc Decub and/or Erect IMPRESSION: No acute abnormality of the lower chest, abdomen or pelvis. Electronically Signed: Manas Gray, at 13:59 EST ,
== END | disposition home or self-care (01) ==
LOC: MTRAD 12:38
PROVIDERS: PCP Family Medicine Geriatric Medicine; Referring Provider Family Medicine Geriatric Medicine; Visit Provider Family Medicine Geriatric Medicine
DX: R19.7 Diarrhea, unspecified (principal)
CPT/HCPCS: 74019

== ENCOUNTER → 2022-10-15 | Outpatient (CLI) | payer MEDICARE, SELFPAY ==
[2022-10-15 12:33] LABS: Absolute Lymphocyte Count 1.68 X10^3/uL (0.83-4.51); Absolute Neutrophil Count 5.7 X10^3/uL (2.0-7.7); Basophil# 0.03 X10^3/uL; Basophil% 0.3 % (0-1); Eosinophil# 0.55 X10^3/uL; Eosinophils% 6.4 % (0-5); Hematocrit 37.7 % (37-47); Hemoglobin 11.8 g/dL (12.0-15.0); Lymphocyte # 1.68 X10^3/ul (0.83-4.51); Lymphocyte % 19.4 % (19-41); Mean Corp Hgb Conc 31.3 g/dL (32-36); Mean Corpuscular Hgb 28.9 pg (27.0-32.0); Mean Corpuscular Volume 92.2 fL (81-99); Mean Platelet Vol. 10.4 fl (6.2-12.0); Monocyte# 0.59 X10^3/uL; Monocyte% 6.8 % (0-10); NRBC Flagged by Analyzer 0 % (0-5); Neutrophil # 5.74 X10^3/uL (2.7-7.7); Neutrophil % 66.3 % (47-70); Platelet Count 262 K/mm3 (150-450); RBC Distribution Width CV 14.5 % (11.6-14.6); RBC Distribution Width SD 48.8 fl (35.1-43.9); Red Blood Count 4.09 M/mm3 (4.2-5.4); White Blood Count 8.7 K/mm3 (4.4-11.0)
[2022-10-15 13:10] LABS: Vitamin D,25 Hydroxy 39.3 ng/mL
[2022-10-15 13:23] LABS: AST(SGOT) 23 U/L (15-37); Alanine Aminotransfer ALT/SGPT 20 U/L (13-56); Albumin, Serum 3.3 g/dL (3.2-5.0); Alkaline Phosphatase 98 U/L (45-117); Anion Gap 7 (5-15); BUN 7 mg/dL (7-18); BUN/Creat Ratio 8.5 RATIO (10-20); Calcium,Total 8.6 mg/dL (8.5-10.1); Chloride 103 mmol/L (98-107); Cholesterol 162 mg/dL (200); Creatinine, Serum 0.82 mg/dL (0.55-1.02); EST Glomerular Filtration Rate 72 mL/min (>60); Est Glom Filt Rate - Afr Amer 87 mL/min (>60); Globulin 3.4 g/dL (2.2-4.2); Glucose 100 mg/dL (74-106); High Density Lipoprotein 39 mg/dL; Potassium 3.4 mmol/L (3.5-5.1); Protein, Total 6.7 g/dL (6.4-8.2); Sodium Level 139 mmol/L (136-145); Thyroid Stim Hormone (TSH) 2.55 uIU/mL (0.358-3.74); Triglycerides 100 mg/dL; Very Low Density Lipoprotein 20 mg/dL (5-40)
== END | disposition home or self-care (01) ==
LOC: MTLAB 09:28
PROVIDERS: PCP Family Medicine Geriatric Medicine; Referring Provider Family Medicine Geriatric Medicine; Visit Provider Family Medicine Geriatric Medicine
DX: I10 Essential (primary) hypertension (principal); E55.9 Vitamin D deficiency, unspecified
CPT/HCPCS: 36415; 80053; 80061; 82306; 84443; 85025

== ENCOUNTER → 2023-03-30 | Outpatient (CLI) | payer MEDICARE, SELFPAY ==
[2023-03-30 17:18] LABS: Basophil# 0.03 X10^3/uL; Basophil% 0.4 % (0-1); Eosinophils% 6.7 % (0-5); Hematocrit 38.3 % (37-47); Hemoglobin 11.6 g/dL (12.0-15.0); Lymphocyte % 18.7 % (19-41); Mean Corp Hgb Conc 30.3 g/dL (32-36); Mean Corpuscular Hgb 27.5 pg (27.0-32.0); Mean Corpuscular Volume 90.8 fL (81-99); Mean Platelet Vol. 9.7 fl (6.2-12.0); Monocyte# 0.56 X10^3/uL; Monocyte% 7.5 % (0-10); NRBC Flagged by Analyzer 0 % (0-5); Neutrophil # 4.97 X10^3/uL (2.7-7.7); Neutrophil % 66.3 % (47-70); Platelet Count 248 K/mm3 (150-450); RBC Distribution Width CV 15.5 % (11.6-14.6); RBC Distribution Width SD 51.8 fl (35.1-43.9); Red Blood Count 4.22 M/mm3 (4.2-5.4); White Blood Count 7.5 K/mm3 (4.4-11.0)
[2023-03-30 18:29] LABS: AST(SGOT) 18 U/L (15-37); Alanine Aminotransfer ALT/SGPT 20 U/L (13-56); Albumin, Serum 3.5 g/dL (3.2-5.0); Alkaline Phosphatase 94 U/L (45-117); Anion Gap 7 (5-15); BUN 9 mg/dL (7-18); BUN/Creat Ratio 11.2 RATIO (10-20); Calcium,Total 8.9 mg/dL (8.5-10.1); Chloride 104 mmol/L (98-107); Cholesterol 189 mg/dL (200); EST Glomerular Filtration Rate 74 mL/min (>60); Est Glom Filt Rate - Afr Amer 90 mL/min (>60); Globulin 3.6 g/dL (2.2-4.2); Glucose 79 mg/dL (74-106); High Density Lipoprotein 40 mg/dL; Potassium 3.7 mmol/L (3.5-5.1); Protein, Total 7.1 g/dL (6.4-8.2); Sodium Level 142 mmol/L (136-145); Thyroid Stim Hormone (TSH) 2.27 uIU/mL (0.358-3.74); Triglycerides 179 mg/dL; Very Low Density Lipoprotein 36 mg/dL (5-40)
== END | disposition home or self-care (01) ==
LOC: POLAB3 15:07
PROVIDERS: PCP Family Medicine Geriatric Medicine; Visit Provider Family Medicine Geriatric Medicine
DX: I10 Essential (primary) hypertension (principal); E55.9 Vitamin D deficiency, unspecified; E78.5 Hyperlipidemia, unspecified
CPT/HCPCS: 36415; 80053; 80061; 82306; 84443; 85025

== ENCOUNTER 2023-04-17 17:31 | Emergency (ER) | payer MEDICARE, SELFPAY ==
[2023-04-17] VITALS (8 sets, daily range): BP systolic 115–168; BP diastolic 69–99; PULSE 64–93; RESP 17–24; TEMP 36.8; O2SAT 95–100; BMI 46.1
--- NOTE | 2023-04-17 17:57 | EDS_ITS ---
HPI History of Present Illness Chief Complaint: Shortness of Breath [facility] Medical History Fatigue HTN (hypertension) IPF (idiopathic pulmonary fibrosis) Home Medications escitalopram oxalate 10 mg tablet 10 mg PO QHS 30 days ##30 06/22/17 [History Last Taken Unknown] pramipexole 0.125 mg tablet 1 mg PO QHS 05/05/18 [History Last Taken Unknown] levothyroxine 25 mcg tablet 25 mcg PO DAILY 10/22/20 [History Last Taken Unknown] dexamethasone 6 mg tablet (Decadron) 6 mg PO DAILY #7 tabs 04/16/21 [Rx Last Taken Unknown] nintedanib 150 mg capsule (Ofev) 150 mg PO BID 04/16/21 [History Last Taken Unknown] amlodipine 5 mg tablet 5 mg PO DAILY 04/17/23 [History Last Taken Unknown] nintedanib 100 mg capsule (Ofev) 100 mg PO Q12H 04/17/23 [History Last Taken Unknown] ondansetron HCl 8 mg tablet 8 mg PO BID 04/17/23 [History Last Taken Unknown] prednisone 50 mg tablet 50 mg PO DAILY #5 tabs 04/17/23 [Rx Last Taken Unknown] Allergy/AdvReac Type Severity Reaction Status Date / Time No Known Allergies Allergy Verified 04/17/23 17:32 Social History Smoking Status: Former smoker alcohol intake: never EXAM Physical Exam Const Vital Signs: 04/17/23 17:33 04/17/23 17:40 04/17/23 17:40 Temperature 98.2 F Temperature Source Temporal Pulse Rate 82 93 Respiratory Rate 22 H 21 H Respiratory Effort Short of Breath Labored Respiratory Depth Normal Respiratory Pattern Tachypnea Blood Pressure 168/82 H 157/90 H Blood Pressure Mean 110 112 Pulse Ox 99 99 Oxygen Delivery Method Nasal Cannula Nasal Cannula Nasal Cannula Oxygen Flow Rate (L/min) 4 4 4 04/17/23 17:44 04/17/23 18:25 04/17/23 18:37 Temperature 98.2 F Temperature Source Temporal Pulse Rate 84 73 Respiratory Rate 17 24 H Respiratory Effort Respiratory Depth Respiratory Pattern Tachypnea Blood Pressure 142/74 H Blood Pressure Mean 96 Pulse Ox 100 Oxygen Delivery Method Nasal Cannula Nasal Cannula Oxygen Flow Rate (L/min) 4 4 04/17/23 18:31 04/17/23 19:00 Temperature Temperature Source Pulse Rate 64 66 Respiratory Rate 21 H 18 Respiratory Effort Respiratory Depth Respiratory Pattern Blood Pressure 131/69 H 137/86 H Blood Pressure Mean 89 103 Pulse Ox 95 99 Oxygen Delivery Method Nasal Cannula Nasal Cannula Oxygen Flow Rate (L/min) 4 4 [facility] Narrative Medical decision making narrative: HISTORY OF PRESENT ILLNESS: 73-year-old female presents with shortness of breath. Notes recent sick contact (mono). Notes history of pulmonary fibrosis. States she wears 4 L at home. She notes exerting herself more with [employer] cooking being more fatigued from this. She thinks she may have mono given her excessive fatigue. She denies any chest pain. She notes dyspnea on exertion. She denies any bleeding diathesis. Denies any unilateral leg swelling The patient denies recent surgery in the last 4 weeks or immobilization in the last 3 days, denies previous diagnosis of DVT or PE, hemoptysis, unilateral leg swelling or malignancy with treatment the last 6 months or palliative. No estrogen use noted. REVIEW OF SYSTEMS: Pertinent positives: Shortness of breath Pertinent negatives: Chest pain, syncope PHYSICAL EXAM: Nursing triage notes reviewed, Vital signs reviewed Constitutional: please see mdm HENT: MMM Eyes: Pupils equal round and reactive to light, Extraocular muscles intact Neck: No stridor, no JVD, full neck ROM Lungs: diminished throughout, occasional crackles, bilateral wheezing, no increased work of breathing, no conversational dyspnea, no accessory muscle use, no nasal flaring. No respiratory distress noted Heart: Regular rate and rhythm, No murmurs, No rubs and No gallops, 2+ distal pulses (radial, femoral, posterior tibial) in all extremities Abdomen: Soft, there is no tenderness, rigidity, rebound or guarding, no obvious peritoneal signs, no palpable pulsatile abdominal masses, no auscultated abdominal bruit : No CVAT Extremities: No edema Neuro: No focal neurological deficits, cranial nerves II through XII intact, 5/5 strength in all extremities. Intact sensation to light touch in all extremities, 2+ reflexes bilateral patella tendons. Normal gait. No ataxia. Skin: No rash or lesions noted MEDICAL DECISION MAKING: Chief Complaint: Shortness of breath External records reviewed: Imaging studies reviewed: Echocardiogram from 2021 shows ejection fraction of 55% Factors affecting care: Pulmonary fibrosis, hypertension, COPD Social determinants of health: none History obtained from others: The patient's family Consults: none MDM Narrative: Patient was initially hemodynamically stable, afebrile, nontoxic-appearing. Exam with bilateral wheezing, no focal consolidative process. I considered the following differential diagnosis: Obstructive lung disease (COPD, asthma), pneumonia, COVID, flu, anemia, ACS, arrhythmia I obtained a broad lab and imaging workup to further elucidate etiology of the patient's complaints. Give the patient empiric breathing treatments given wheezing ALL IMAGES (IF OBTAINED) HAVE BEEN PERSONALLY REVIEWED AND INTERPRETED BY MYSELF. EKG with normal sinus rhythm, left axis deviation, normal normals, no STEMI CBC without leukocytosis, severe anemia, no thrombocytopenia. High-sensitivity troponin is negative, no evidence of myocardial ischemia BNP within normal limits BMP without evidence of significant electrolyte abnormalities, no anion gap, no acute kidney injury. COVID, RSV and flu A/B test are negative I have personally reviewed the patient's chest x-ray. Chest x-ray is unremarkable for pulmonary edema, pneumothorax, pneumonia or focal cardiopulmonary abnormality. The synthesis of the patient's history, physical exam, labs and images suggest COPD exacerbation. I suspect there is component of deconditioning given recent holidays and extra exertion that is producing some fatigue. Patient noted improvement in symptoms after steroids and breathing treatments. Will continue steroids. The fact that she has oxygen at home is reassuring. She is appropriate for discharge home as no acute life-limiting etiology could be ascertained. She was given a course of prednisone to follow-up with primary care physician to return if symptoms change or worsen. Monotest is pending at this time. The patient and/or family, caregivers express understanding. The patient and/or family, caregivers agrees with the plan. Shared decision making: I will have a discussion with the patient and or visitors regarding risk/benefits of further testing or admission. They will be made aware of of the risk/benefits inherent in this decision they will be given the opportunity to voice understanding. Total critical care time today provided was at least 0 minutes. This excludes separately billable procedures. Critical care time (if documented) is secondary to the patient having high probability of clinically significant/life threatening deterioration in the patient's condition which required my urgent intervention. Impression: 1. Fatigue 2. Dyspnea 3. History of idiopathic pulmonary fibrosis 4. COPD exacerbation Dispo: Discharge Lab Data Attestation: I reviewed the patient's lab results. Labs: Laboratory Results - last 24 hr 04/17/23 18:21 WBC 7.3 RBC 4.28 Hgb 12.0 Hct 38.5 MCV 90.0 MCH 28.0 MCHC 31.2 L RDW Std Deviation 50.9 H RDW Coeff of Josesito 15.4 H Plt Count 242 MPV 9.6 Immature Gran % (Auto) 0.800 Neut % (Auto) 61.5 Lymph % (Auto) 25.5 [place] % (Auto) 5.8 Eos % (Auto) 6.0 H Baso % (Auto) 0.4 Absolute Neuts (auto) 4.5 Absolute Lymphs (auto) 1.86 Nucleated RBC % 0 Sodium 142 Potassium 3.5 Chloride 103 Carbon Dioxide 35.0 H Anion Gap 4 L BUN 7 Creatinine 0.94 Estim Creat Clear Calc 39.02 Est GFR (MDRD) Af Amer 75 Est GFR (MDRD) Non-Af 62 BUN/Creatinine Ratio 7.5 L Glucose 163 H Calcium 9.6 Troponin I High Sens 9 B-Natriuretic Peptide 22.2 Radiography Chest X-Ray - ED: Read by ED Physician Diagnostic Testing: Clinical Impression(s) from Imaging Studies Chest X-Ray 04/17/23 18:15 IMPRESSION: No acute radiographic abnormalities. Electronically Signed: Sidney Acosta MD at 19:48 EST , Discharge Plan Triage Chief Complaint: Shortness of Breath ED Provider: Troy Power Dx/Rx/DC Orders Instructions: ED COPD Flare Prescriptions: New prednisone 50 mg tablet 50 mg PO DAILY Qty: 5 0RF No Action escitalopram oxalate 10 mg tablet 10 mg PO QHS 30 Days Qty: 30 Patient Comments: TABLET ONE-HALF TABLET BY MOUTH EVERY DAY FOR SIX DAYS THEN TAKE ONE TABLET EVERY DAY pramipexole 0.125 mg tablet 1 mg PO QHS levothyroxine 25 mcg tablet 25 mcg PO DAILY Ofev 150 mg capsule 150 mg PO BID dexamethasone [Decadron] 6 mg tablet 6 mg PO DAILY Qty: 7 0RF amlodipine 5 mg tablet 5 mg PO DAILY Ofev 100 mg capsule 100 mg PO Q12H ondansetron HCl 8 mg tablet 8 mg PO BID Patient Comments: TAKE 1 TABLET BY MOUTH 2YTIMES A DAYAI Primary Care Provider: Ernesto Hensley Chi Referrals: Ernesto Hensley Chi, MD [Primary Care Provider] - Activity Restrictions/Additional Instructions: Thank you for trusting us with your care today! Please take Tylenol (2 pills, 650 mg), ibuprofen (2 pills, 400 mg) every 6 hours as needed for pain and fever control. Please take prednisone daily as prescribed. Please return to the emergency department if your symptoms change or worsen. If you develop loss of consciousness, shortness of breath, focal weakness. Please follow with your primary care physician for further outpatient evaluation and management. Disposition Disposition: Home, Self Care
--- NOTE | 2023-04-17 18:15 | RAD_ITS ---
INDICATION: SOB EXAMINATION/TECHNIQUE: X-RAY - XR Chest 1 View COMPARISON: 01/21/2022. FINDINGS: The lungs are clear. The cardiomediastinal silhouette is unremarkable. No pleural effusion or pneumothorax. No acute osseous abnormalities. RAD/Chest 1 View (Portable) IMPRESSION: No acute radiographic abnormalities. Electronically Signed: Sidney Acosta MD at 19:48 EST ,
--- NOTE | 2023-04-17 18:17 | EKG12_ITS ---
Test Reason : SOB Blood Pressure : / mmHG Vent. Rate : 084 BPM Atrial Rate : 084 BPM P-R Int : 150 ms QRS Dur : 082 ms QT Int : 360 ms P-R-T Axes : 014 -40 029 degrees QTc Int : 425 ms Normal sinus rhythm Left axis deviation Nonspecific ST and T wave abnormality Abnormal ECG Confirmed by MADY HERRING, ELIZABETH ([id number]), script editor LIBORIO DAVIS ([id number]) on 04/21/2023 8:29:57 AM Referred By: Troy Power Confirmed By:ELIZABETH EARL MD
[2023-04-17 18:29] LABS: Absolute Lymphocyte Count 1.86 X10^3/uL (0.83-4.51); Absolute Neutrophil Count 4.5 X10^3/uL (2.0-7.7); Basophil# 0.03 X10^3/uL; Basophil% 0.4 % (0-1); Eosinophil# 0.44 X10^3/uL; Hematocrit 38.5 % (37-47); Lymphocyte # 1.86 X10^3/ul (0.83-4.51); Lymphocyte % 25.5 % (19-41); Mean Corp Hgb Conc 31.2 g/dL (32-36); Mean Platelet Vol. 9.6 fl (6.2-12.0); Monocyte# 0.42 X10^3/uL; Monocyte% 5.8 % (0-10); NRBC Flagged by Analyzer 0 % (0-5); Neutrophil # 4.47 X10^3/uL (2.7-7.7); Neutrophil % 61.5 % (47-70); Platelet Count 242 K/mm3 (150-450); RBC Distribution Width CV 15.4 % (11.6-14.6); RBC Distribution Width SD 50.9 fl (35.1-43.9); Red Blood Count 4.28 M/mm3 (4.2-5.4); White Blood Count 7.3 K/mm3 (4.4-11.0)
[2023-04-17] MEDS: MethylPREDNISolone 125 MG/2 ML Vial IV (18:37)
[2023-04-17] MEDS: Ipratropium/Albuterol Sulfate 3 ML AMPUL.NEB INHALATION ×2 (18:37→20:41)
[2023-04-17] MEDS: 0.9% Normal Saline (500mL Bag) 500 ML 999 ML IV (18:37)
[2023-04-17 18:50] LABS: BNP,B-Type NATRIURETIC PEPTIDE 22.2 pg/mL (0-100)
[2023-04-17 18:51] LABS: Anion Gap 4 (5-15); BUN 7 mg/dL (7-18); BUN/Creat Ratio 7.5 RATIO (10-20); Calcium,Total 9.6 mg/dL (8.5-10.1); Chloride 103 mmol/L (98-107); Creatinine, Serum 0.94 mg/dL (0.55-1.02); EST Glomerular Filtration Rate 62 mL/min (>60); Est Glom Filt Rate - Afr Amer 75 mL/min (>60); Estimated Creatinine Clearance 39.02 ml/min; Glucose 163 mg/dL (74-106); Potassium 3.5 mmol/L (3.5-5.1); Sodium Level 142 mmol/L (136-145); Troponin-I HS 9 pg/mL (3.0-54.0)
--- NOTE | 2023-04-17 21:06 | CPS ---
[2040] Additional x1 Duoneb given to pt. in ER. Pre-HR=67, RR=22 with clearer and diminished breath sounds with coarse crackles in RML and LL segments of lungs. Pre-HR=72, RR=22 with clearer breath sounds through out. Coarse crackles still noted in RML and LL segments of lungs
[2023-04-17 23:22] LABS: Internal QC Validated? YES +Cl - CLEAR BKGD; Monotest Negative (Negative)
[2023-04-17 23:23] LABS: Record Kit Lot#, Mono 13231163
== END 2023-04-17 21:35 | disposition home or self-care (01) ==
PROVIDERS: Emergency Provider Emergency Medicine; PCP Family Medicine Geriatric Medicine; Referring Provider Emergency Medicine; Visit Provider Emergency Medicine
DX: J44.1 Chronic obstructive pulmonary disease with (acute) exacerbation (principal); R53.83 Other fatigue; R06.00 Dyspnea, unspecified; I10 Essential (primary) hypertension; Z87.891 Personal history of nicotine dependence; Z79.899 Other long term (current) drug therapy
CPT/HCPCS: 71045; 80048; 83880; 84484; 85025; 86308; 87631; 93005; 94640; 96374; 99284; J7040; A4216

== ENCOUNTER 2023-04-26 03:23 | Emergency (ER) | payer MEDICARE, SELFPAY ==
[2023-04-26 03:24] VITALS: BP 151/80; PULSE 107; RESP 20; TEMP 36.1; O2SAT 97; BMI 34.9
--- NOTE | 2023-04-26 03:32 | CT_ITS ---
We are attempting to reach an attending provider to discuss findings. An addendum with communication details will be sent when the communication is complete. INDICATION: LLQ pain EXAMINATION: CT ABDOMEN AND PELVIS WITH CONTRAST - CT Abdomen And Pelvis W/ Contrast Injection TECHNIQUE: Helically acquired images were obtained of the abdomen and pelvis following IV contrast. A radiation dose optimization technique was used for this scan. IV Contrast dosage and agent: 100 mL [id number]-370 Oral contrast: None. COMPARISON: CT chest October 29, 2021, January 22, 2021, Abdominal ultrasound September 12, 2020 FINDINGS: LOWER CHEST: Bilateral basilar peripheral scarring. Mild cardiomegaly. No pericardial effusion. Moderate coronary atherosclerosis. Main pulmonary arterial enlargement relative to aorta. LIVER: Generally homogeneous with subcentimeter right hepatic cyst unchanged from January 22, 2021.. No focal mass. GALLBLADDER AND BILIARY TREE: No calcified gallstones. No gallbladder distension or wall edema. No intra- or extrahepatic biliary ductal dilation. PANCREAS: Superior pancreatic neck 2.7 cm cystic mass. No ductal dilatation or peripancreatic inflammation. SPLEEN: Normal size without focal cystic or solid mass. ADRENAL GLANDS: No nodules. KIDNEYS AND URETERS: Normal renal size and position. No hydronephrosis. PERITONEUM: No ascites or free air. No other fluid collection. BOWEL: Unremarkable stomach. Duodenal 1.4 cm diverticulum at the pancreatic head. Small bowel wall thickening. There is mild dilatation of small bowel in the left abdomen adjacent to chronic inflammation compatible mild dysmotility. Normal appendix. Sigmoid inflamed diverticulum with adjacent fat stranding, trace dependent free fluid, and prominent adjacent mesenteric free air spanning approximately 4 x 4 centimeters area. Small localized fluid and air collection posterior inferior left of the perforation measuring 3.3 x 0.9 x 3.2 cm worrisome for developing abscess, axial image 99-102. LYMPH NODES: No enlarged mesenteric or retroperitoneal lymph nodes. VESSELS: Aortic atherosclerosis without ectasia or dissection.. URINARY BLADDER: Mostly decompressed with small bladder diverticulum.. REPRODUCTIVE ORGANS: Absent uterus. Right ovary. Small size and the superior right pelvis. There is a large left ovarian mixed cystic solid mass measuring 13.4 x 10.1 x 7.8 cm. ABDOMINAL WALL: No discrete abdominal or pelvic wall hernia. BONES: No lytic or blastic abnormality. CT/Abdomen/Pelvis W IV Cont ONLY IMPRESSION: Perforated diverticulitis of the sigmoid colon with localized free air. Trace layering fluid and air posterior inferior left upper perforation worrisome for developing abscess. 13.4cm mixed cystic solid left ovarian mass. Ultrasound characterization is recommended with [employer] oncology follow-up . Pancreatic neck homogeneous 2.7 cm cystic mass, increased in size from prior exams, possibly representing pseudocyst given prior anechoic appearance however further characterization with MRI with and without IV contrast is recommended. Bilateral peripheral pulmonary scarring. Main pulmonary arterial enlargement as can be seen with pulmonary hypertension. Electronically Signed: Jose Rene MD at 5:17 EST Reading Location ID and State: [facility] / [place] Tel , Service support ,
--- NOTE | 2023-04-26 03:32 | EKG12_ITS ---
Test Reason : PALPS Blood Pressure : / mmHG Vent. Rate : 104 BPM Atrial Rate : 104 BPM P-R Int : 138 ms QRS Dur : 080 ms QT Int : 352 ms P-R-T Axes : 029 -28 027 degrees QTc Int : 462 ms Sinus tachycardia with Premature atrial complexes with Aberrant conduction Nonspecific ST and T wave abnormality Abnormal ECG Confirmed by MADY HERRING, ELIZABETH ([id number]), film or videotape editor YENIFER SANDERS ([id number]) on 04/28/2023 9:34:29 AM Referred By: Confirmed By:ELIZABETH EARL MD
--- NOTE | 2023-04-26 03:34 | EDS_ITS ---
HPI History of Present Illness Chief Complaint: Abd Pain Informant: patient Onset/Context/Timing Onset: Yesterday Context: Gradual Onset Narrative Narrative: Patient presents secondary to left lower quadrant abdominal pain. Pain reported came on gradually last evening as she was supposed to go to a birthday constitution party. It is worsened throughout the night and she presents at 3:30 AM for evaluation. She has a history of pulmonary fibrosis and wears 4 L of oxygen at baseline. She denies any prior abdominal surgeries. She denies vomiting or diarrhea. She denies urinary symptoms. [facility] Medical History (Updated 04/26/23 @ 08:[address] Odilia Veras MD) Fatigue HTN (hypertension) IPF (idiopathic pulmonary fibrosis) Home Medications escitalopram oxalate 10 mg tablet 10 mg PO QHS 30 days ##30 06/22/17 [History Last Taken Unknown] pramipexole 0.125 mg tablet 1 mg PO QHS 05/05/18 [History Last Taken Unknown] levothyroxine 25 mcg tablet 25 mcg PO DAILY 10/22/20 [History Last Taken Unknown] nintedanib 150 mg capsule (Ofev) 150 mg PO BID 04/16/21 [History Last Taken Unknown] amlodipine 5 mg tablet 5 mg PO DAILY 04/17/23 [History Last Taken Unknown] nintedanib 100 mg capsule (Ofev) 100 mg PO Q12H 04/17/23 [History Last Taken Unknown] ondansetron HCl 8 mg tablet 8 mg PO BID 04/17/23 [History Last Taken Unknown] Allergy/AdvReac Type Severity Reaction Status Date / Time No Known Allergies Allergy Verified 04/17/23 17:32 Social History Smoking Status: Former smoker alcohol intake: never ROS ROS ED Constitutional Constitutional ED: Denies chills or fever(s) Eyes Eyes: Denies discharge from eye(s) ENT ENT ED: Denies discharge from eye(s), rhinorrhea or sore throat Cardiovascular Cardiovascular: Denies chest pain or palpitations Respiratory/Chest Respiratory/Chest: Reports dyspnea; Denies cough Gastrointestinal Gastrointestinal: Reports abdominal pain; Denies diarrhea, nausea or vomiting Genitourinary Genitourinary ED: Denies dysuria Musculoskeletal Musculoskeletal: Denies back pain or extremity pain Integumentary Denies Abrasions or rash Neurologic Neurologic: Denies headache(s) or weakness Psychiatric Psychiatric: Denies anxiety or depression Allergic/Immunologic Allergic/Immunologic ED: Denies lip swelling or urticaria EXAM Physical Exam Const Vital Signs: 04/26/23 03:24 04/26/23 03:29 04/26/23 06:53 Temperature 97 F L Temperature Source Temporal Pulse Rate 107 H 87 Respiratory Rate 20 H 17 Respiratory Effort Short of Breath Respiratory Pattern Tachypnea Blood Pressure 151/80 H 123/78 H Blood Pressure Mean 103 93 Pulse Ox 97 100 Oxygen Delivery Method Room Air Nasal Cannula Oxygen Flow Rate (L/min) 4 Positive well nourished and well developed General Appearance ED: well developed HEENT Reports moist mucous membranes Eyes EOMs intact bilaterally Chest Wall inspection of chest normal and palpation of chest normal Resp normal respiratory effort Resp Narrative: Diminished breath sounds bilateral bases. Cardio regular rhythm Rate: tachycardic GI GI Narrative: Abdomen soft with moderate diffuse tenderness, worse in the left lower quadrant. Hypoactive bowel sounds. Extremity normal to inspection Neuro oriented x3 Neuro Narrative: No focal neurologic deficit Psych mental status grossly normal Skin no rashes or lesions noted MDM MDM MDM Narrative Medical decision making narrative: Patient placed on immunology specialist. IV line initiated. EKG obtained to evaluate for cardiac arrhythmia/ischemia. Chest x-ray obtained to evaluate for acute lung pathology, cardiac size, or mediastinal abnormality. Labwork obtained to evaluate for leukocytosis, anemia, and electrolyte derangement. CT scan of the abdomen pelvis with IV contrast obtained to evaluate for possible bowel obstruction, diverticulitis, kidney stone. History & Record Review Discussion w/independent historian: Patient and Significant other Additional record(s) reviewed:: Prior ED visit and Prior labs Lab Data Attestation: I reviewed the patient's lab results. Labs: Laboratory Results - last 24 hr 04/26/23 03:39 WBC 20.1 H RBC 4.39 Hgb 12.2 Hct 38.6 MCV 87.9 MCH 27.8 MCHC 31.6 L RDW Std Deviation 50.8 H RDW Coeff of Josesito 15.9 H Plt Count 224 MPV 9.9 Immature Gran % (Auto) 1.000 H Neut % (Auto) 84.2 H Lymph % (Auto) 5.2 L Ripley % (Auto) 8.9 Eos % (Auto) 0.4 Baso % (Auto) 0.3 Absolute Neuts (auto) 16.9 H Absolute Lymphs (auto) 1.05 Nucleated RBC % 0 Differential Comment SCANNED Diff Path Review May foll Sodium 140 Potassium 3.7 Chloride 102 Carbon Dioxide 30.0 Anion Gap 8 BUN 12 Creatinine 1.00 Estim Creat Clear Calc 36.68 Est GFR (MDRD) Af Amer 70 Est GFR (MDRD) Non-Af 57 L BUN/Creatinine Ratio 12.0 Glucose 150 H Calcium 8.3 L Total Bilirubin 1.30 H Direct Bilirubin 0.36 H AST 16 ALT 25 Alkaline Phosphatase 88 Total Protein 6.4 Albumin 3.0 L Globulin 3.4 Radiography Chest X-Ray - ED: 1 View, Read by ED Physician, Chronic Changes and No Infiltrates Diagnostic Testing: Clinical Impression(s) from Imaging Studies Abdomen/Pelvis CT 04/26/23 03:32 IMPRESSION: Perforated diverticulitis of the sigmoid colon with localized free air. Trace layering fluid and air posterior inferior left upper perforation worrisome for developing abscess. 13.4cm mixed cystic solid left ovarian mass. Ultrasound characterization is recommended with [employer] oncology follow-up . Pancreatic neck homogeneous 2.7 cm cystic mass, increased in size from prior exams, possibly representing pseudocyst given prior anechoic appearance however further characterization with MRI with and without IV contrast is recommended. Bilateral peripheral pulmonary scarring. Main pulmonary arterial enlargement as can be seen with pulmonary hypertension. Electronically Signed: Jose Rene MD at 5:17 EST Reading Location ID and State: [facility] / [place] Tel , Service support , ADDENDUM: 04/26/23 0528 IMPRESSION: Perforated diverticulitis of the sigmoid colon with localized free air. Trace layering fluid and air posterior inferior left upper perforation worrisome for developing abscess. 13.4cm mixed cystic solid left ovarian mass. Ultrasound characterization is recommended with [employer] oncology follow-up . Pancreatic neck homogeneous 2.7 cm cystic mass, increased in size from prior exams, possibly representing pseudocyst given prior anechoic appearance however further characterization with MRI with and without IV contrast is recommended. Bilateral peripheral pulmonary scarring. Main pulmonary arterial enlargement as can be seen with pulmonary hypertension. N.B. : The above Results were Read Back by Jose Rene MD to Odilia Veras MD, and understanding confirmed on 04/26/2023 05:21:51 (ET). Electronically Signed: Jose Rene MD at 5:17 EST , ADDENDUM: 04/26/23 0529 IMPRESSION: undefined Chest X-Ray 04/26/23 04:08 IMPRESSION: Cardiomegaly without florid edema or focal consolidation. Chronic elevation of the right hemidiaphragm limiting right basilar evaluation. Electronically Signed: Jose Rene MD at 4:20 EST , EKG Initial EKG: Attestation: I personally reviewed and interpreted this EKG as follows: Interpretation: Sinus Tachycardia (Sinus tach at 104 with no acute ischemia.) Treatment and Re-Evaluation :: CBC was a white count of 20.1 with 84% neutrophils. Hemoglobin is 12.2. Chemistry studies unremarkable with normal renal function. Glucose is 150. Total bili is slightly elevated at 1.3 and direct bili is 0.36. Portable chest x-ray per my interpretation was chronic changes with no focal infiltrate. Radiology interpretation is reviewed. They feel she has cardiomegaly without significant edema. There is chronic elevation of the right hemidiaphragm. CT scan of the abdomen pelvis with IV contrast obtained. There is evidence of perforated diverticulitis of the sigmoid colon with localized free air. There is trace layering fluid and air near the perforation concerning for developing abscess. There is also a 13 cm mixed cystic solid left ovarian mass. This will require follow-up. There is a pancreatic neck 2.7 cm cystic mass which was present on prior studies but slightly larger in size on today's exam. I have been called by Dr. Slater who had seen the patient's images. Given her underlying pulmonary disease she does not feel patient is a good candidate for surgical intervention here. She requested the patient be transferred. Patient has been given Zosyn. She has been given multiple doses of pain medication. She has remained hemodynamically stable. Patient has been accepted in transfer at [facility] in [place]. We are awaiting transport at this time. Discharge Plan Triage Chief Complaint: Abd Pain Other Complaint: Palpitations ED Provider: Odilia Veras Dx/Rx/DC Orders Clinical Impression: Mass of left ovary, Diverticulitis of colon with perforation, Colonic diverticular abscess, Pancreatic cyst Prescriptions: No Action escitalopram oxalate 10 mg tablet 10 mg PO QHS 30 Days Qty: 30 Patient Comments: TABLET ONE-HALF TABLET BY MOUTH EVERY DAY FOR SIX DAYS THEN TAKE ONE TABLET EVERY DAY pramipexole 0.125 mg tablet 1 mg PO QHS levothyroxine 25 mcg tablet 25 mcg PO DAILY Ofev 150 mg capsule 150 mg PO BID amlodipine 5 mg tablet 5 mg PO DAILY Ofev 100 mg capsule 100 mg PO Q12H ondansetron HCl 8 mg tablet 8 mg PO BID Patient Comments: TAKE 1 TABLET BY MOUTH 2YTIMES A DAYAI Primary Care Provider: Ernesto Hensley Chi Referrals: Ernesto Hensley Chi, MD [Primary Care Provider] - Disposition Disposition: Acute Care Hospital Discharge Location: [facility]
--- OUTSIDE RECORDS SUMMARY | 2023-04-26 03:38 | XMS RPT_ITS | CCD ---
Author Name Unknown Address [address] [place] [address] Organization [facility] Care Team Providers Care Account Leader Name Role Phone Ramses Cervantes Unavailable Reggie Garcia Unavailable Unavailable Unavailable Primary Care Provider ABDIRAHMAN Foster Attending Unavailable ABDIRAHMAN ROBERTS Admitting Unavailable Medications Completed/Discontinued Medications Medication Drug Class(es) Dates Sig (Normalized) Sig (Original) amLODIPine 5 mg oral tablet (1 source) Dihydropyridine Calcium Channel Citlali take 1 tablet by mouth once daily amLODIPine (NORVASC) 5 mg tablet Take 5 mg by mouth once daily. 0 Active Problems Active Problems Problem Classification Problem Date Documented Da te Episodic/Chronic Essential hypertension (4 sources) Hypertensive disorder; Translations: [Essential (primary) hypertension] Onset: 12-12-2016 Resolved: 12-12-2016 12-12-2016 Chronic Pulmonary heart disease (3 sources) Pulmonary hypertension; Translations: [Pulmonary hypertension, unspecified] Onset: 04-02-2022 Chronic Unclassified (1 source) Unknown / UNK(Unknown) Onset: 01-13-2018 Past or Other Problems Problem Classification Problem Date Documented Da te Episodic/Chronic Administrative/social admission (2 sources) Person with feared health complaint in whom no diagnosis is made; Translations: [Person with feared health complaint in whom no diagnosis is made] Onset: 12-12-2016 12-12-2016 Episodic Other connective tissue disease (3 sources) Soft tissue lesion of shoulder region; Translations: [Bursopathy, unspecified] Onset: 05-15-2010 05-15-2010 Episodic Unclassified (1 source) J20.9 Onset: 01-13-2018 Results Test Name Value Interpretation Reference Range Facil ity Vital Signs Date Time Vital Sign Value Performing Clinician Faci litdavid 04-02-2022 10:07-0500 Diastolic blood pressure 85 mm[Hg] Abdirahman Roberts MD Work Phone: [facility] 04-02-2022 10:07-0500 Heart rate 75 /min Abdirahman Roberts MD Work Phone: [facility] 04-02-2022 10:07-0500 Respiratory rate 18 /min Abdirahman Roberts MD Work Phone: [facility] 04-02-2022 10:07-0500 SaO2% (BldA) [Mass fraction] 97 % Abdirahman Roberts MD Work Phone: [facility] 04-02-2022 10:07-0500 Systolic blood pressure 154 mm[Hg] Abdirahman Roberts MD Work Phone: [facility] 04-02-2022 09:00-0500 Body height 154.9 cm Abdirahman Roberts MD Work Phone: [facility] 04-02-2022 09:00-0500 Body weight 79.38 kg Abdirahman Roberts MD Work Phone: [facility] 04-02-2022 08:02-0500 Body temperature 98.2 [degF] Abdirahman Roberts MD Work Phone: [facility] 12-12-2016 12:37-0400 BMI (Body Mass Index) 30.23 kg/m2 Ramses [facility] Work Phone: 12-12-2016 12:37-0400 Body Temperature 98.5 [degF] Ramses [facility] Work Phone: 12-12-2016 12:37-0400 BP Diastolic 92 mm[Hg] Ramses [facility] Work Phone: 12-12-2016 12:37-0400 BP Diastolic 84 mm[Hg] Ramses [facility] Work Phone: 12-12-2016 12:37-0400 BP Systolic 122 mm[Hg] Ramses [facility] Work Phone: 12-12-2016 12:37-0400 BP Systolic 124 mm[Hg] Ramses Arndt [facility] Work Phone: 12-12-2016 12:37-0400 Height 154.94 [address] [facility] Work Phone: 12-12-2016 12:37-0400 Pulse (Heart Rate) 97 /min Ramses Arndt [facility] Work Phone: 12-12-2016 12:37-0400 Respiratory Rate 14 /min Ramses Arndt [facility] Work Phone: 12-12-2016 12:37-0400 Weight 72.58 kg Ramses Arndt [facility] Work Phone: Encounters Encounter Date Encounter Type Care Provider Facility Start: 04-02-2022 ambulatory ABDIRAHMAN ROBERTS Facilit y:[facility] Start: 04-02-2022 End: 04-02-2022 Subsequent hospital visit by physician Abdirahman Roberts MD Work Phone: [employer] Procedures Date Procedure Procedure Detail Performing Clinician Start: 04-02-2022 End: 04-02-2022 O2 SATURATION (POC) Abdirahman Roberts MD Work Phone: Plan of Treatment Date Care Activity Detail Author Start: 12-19-2021 Influenza vaccination INFLUENZA (#1) [facility] Start: 04-20-2021 ADVANCE DIRECTIVE DISCUSSION ADVANCE DIRECTIVE DISCUSSION [facility] Start: 04-20-2021 DEPRESSION ASSESSMENT DEPRESSION ASSESSMENT [facility] Start: 09-05-2020 COVID-19 VACCINE (3 - Booster for Moderna series) COVID-19 VACCINE (3 - Booster for Moderna series) [facility] Start: 12-12-2016 End: 12-12-[address] [facility] Work Phone: Start: 2013 BONE DENSITY BONE DENSITY [facility] Start: 2013 PNEUMOCOCCAL: 65+ (1 - PCV) PNEUMOCOCCAL: 65+ (1 - PCV) [facility] Start: 1998 SHINGRIX VACCINE (1 of 2) SHINGRIX VACCINE (1 of 2) [facility] Start: 1993 COLOGUARD (FIT-DNA) COLOGUARD (FIT-DNA) [facility] Start: 1993 Colonoscopy COLONOSCOPY [facility] Start: 1993 COLORECTAL CANCER SCREENING COLORECTAL CANCER SCREENING [facility] Start: [address] COLONOGRAPHY [facility] Start: 1993 DIABETES SCREEN DIABETES SCREEN [facility] Start: 1993 FECAL OCCULT BLOOD FECAL OCCULT BLOOD [facility] Start: 1993 LIPID SCREEN LIPID SCREEN [facility] Start: 1993 SIGMOIDOSCOPY SIGMOIDOSCOPY [facility] Start: 1988 Mammography MAMMOGRAM [facility] Start: 1967 Urine microalbumin profile DTAP,TDAP,TD (1 - Tdap) [facility] Start: 1966 HEPATITIS C SCREENING HEPATITIS C SCREENING [facility] Start: 1948 COVID-19 VACCINE (#1) COVID-19 VACCINE (#1) [facility] End: 04-02-2022 RIGHT HEART CATHETERIZATION RIGHT HEART CATHETERIZATION BIC STAT One Time for 1 Occurrences starting 04/02/2022 until 04/02/2022 [facility] Work Phone: Payers Date Payer Category Payer Unknown [employer] PPO [id number] 2022-2022 [address] [place] [address] PPO [id number] 2019 Medicare HU[employer]NA MEDICARE HU[employer]NA MEDICARE PPO [id number] 2019-Present [phone] [address] [address] [place] [address] PPO [id number] 2019 Private Health Insurance [id number] Unknown [id number] Social History Date Type Detail Facility Tobacco smoking stat [facility] Tobacco smoking consumption unknown [facility] Start: 1950 Sex Assigned At Not on file C [facility] Surgical operation note 04-02-2022 Operative Report - Abdirahman Roberts MD - 04/02/2022 9:06 AM EST Note Date & Type Note Facility 04-02-2022 Surgical operatio n note Images from the original note were not included. Patient Name: Ning Cooper Patient Date of Procedure: April 02, 2022 Time of Procedure: 9:47 AM UNIVERSAL PROTOCOL / SAFETY CHECKLIST Procedure to be performed: Right Heart Catheterization Sign in Communication: completed Time Out: Team Confirms the Correct Patient, Correct Procedure, Correct Site and Site Marking, Correct Position (if applicable). Time: 9:47 AM Affirmation of Time Out: YES Sign Out Discussion: Completed Procedure start time: 9:12 AM Procedure end time: 9:45 AM Staff involved: Abdirahman Roberts MD Procedure(s): Right Heart Catheterization. Right Heart Catheterization Indications: Pulmonary Hypertension Pre Procedure Diagnosis: Pulmonary Hypertension Post Procedure Diagnosis: {Pulmonary Arterial Hypertension Medications: NOne Access site: Right internal jugular vein Baltimore Poly size: 7.0 F. Anesthesia: Lidocaine 1% Procedure Narrative: Consent was obtained. Time out taken. Performed at procedure room in G61. Under sterile condition, lidocaine 1 % (5 ml) was applied and under US guidance a 7.0 F introducer was inserted without difficulty. Wire was noted to be located in the SVC under fluoroscopy. A Baltimore-Poly catheter was advanced to the right pulmonary artery without difficulties (RA, RV, PA pressures were measured). Wedge was obtained and confirmed to be appropriate by fluoroscopy (stable catheter) and blood gas analysis. Mixed venous blood was obtained for indirect Karan determination. CO was determined by thermodilution and indirect Karan methodology. Nitric Oxide testing was performed with 40ppm for 5 mins. Pressures were re-assessed and listed below Disposition: Patient was discharged in stable condition. RHC determinations Determinations Result Rhythm NSR Inspired fraction of oxygen 31.00 Oxygen flow 3.00 SpO2 100.00 Systolic BP 165.00 Diastolic BP 92.00 Mean BP 116.33 Heart Rate 80.00 Height 154.90 Weight 79.40 Body surface area 1.78 Body mass index 33.09 Right atrial pressure (mean) 10.00 Right atrial pressure (mean) peak v wave (end-expiration) NA Right ventricular systolic pressure 50.00 Right ventricular diastolic pressure 10.00 Systolic pulmonary artery pressure 52.00 Mean pulmonary artery pressure 37.00 Diastolic pulmonary artery pressure 30.00 Pumonary artery pulse pressure 22.00 Pulmonary artery occlusion pressure (mean) 14.00 Pulmonary artery occlusion pressure (end-expiration) mid a wave 25.00 Pulmonary artery occlusion pressure (end-expiration) peak v wave NA Diastolic pulmonary gradient 5.00 Transpulmonary gradient 12.00 Pulmonary artery capacitance 3.65 Cardiac output (thermodilution) 6.43 Cardiac index (thermodilution) 3.60 Cardiac output (indirect KARAN) 6.00 Cardiac index (indirect KARAN) 3.36 Systemic vascular resistance 1322.97 Stroke volume 80.38 Stroke volume index 45.03 Right ventricular stroke work index 16.54 Pulmonary vascular resistance 1.87 Hemoglobin (mixed venous) 11.40 Arterial oxyhemoglobin 100.00 Mixed venous oxyhemoglobin 76.00 Lactic acid (arterial) NA Abbreviated version Right atrial pressure (mean) 10.00 Mean pulmonary artery pressure 37.00 Pulmonary artery occlusion pressure (end-expiration) mid a wave 25.00 Cardiac index (thermodilution) 3.60 Pulmonary vascular resistance 1.87 Mixed venous oxyhemoglobin 76.00 Step-Up SaO2's SpO2 100.00 SaO2 RA 76.00 SaO2 RV NA SaO2 PA 74.00 SaO2 PAOP 87.00 Mean Values (Non-end expiratory values) Systolic pulmonary artery pressure 45.00 Mean pulmonary artery pressure 25.00 Diastolic pulmonary artery pressure 15.00 Pumonary artery pulse pressure 30.00 Pulmonary artery occlusion pressure (mean) 14.00 Cardiac output (thermodilution) 6.43 Cardiac index (thermodilution) 3.60 Pulmonary vascular resistance 1.71 Nitric Oxide / Vasodilatory Testing (End-expiratory values) Systolic pulmonary artery pressure 52.00 Mean pulmonary artery pressure 37.00 Diastolic pulmonary artery pressure 30.00 Pumonary artery pulse pressure 22.00 Pulmonary artery occlusion pressure (mean) 14.00 Pulmonary artery occlusion pressure (end-expiration) mid a wave 20.00 Pulmonary artery occlusion pressure (end-expiration) peak v wave NA Cardiac output (thermodilution) 5.84 Cardiac index (thermodilution) 3.27 Pulmonary vascular resistance 2.91 Waveforms: Right Atrial: Right Ventricle: Pulmonary Artery: Pulmonary Arterial Wedge/Occlusion Pressure (PAWP) Estimated Blood Loss: Scant Specimens: Mixed venous blood gases. Complications: None. Introducer removed without complications. Pressure applied for 10 minutes. No Bleeding. Condition of Patient After Procedure: stable Summary: Unspecified Pulmonary hypertension (mPAP > 20, PVR < 3) with preserved cardiac index. Negative nitric oxide response. Patient with marked swings in intrathoracic pressure (suspect 2/2 underlying pulmonary fibrosis) and thus documented mean pressures (may be more accurate then end-expiratory in setting of pulmonary fibrosis). Both end-expiratory and mean values though maintaining PVR < 3.0 indicating absence of significant precapillary PAH Plan: F/U with Dr Salazar. Low salt in the diet. Ongoing management of pulmonary fibrosis Uncertain if any benefit with Tyvaso given lack of precapillary PAH (PVR < 3.0) documented in this encounter [facility] Note 04-01-2022 Telephone Encounter - Reshma Patterson APRN.RIMA - 04/01/2022 10:29 AM EST Note Date & Type Note Facility 04-01-2022 Miscellaneous Notes Formattin g of this note might be different from the original. Attempted to phone pt regarding upcoming RHC no answer documented in this encounter [facility] Note 03-25-2022 Telephone Encounter - Dipti Ann - 03/25/2022 1:28 PM ESTTelephone Encounter - Abdirahman Roberts MD - 03/25/2022 10:35 AM ESTTelephone Encounter - Mattie Griggs - 03/25/2022 9:30 AM EST Note Date & Type Note Facility 03-25-2022 Miscellaneous Notes Formattin g of this note might be different from the original. I called pt to schedule her RHC. Please add her to the schedule 04/02 @ 9am. Dipti Ann FYI. Please schedule FAVIO AC Summary: Heart Cath referral Patient called today inquiring about her referral to Dr. Roberts for her right heart cath. She stated the referral is from Dr. Aggarwal She would like to know if we received her information and would like to schedule as soon as possible. She requested someone call her and update her on the scheduling process. Mattie Griggs documented in this encounter [facility] Evaluation note Note Date & Type Note Facility documented in this encounter [facility] Evaluation note Note Date & Type Note Facility documented in this encounter [facility] Summary Purpose Family History No Family History Records FoundNo Family History Records FoundNo Family History Records Found Advance Directives No Advanced Directives Records FoundNo Advanced Directives Records FoundNo Advanced Directives Records Found Additional Source Comments INFORMATION SOURCE (unrecogn ized section and content) DATE CREATED AUTHOR AUTHOR'S ORGANIZ ATION 03/26/2022 [facility] DATE CREATED AUTHOR AUTHOR'S ORGANIZ ATION 04/10/2022 [facility] Source Comments (unrecognize d section and content) In the event this informatio n is protected by the Federal Confidentiality of Alcohol and Drug Abuse Patient Records regulations: The Federal rules restrict any use of the information to criminally investigate or prosecute any alcohol or drug abuse patient.[facility] the event this information is protected by the Federal Confidentiality of Alcohol and Drug Abuse Patient Records regulations: The Federal rules restrict any use of the information to criminally investigate or prosecute any alcohol or drug abuse patient.[facility] the event this information is protected by the Federal Confidentiality of Alcohol and Drug Abuse Patient Records regulations: The Federal rules restrict any use of the information to criminally investigate or prosecute any alcohol or drug abuse patient.[facility] Reason for Visit (unrecogniz ed section and content) 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 This clinical summary was aggregated from multiple sources. Caution should be exercised in using it in the provision of clinical care. This summary normalizes information from multiple sources, and as a consequence, information in this document may materially change the coding, format and clinical context of patient data. In addition, data may be omitted in some cases. CLINICAL DECISIONS SHOULD BE BASED ON THE PRIMARY CLINICAL RECORDS. [employer] [facility]. provides no warranty or guarantee of the accuracy or completeness of information in this document.
[2023-04-26] MEDS: fentaNYL 100 MCG/2 ML Ampul 25 MCG IV (03:39)
[2023-04-26] MEDS: Ondansetron 4 MG/2 ML Vial IV (03:39)
[2023-04-26 03:43] LABS: Absolute Lymphocyte Count 1.05 X10^3/uL (0.83-4.51); Absolute Neutrophil Count 16.9 X10^3/uL (2.0-7.7); Basophil# 0.06 X10^3/uL; Basophil% 0.3 % (0-1); Eosinophil# 0.09 X10^3/uL; Eosinophils% 0.4 % (0-5); Hematocrit 38.6 % (37-47); Hemoglobin 12.2 g/dL (12.0-15.0); Lymphocyte # 1.05 X10^3/ul (0.83-4.51); Lymphocyte % 5.2 % (19-41); Mean Corp Hgb Conc 31.6 g/dL (32-36); Mean Corpuscular Hgb 27.8 pg (27.0-32.0); Mean Corpuscular Volume 87.9 fL (81-99); Mean Platelet Vol. 9.9 fl (6.2-12.0); Monocyte# 1.78 X10^3/uL; Monocyte% 8.9 % (0-10); NRBC Flagged by Analyzer 0 % (0-5); Neutrophil # 16.92 X10^3/uL (2.7-7.7); Neutrophil % 84.2 % (47-70); POSITIVE DIFFERENTIAL YES; Platelet Count 224 K/mm3 (150-450); RBC Distribution Width CV 15.9 % (11.6-14.6); RBC Distribution Width SD 50.8 fl (35.1-43.9); Red Blood Count 4.39 M/mm3 (4.2-5.4); White Blood Count 20.1 K/mm3 (4.4-11.0)
[2023-04-26 03:44] LABS: Differential Indicated SCAN CRITERIA MET
[2023-04-26 03:58] LABS: Differential Comment SCANNED
[2023-04-26 04:01] LABS: AST(SGOT) 16 U/L (15-37); Alanine Aminotransfer ALT/SGPT 25 U/L (13-56); Alkaline Phosphatase 88 U/L (45-117); Anion Gap 8 (5-15); BUN 12 mg/dL (7-18); Bilirubin, Direct 0.36 mg/dL (0.00-0.30); Calcium,Total 8.3 mg/dL (8.5-10.1); Chloride 102 mmol/L (98-107); EST Glomerular Filtration Rate 57 mL/min (>60); Est Glom Filt Rate - Afr Amer 70 mL/min (>60); Estimated Creatinine Clearance 36.68 ml/min; Globulin 3.4 g/dL (2.2-4.2); Glucose 150 mg/dL (74-106); Potassium 3.7 mmol/L (3.5-5.1); Protein, Total 6.4 g/dL (6.4-8.2); Sodium Level 140 mmol/L (136-145)
--- NOTE | 2023-04-26 04:08 | RAD_ITS ---
INDICATION: sob EXAMINATION/TECHNIQUE: X-RAY - XR Chest 1 View COMPARISON: Chest radiograph April 17, 2023. Chest CT October 29, 2021. FINDINGS: LINES/DEVICES: None. LUNGS: Chronic elevated right hemidiaphragm. No consolidation, florid edema or effusion. No pneumothorax. MEDIASTINUM AND CARDIOVASCULAR STRUCTURES: Cardiomegaly with prominent pericardial fat. BONES AND SOFT TISSUES: Unremarkable. RAD/Chest 1 View (Portable) IMPRESSION: Cardiomegaly without florid edema or focal consolidation. Chronic elevation of the right hemidiaphragm limiting right basilar evaluation. Electronically Signed: Jose Rene MD at 4:20 EST ,
[2023-04-26] MEDS: 0.9% Normal Saline (1000mL) 1,000 ML 150 ML IV (04:23)
[2023-04-26] MEDS: fentaNYL 100 MCG/2 ML Ampul 50 MCG IV (05:44)
[2023-04-26] MEDS: Piperacil/Tazobactam 3.375 GM in 0.9% Normal Saline (50mL MB+) 50 ML IV (05:45)
--- NOTE | 2023-04-26 06:47 | ED.RN ---
This RN wasted too much fentanyl and gave 25mcg for her second dose. Another vial pulled and wasted with Kim RN, given another 25mcg to equal 50mcg of fentanyl to equal Dr. Veras order.
[2023-04-26 06:53] VITALS: BP 123/78; PULSE 87; RESP 17; O2SAT 100
[2023-04-26] MEDS: Morphine 4 MG/ML Syringe IV (07:15)
--- NOTE | 2023-04-26 07:25 | NURSING ---
called [facility] about transfer. waiting on activity specialist and gen surgery to return call
--- NOTE | 2023-04-26 07:30 | NURSING ---
GEN SURGERY [facility], FOR DR FREEDMAN
[2023-04-26 08:56] VITALS: BP 123/76; PULSE 79; RESP 18; TEMP 36.6; O2SAT 100
--- NOTE | 2023-04-26 09:26 | ED.RN ---
nurse report called to lamar gomez given to nurse Calderon.
[2023-04-27 12:11] LABS: Pathologist Review Reviewed
== END 2023-04-26 09:10 | disposition short-term general hospital (02) ==
PROVIDERS: Emergency Provider Emergency Medicine; PCP Family Medicine Geriatric Medicine; Visit Provider Emergency Medicine
DX: N83.8 Other noninflammatory disorders of ovary, fallopian tube and broad ligament (principal); K57.32 Diverticulitis of large intestine without perforation or abscess without bleeding; K86.2 Cyst of pancreas; Z87.891 Personal history of nicotine dependence; Z79.899 Other long term (current) drug therapy
CPT/HCPCS: 71045; 74177; 80048; 80076; 85025; 93005; 96365; 96366; 96375; 96376; 99285; J7030; Q9967; A4216; J2405

== ENCOUNTER → 2023-05-18 | Outpatient (CLI) | payer MEDICARE, SELFPAY ==
--- OUTSIDE RECORDS SUMMARY | 2023-05-18 15:27 | XMS RPT_ITS | CCD ---
Author Name Unknown Address [address] [place] [address] Organization [facility] Care Team Providers Care Hand Hardener Name Role Phone Ramses Cervantes Unavailable Reggie Garcia Unavailable Unavailable Unavailable Primary Care Provider UnavailABDIRAHMAN Lee Attending Unavailable ABDIRAHMAN BALL Admitting Unavailable Tatiana, Hussain Chi Primary Care Provider ODILIA FREEDMAN Referring Unavailable MIGUE OCONNELL Admitting Unavailnathalie e TATIANA, HUSSAIN CHI Primary Care Unavailable JOSÉ LEAL Attending Unavailable FAB WILBURN Consulting Unavail able Mark Arisa MD Unavailable [phone] Tatiana HERRING, Hussain-Ming Primary Care Provider HUSSAIN SIMPSON-MING Referring Unavailable TATIANA, HUSSAIN-CHI Primary Care Unavailable MARK ARIAS Unavailable Allergies Allergy Classification Reported Allergen(s) Allergy Type Date of Onset Reaction(s) Facility (1 source) Piperacillin / tazobactam; Translations: [PIPERACILLIN-TRINY OBACTAM] Drug Allergy 04-30-2023 [facility] Repository (1 source) Piperacillin Sod-Tazobactam So Drug Allergy 04-30-2023 [facility] Medications Current Medications Medication Drug Class(es) Dates Sig (Normalized) Sig (Original) amLODIPine 5 mg oral tablet (3 sources) Dihydropyridine Calcium Channel Citlali take 1 tablet by mouth in the morning amLODIPine (Norvasc) 5 MG tablet Take 5 mg by mouth in the morning. 0 Active Completed/Discontinued Medications Medication Drug Class(es) Dates Sig (Normalized) Sig (Original) acetaminophen 300 mg / codeine phosphate 30 mg oral tablet (1 source) Opioid Agonist Start: 03-02-2023 take 1 tablet by mouth once daily as needed for pain acetaminophen-cod eine (TYLENOL-COD #3) 300-30 mg per tablet Take 1 tablet by mouth once daily as needed for pain. 0 03/02/2023 Suspended Problems Active Problems Problem Classification Problem Date Documented Da te Episodic/Chronic Diverticulosis and diverticulitis (3 sources) Gastrointestinal perforation; Translations: [Diverticulitis of intestine, part unspecified, with perforation and abscess without bleeding] Onset: 4 04-26-2023 Chronic Essential hypertension (4 sources) Hypertensive disorder; Translations: [Essential (primary) hypertension] Onset: 7 Resolved: 7 12-12-2016 Chronic Neoplasms of unspecified nature or uncertain behavior (1 source) Neoplasm of ovary; Translations: [Neoplasm of unspecified behavior of other genitourinary organ] 04-26-2023 Episodic Other female genital disorders (1 source) Mass of left ovary; Translations: [Other noninflammatory disorders of ovary, fallopian tube and broad ligament] Onset: 4 04-26-2023 Episodic Other female genital disorders (1 source) Other noninflammatory disorders of ovary, fallopian tube and broad ligament; Translations: [Ovarian mass, left] Onset: 4 Episodic Other gastrointestinal disorders (1 source) Pelvic mass; Translations: [Intra-abdominal and pelvic swelling, mass and lump, unspecified site] 05-13-2023 Episodic Other gastrointestinal disorders (2 sources) Intra-abdominal and pelvic swelling, mass and lump, unspecified site; Translations: [Intra-abdominal and pelvic swelling, mass and lump, unspecified site] Onset: 4 Episodic Other lower respiratory disease (1 source) Fibrosis of lung; Translations: [Pulmonary fibrosis, unspecified] Onset: 4 04-26-2023 Chronic Other lower respiratory disease (1 source) Pulmonary fibrosis, unspecified; Translations: [Pulmonary fibrosis (HCC)] Onset: 4 Chronic Pancreatic disorders (not diabetes) (2 sources) Mass of pancreas; Translations: [Other specified diseases of pancreas] Onset: 4 04-26-2023 Episodic Pulmonary heart disease (3 sources) Pulmonary hypertension; Translations: [Pulmonary hypertension, unspecified] Onset: 2 Chronic Respiratory failure; insufficiency; arrest (adult) (1 source) Chronic hypoxemic respiratory failure; Translations: [Chronic respiratory failure with hypoxia] Onset: 4 04-26-2023 Chronic Unclassified (1 source) Unknown / UNK(Unknown) Onset: 8 Past or Other Problems Problem Classification Problem Date Documented Da te Episodic/Chronic Administrative/social admission (2 sources) Person with feared health complaint in whom no diagnosis is made; Translations: [Person with feared health complaint in whom no diagnosis is made] Onset: 12-12-2016 12-12-2016 Episodic Other connective tissue disease (4 sources) Soft tissue lesion of shoulder region; Translations: [Bursopathy, unspecified] Onset: 05-15-2010 05-15-2010 Episodic Unclassified (1 source) J20.9 Onset: 01-13-2018 Results Test Name Value Interpretation Reference Range Facil ity Vital Signs Date Time Vital Sign Value Performing Clinician Faci lity 05-13-2023 12:43-0500 Body height 154.9 cm Mark Arias MD Work Phone: [facility] 05-13-2023 12:43-0500 Body mass index (BMI) [Ratio] 52.49 kg/m2 Mark Arias MD Work Phone: [facility] 05-13-2023 12:43-0500 Body weight 126.01 kg Mark Arias MD Work Phone: [facility] 05-13-2023 12:43-0500 Diastolic blood pressure 78 mm[Hg] Mark Arias MD Work Phone: [facility] 05-13-2023 12:43-0500 Heart rate 79 /min Mark Arias MD Work Phone: [facility] 05-13-2023 12:43-0500 Systolic blood pressure 121 mm[Hg] Mark Arias MD Work Phone: [facility] 04-02-2022 10:07-0500 Diastolic blood pressure 85 mm[Hg] Abdirahman Ball MD Work Phone: [facility] 04-02-2022 10:07-0500 Heart rate 75 /min Abdirahman Ball MD Work Phone: [facility] 04-02-2022 10:07-0500 Respiratory rate 18 /min Abdirahman Ball MD Work Phone: [facility] 04-02-2022 10:07-0500 SaO2% (BldA) [Mass fraction] 97 % Abdirahman Ball MD Work Phone: [facility] 04-02-2022 10:07-0500 Systolic blood pressure 154 mm[Hg] Abdirahman Ball MD Work Phone: [facility] 04-02-2022 09:00-0500 Body height 154.9 cm Abdirahman Ball MD Work Phone: [facility] 04-02-2022 09:00-0500 Body weight 79.38 kg Abdirahman Ball MD Work Phone: [facility] 04-02-2022 08:02-0500 Body temperature 98.2 [degF] Abdirahman Ball MD Work Phone: [facility] 12-12-2016 12:37-0400 BMI (Body Mass Index) 30.23 kg/m2 Ramses [facility] Work Phone: 12-12-2016 12:37-0400 Body Temperature 98.5 [degF] Ramses [facility] Work Phone: 12-12-2016 12:37-0400 BP Diastolic 92 mm[Hg] Ramses [facility] Work Phone: 12-12-2016 12:37-0400 BP Diastolic 84 mm[Hg] Ramses [facility] Work Phone: 12-12-2016 12:37-0400 BP Systolic 122 mm[Hg] Ramses [facility] Work Phone: 12-12-2016 12:37-0400 BP Systolic 124 mm[Hg] Ramses [facility] Work Phone: 12-12-2016 12:37-0400 Height 154.94 cm Ramses [facility] Work Phone: 12-12-2016 12:37-0400 Pulse (Heart Rate) 97 /min Ramses [facility] Work Phone: 12-12-2016 12:37-0400 Respiratory Rate 14 /min Ramses [facility] Work Phone: 12-12-2016 12:37-0400 Weight 72.58 kg Ramses [facility] Work Phone: Encounters Encounter Date Encounter Type Care Provider Facility Start: 05-13-2023 End: 05-13-2023 ambulatory HUSSAIN-CHI TATIANA [facility] Start: 05-13-2023 End: 05-13-2023 Office outpatient new 30 minutes Mark Arias MD Work Phone: [facility] Gynecologic Oncology Procedures Date Procedure Procedure Detail Performing Clinician Start: 04-02-2022 End: 04-02-2022 O2 SATURATION (POC) Abdirahman Ball MD Work Phone: Plan of Treatment Date Care Activity Detail Author Start: 09-05-2030 DTaP/Tdap/Td Vaccine s (4 - Td or Tdap) DTaP/Tdap/Td Vaccines (4 - Td or Tdap) [facility] Start: 04-26-2026 Diabetes Screening Diabetes Screenin g [facility] Start: 08-12-2023 End: 05-13-2024 CT Abdomen and Pelvis W contrast IV CT abdomen pelvis w contrast Imaging Routine Pelvic mass in female Expected: 08/12/2023, Expires: 05/13/2024 [facility] Work Phone: Immunizations Immunization Date Immunization Notes Care Provider Aviva reyes 01-25-2018 influenza virus vacc ine, unspecified formulation Fab Wilburn MD Work Phone: [facility] Payers Date Payer Category Payer Unknown [employer]AM[employer] PPO [id number] 2022-[address]22 [address] [place] [address] PPO [id number] 2019 Medicare [id number] 2019 Private Health Insurance [id number] Unknown [id number] Social History Date Type Detail Facility [facility] consumption unknown [facility] Start: 1950 Sex Assigned At Not on file [facility] Start: 04-26-2023 End: 05-12-2023 Tobacco smoking status CAIS Never smoked tobacco [facility] Start: 04-26-2023 End: 05-12-2023 Tobacco use and exposure Smokeless tobacco non-user [facility] Start: 04-26-2023 End: 05-13-2023 Alcohol intake Lifetime non-drinker (finding) [facility] Start: 04-26-2023 End: 05-13-2023 History of Social function [facility] Start: 04-26-2023 End: 05-13-2023 Tobacco use panel [facility] Clinical Notes 03-25-2022 to 05-13-2023 Mark Arias MD - 05/13/2023 1:00 PM ESTTelephone Encounter - Fab Wilburn MD - 04/26/2023 5:38 PM ESTOperative Report - Abdirahman Ball MD - 04/02/2022 9:06 AM EST Note Date & Type Note Facility 05-13-2023 Note HPI: Ning Kolb is a pleasant 73 y.o. female who presents in consultation from Dr. Simpson for further evaluation and management of left adnexal mass. She initiallypresented with CT scan on April 26 that did show a ruptured diverticulum with small abscess. Also had a chest x-ray that showed evidence of florid heart failure. Patient was subsequently transferred to [facility]. The diverticulitis was treated conservatively without surgery. She was also noted to have a pelvic mass on the original scan. Also 13 cm cystic mass was found involving the left ovary. This was confirmed on ultrasound There is a large cystic mass in the left adnexa measuring 16.8 x 8.3 x 11.2 cm. There are 2 visible septations, one of which appears thickened and irregular. There is minimal flow within the septation on Doppler. The sonographic features are compatible with an O-RADS 4 lesion, intermediate risk. The eccentric solid component demonstrated on the prior CT is not clearly evident sonographically. [place] is Dr Aggarwal in [place]. Patient is been oxygen dependent for 5 years. Admits to having very poor pul lung function. Patient denies any pain from the left lower quadrant mass. She did have a very cute onset of pain with the diverticulitis but that is now resolved with the IV and p.o. antibiotics. She denies any change in bowel or bladder habits. She denies any vaginal bleeding. Was unaware that she had a large ovarian cyst. Patient is here today with her son, daughter on the phone as well as her . She is very concerned about being put on a ventilator. She has pulmonary fibrosis of unknown etiology. Past Medical History: Diagnosis Date Hypertension Pulmonary fibrosis (HCC) Thyroid disease Past Surgical History: Procedure Laterality Date HYSTERECTOMY Bilateral TUBAL LIGATION Hyst for b9 Family History Problem Relation Name Age of Onset Colon cancer Father No ovarian or colon cancers in the family Social History Socioeconomic History Marital status: Unknown Tobacco Use Smoking status: Never Smokeless tobacco: Never Substance and Sexual Activity Alcohol use: Never Drug use: Never Current Outpatient Medications Medication Sig Dispense Refill amLODIPine (Norvasc) 5 MG tablet Take 5 mg by mouth in the morning. atorvastatin (Lipitor) 20 MG tablet Take 20 mg by mouth daily. escitalopram (Lexapro) 10 MG tablet Take 10 mg by mouth every evening. Fluticasone Furoate-Vilanterol (Breo Ellipta) 200-25 MCG/ACT aerosol powder Inhale 1 Inhalation in the morning. levothyroxine (Synthroid, Levoxyl) 25 MCG tablet Take 25 mcg by mouth every morning (before breakfast). Nintedanib Esylate 100 MG capsule Take 100 mg by mouth in the morning and 100 mg in the evening. pramipexole (Mirapex) 1 MG tablet Take 1 mg by mouth. Treprostinil (Tyvaso DPI Maintenance Kit) 48 MCG powder Inhale 48 mcg in the morning and 48 mcg at noon and 48 mcg in the evening. ondansetron (Zofran) 4 MG tablet Take 4 mg by mouth every 8 hours as needed. No current facility-administered medications for this visit. Allergies as of 05/13/2023 - Reviewed 05/13/2023 Allergen Reaction Noted Piperacillin sod-tazobactam so 04/30/2023 Review of Systems: Review of Systems Constitutional: Negative for appetite change and unexpected weight change. Respiratory: Positive for shortness of breath. Gastrointestinal: Negative for abdominal distention and abdominal pain. Genitourinary: Negative for pelvic pain and vaginal bleeding. BP 121/78 Pulse 79 Ht 1.549 m (5' 1 ) Wt 126 kg (277 lb 12.8 oz) BMI 52.49 kg/m? Physical Exam: Physical Exam Vitals and nursing note reviewed. Exam conducted with a hydrology technician present. Constitutional: Appearance: She is ill-appearing. Pulmonary: Breath sounds: No wheezing. Comments: Distant breath sounds Abdominal: General: There is distension. Palpations: There is no mass. Tenderness: There is abdominal tenderness. Neurological: Mental Status: She is alert. Labs: CBC in May 01 showed white blood cell count of 5, hemoglobin of 9.4. Initial white blood cell count on April 26 was 20.8 CEA was elevated at 2.9 CA125 level on April 26 was 8 No components found for: CBC No components found for: CMP Pathology: : Radiology review; the CD-ROM of the CAT scan is personally been reviewed showing a predominantly cystic lesion, no internal excrescences or solid areas are noted. No ascites noted. It is pushing the bladder a bit to the right. Overall suspicion is for a benign lesion. ASSESSMENT/PLAN: Diagnosis Plan 1. Pelvic mass in female Significant pulmonary disease. Discussed options of surgical excision hopefully laparoscopically versus exploratory laparotomy versus close observation. We discussed that the patient does have major medical comorbidities which would make surgery difficult, would make Trendelenburg position difficult and possibly (more content not included)... [facility] 05-13-2023 History of Present illness Narrative HPI: Ning Kolb is a pleasant 73 y.o. female who presents in consultation from Dr. Simpson for further evaluation and management of left adnexal mass. She initiallypresented with CT scan on April 26 that did show a ruptured diverticulum with small abscess. Also had a chest x-ray that showed evidence of florid heart failure. Patient was subsequently transferred to [facility]. The diverticulitis was treated conservatively without surgery. She was also noted to have a pelvic mass on the original scan. Also 13 cm cystic mass was found involving the left ovary. This was confirmed on ultrasound There is a large cystic mass in the left adnexa measuring 16.8 x 8.3 x 11.2 cm. There are 2 visible septations, one of which appears thickened and irregular. There is minimal flow within the septation on Doppler. The sonographic features are compatible with an O-RADS 4 lesion, intermediate risk. The eccentric solid component demonstrated on the prior CT is not clearly evident sonographically. [place] is Dr Aggarwal in [place]. Patient is been oxygen dependent for 5 years. Admits to having very poor pul lung function. Patient denies any pain from the left lower quadrant mass. She did have a very cute onset of pain with the diverticulitis but that is now resolved with the IV and p.o. antibiotics. She denies any change in bowel or bladder habits. She denies any vaginal bleeding. Was unaware that she had a large ovarian cyst. Patient is here today with her son, daughter on the phone as well as her . She is very concerned about being put on a ventilator. She has pulmonary fibrosis of unknown etiology. Past Medical History: Diagnosis Date Hypertension Pulmonary fibrosis (HCC) Thyroid disease Past Surgical History: Procedure Laterality Date HYSTERECTOMY Bilateral TUBAL LIGATION Hyst for b9 Family History Problem Relation Name Age of Onset Colon cancer Father No ovarian or colon cancers in the family Social History Socioeconomic History Marital status: Unknown Tobacco Use Smoking status: Never Smokeless tobacco: Never Substance and Sexual Activity Alcohol use: Never Drug use: Never Current Outpatient Medications Medication Sig Dispense Refill amLODIPine (Norvasc) 5 MG tablet Take 5 mg by mouth in the morning. atorvastatin (Lipitor) 20 MG tablet Take 20 mg by mouth daily. escitalopram (Lexapro) 10 MG tablet Take 10 mg by mouth every evening. Fluticasone Furoate-Vilanterol (Breo Ellipta) 200-25 MCG/ACT aerosol powder Inhale 1 Inhalation in the morning. levothyroxine (Synthroid, Levoxyl) 25 MCG tablet Take 25 mcg by mouth every morning (before breakfast). Nintedanib Esylate 100 MG capsule Take 100 mg by mouth in the morning and 100 mg in the evening. pramipexole (Mirapex) 1 MG tablet Take 1 mg by mouth. Treprostinil (Tyvaso DPI Maintenance Kit) 48 MCG powder Inhale 48 mcg in the morning and 48 mcg at noon and 48 mcg in the evening. ondansetron (Zofran) 4 MG tablet Take 4 mg by mouth every 8 hours as needed. No current facility-administered medications for this visit. Allergies as of 05/13/2023 - Reviewed 05/13/2023 Allergen Reaction Noted Piperacillin sod-tazobactam so 04/30/2023 Review of Systems: Review of Systems Constitutional: Negative for appetite change and unexpected weight change. Respiratory: Positive for shortness of breath. Gastrointestinal: Negative for abdominal distention and abdominal pain. Genitourinary: Negative for pelvic pain and vaginal bleeding. BP 121/78 Pulse 79 Ht 1.549 m (5' 1 ) Wt 126 kg (277 lb 12.8 oz) BMI 52.49 kg/m Physical Exam: Physical Exam Vitals and nursing note reviewed. Exam conducted with a hydrology technician present. Constitutional: Appearance: She is ill-appearing. Pulmonary: Breath sounds: No wheezing. Comments: Distant breath sounds Abdominal: General: There is distension. Palpations: There is no mass. Tenderness: There is abdominal tenderness. Neurological: Mental Status: She is alert. Labs: CBC in May 01 showed white blood cell count of 5, hemoglobin of 9.4. Initial white blood cell count on April 26 was 20.8 CEA was elevated at 2.9 CA125 level on April 26 was 8 No components found for: CBC No components found for: CMP Pathology: : Radiology review; the CD-ROM of the CAT scan is personally been reviewed showing a predominantly cystic lesion, no internal excrescences or solid areas are noted. No ascites noted. It is pushing the bladder a bit to the right. Overall suspicion is for a benign lesion. ASSESSMENT/PLAN: Diagnosis Plan 1. Pelvic mass in female Significant pulmonary disease. Discussed options of surgical excision hopefully laparoscopically versus exploratory laparotomy versus close observation. We discussed that the patient does have major medical comorbidities which would make surgery difficult, would make Trendelenburg position difficult and possibly require ventilatory support for several days after surgery. The patient is in agreement and does not want surgery unless it is absolutely necessary. We did discuss repeating another CT scan in 3 months time. As long as the mass is not changing in size or character we will plan on continued observation. The patient and her family are very happy with this. Total time spent on day of surgery with review of records, coordination of care, review of CT scan with patient and her family and coordination of care was 35 minutes documented in this encounter [facility] 04-30-2023 Note HNO ID: [id number] Author: JOSÉ LEAL MD Service: Hospital Medicine Author Type: Physician Type: Progress Notes Filed: 04/30/2023 13:34 Note Text: INPATIENT PROGRESS NOTE SERVICE DATE: 04/30/2023 PRIMARY SERVICE: Hospital Medicine CHIEF COMPLAINT: Abdominal discomfort Subjective Patient complaining of nausea but no vomiting however severe dry heaves, denied having chest pain, continues to have abdominal discomfort no fever chills, he said that she had blood on the tissue after she wiped her behind. Current Facility-Administered Medications Medication Dose Route Frequency NaCl 0.9% iv flush bag 20 mL INTRAVENOUS PRN aluminum-magnesium hydroxide-simethicone 200-200-20 mg/5 mL 30 mL 30 mL ORAL DAILY PRN ondansetron 4 mg tab(s) (ZOFRAN) 4 mg ORAL q 6 H PRN Or ondansetron (PF) 4 mg injection (ZOFRAN) 4 mg INTRAVENOUS q 6 H PRN lactated ringers iv infusion 75 mL/hr INTRAVENOUS CONTINUOUS treprostinil CtDv 48 mcg (TYVASO DPI) 48 mcg INHALATION TID albuterol 2.5 mg /3 mL (0.083 %) 2.5 mg (PROVENTIL) 2.5 mg INHALATION q 4 H PRN acetaminophen 975 mg tab(s) (TYLENOL) 975 mg ORAL QID nintedanib 100 mg cap(s) (OFEV) 100 mg ORAL q 12 H mometasone-formoterol 200-5 mcg/actuation 2 Puff inhaler (DULERA) 2 Puff INHALATION BID oxyCODONE IR 2.5-5 mg tab(s) (ROXICODONE) 2.5-5 mg ORAL q 6 H PRN methocarbamol 500 mg tab(s) (ROBAXIN) 500 mg ORAL TID pramipexole 1 mg tab(s) (MIRAPEX) 1 mg ORAL AT BEDTIME amoxicillin-clavulanate potassium 875 mg tab(s) (AUGMENTIN) 875 mg ORAL q 12 H keTORolac 15 mg injection (Toradol) 15 mg INTRAVENOUS q 6 H Objective PHYSICAL EXAM: BP 142/61 Pulse 65 Temp (Src) 98.3 (Oral) Resp 18 Ht 5' 1 (1.55m) Wt 194 lb (88.0kg) SpO2 98% BMI 36.67 kg/(m2). O2 Therapy: Nasal Cannula, Liters: 4, %FIO2: 4 General: Patient is alert and is in no acute respiratory distress. Lungs: Clear to auscultation, no wheezing, rales, or rhonchi. Cardiac: S1-S2 within normal limits Abdomen: Soft, lower abdominal discomfort no signs of acute abdomen, nondistended. Extremities: No cyanosis Neurologic: Cranial nerves from II-XII intact grossly. Psych normal affect. DATA: LABORATORY TESTS: CBC: Recent Labs 04/30/2343004/29/[id number] WBC 5.64 9.43 11.81* 14.47* HB 8.7* 9.5* 9.6* 10.0* PLT 167 189 156 152 MCV 89.9 90.3 88.2 90.8 NEUTP 77.3 -- 81.4 87.1 ABSNEUT 4.36 -- 9.61* 12.60* LYMPHP 7.8 -- 9.7 5.2 CHEM: Recent Labs 04/30/2343004/28/23 0904/27/23457 NA 142 141 142 K 3.6 3.8 3.6 CA 8.7 8.6 8.5 MG 1.6 -- -- ANION 4* 4* 8 CHLOR 105 105 106 CO2 33* 32 28 GLUC 85 114* 118* BUN 12 23 27* CREAT 0.97* 1.29* 1.56* HEPATIC: Recent Labs 04/30/2343004/28/23 0904/27/23457 ALT 14 14 15 AST 19 17 16 TBILI 0.5 1.0 1.8* ALKPHOS 75 69 75 ALB 2.1* 2.2* 2.4* TPROT 4.9* 4.8* 5.0* URINALYSIS:No results for input(s): SPGR , UBACTERIA , LEUKEST , SSA , UWBC , URBC , UHB , UPROT , UGLUC , UKET in the last 168 hours. Invalid input(s): NITR COAG: No results for input(s): APTT , INR in the last 168 hours. CARDIAC: No results for input(s): CKMB , CKMBP , TROPT , PBNP in the last 168 hours. DATA: Diagnostic tests reviewed for today's visit: Most recent labs and imaging results. Most recent EKG Urine Culture: Positive Micro-30 Days No results found for the last 720 hours. Blood Culture: Positive Micro-30 Days No results found for the last 720 hours. Medication and Non-Pharmacologic VTE Prophylaxis/Anticoagulants 04/26/23 1245 vte pharmacologic prophylaxis contraindicated (ct,ar) 04/26/23 1245 pneumatic compression stockings ([place]) 04/26/23 1245 activity - mobilize patient ([place]) VTE Prophylaxis: VTE prophylaxis appropriate Assesment: Acute bowel perforation secondary to diverticulitis and abscess without bleeding Obesity BMI 36 Pulmonary fibrosis Chronic respiratory failure with hypoxia Left ovarian mass Pancreatic mass Anemia Acute kidney injury Suspected GI bleed Plan *Continue pain management, continue Augmentin for 10 more days as per general surgery recommendation follow-up as outpatient [facility] as well recommend follow-up as outpatient. *Continue chronic home medications monitor vital signs *Encourage oral hydration, monitor CBC CMP magnesium level for tomorrow *Plan to discharge patient home with home health care possibly, patient declined SNF *Discussed the case with the patient and her sister at bedtime and nursing staff Plan 04/30/2023 *Review blood work HANDH low but stable patient will need MRI for pancreas follow-up with GI as outpatient, patient will continue on oral Augmentin, no surgery at this time indicated, patient will receive IV antiemesis, patient is not eating very well waiting for her to eat better and pain control for discharge home. *Encourage oral hydration continue IV hy (more content not included)... [facility] 04-29-2023 Note HNO ID: [id number] Author: JOSÉ LEAL MD Service: Hospital Medicine Author Type: Physician Type: Progress Notes Filed: 04/29/2023 13:30 Note Text: INPATIENT PROGRESS NOTE SERVICE DATE: 04/29/2023 PRIMARY SERVICE: Hospital Medicine CHIEF COMPLAINT: Abdominal discomfort Subjective Continues to have abdominal discomfort, No nausea no vomiting no fever chills no chest pain. Current Facility-Administered Medications Medication Dose Route Frequency NaCl 0.9% iv flush bag 20 mL INTRAVENOUS PRN aluminum-magnesium hydroxide-simethicone 200-200-20 mg/5 mL 30 mL 30 mL ORAL DAILY PRN ondansetron 4 mg tab(s) (ZOFRAN) 4 mg ORAL q 6 H PRN Or ondansetron (PF) 4 mg injection (ZOFRAN) 4 mg INTRAVENOUS q 6 H PRN lactated ringers iv infusion 75 mL/hr INTRAVENOUS CONTINUOUS treprostinil CtDv 48 mcg (TYVASO DPI) 48 mcg INHALATION TID albuterol 2.5 mg /3 mL (0.083 %) 2.5 mg (PROVENTIL) 2.5 mg INHALATION q 4 H PRN acetaminophen 975 mg tab(s) (TYLENOL) 975 mg ORAL QID nintedanib 100 mg cap(s) (OFEV) 100 mg ORAL q 12 H mometasone-formoterol 200-5 mcg/actuation 2 Puff inhaler (DULERA) 2 Puff INHALATION BID morphine 4 mg injection 4 mg INTRAVENOUS q 4 H PRN oxyCODONE IR 2.5-5 mg tab(s) (ROXICODONE) 2.5-5 mg ORAL q 6 H PRN methocarbamol 500 mg tab(s) (ROBAXIN) 500 mg ORAL TID pramipexole 1 mg tab(s) (MIRAPEX) 1 mg ORAL AT BEDTIME amoxicillin-clavulanate potassium 875 mg tab(s) (AUGMENTIN) 875 mg ORAL q 12 H Objective PHYSICAL EXAM: BP 97/42 Pulse 61 Temp (Src) 98.8 (Oral) Resp 16 Ht 5' 1 (1.55m) Wt 194 lb 9.6 oz (88.3kg) SpO2 98% BMI 36.79 kg/(m2). O2 Therapy: Nasal Cannula, Liters: 4, %FIO2: 4 General: Patient is alert and is in no acute respiratory distress. Lungs: Clear to auscultation, no wheezing, rales, or rhonchi. Cardiac: S1-S2 within normal limits Abdomen: Soft, lower abdominal discomfort no signs of acute abdomen, nondistended. Extremities: No cyanosis Neurologic: Cranial nerves from II-XII intact grossly. Psych normal affect. DATA: Recent Labs 04/27/23 0335 PCGLUCOSE 98 LABORATORY TESTS: CBC: Recent Labs 04/29/23 0921 04/28/23 0909 04/27/23 0458 04/26/23 1215 WBC 9.43 11.81* 14.47* 20.08* HB 9.5* 9.6* 10.0* 11.1* PLT 189 156 152 183 MCV 90.3 88.2 90.8 88.7 NEUTP -- 81.4 87.1 85.3 ABSNEUT -- 9.61* 12.60* 17.12* LYMPHP -- 9.7 5.2 6.2 CHEM: Recent Labs 04/28/23 0909 04/27/23 0458 04/26/23 1215 NA 141 142 140 K 3.8 3.6 3.7 CA 8.6 8.5 8.7 ANION 4* 8 4* CHLOR 105 106 104 CO2 32 28 32 GLUC 114* 118* 115* BUN 23 27* 17 CREAT 1.29* 1.56* 1.21* HEPATIC: Recent Labs 04/28/23 0909 04/27/23 0458 04/26/23 1215 ALT 14 15 18 AST 17 16 15 TBILI 1.0 1.8* 1.9* ALKPHOS 69 75 85 ALB 2.2* 2.4* 2.9* TPROT 4.8* 5.0* 5.8* URINALYSIS:No results for input(s): SPGR , UBACTERIA , LEUKEST , SSA , UWBC , URBC , UHB , UPROT , UGLUC , UKET in the last 168 hours. Invalid input(s): NITR COAG: No results for input(s): APTT , INR in the last 168 hours. CARDIAC: No results for input(s): CKMB , CKMBP , TROPT , PBNP in the last 168 hours. DATA: Diagnostic tests reviewed for today's visit: Most recent labs and imaging results. Most recent EKG Urine Culture: Positive Micro-30 Days No results found for the last 720 hours. Blood Culture: Positive Micro-30 Days No results found for the last 720 hours. Medication and Non-Pharmacologic VTE Prophylaxis/Anticoagulants 04/26/23 1245 vte pharmacologic prophylaxis contraindicated ([place] 04/26/23 1245 pneumatic compression stockings [place] 04/26/23 1245 activity - mobilize patient ([place]) VTE Prophylaxis: VTE prophylaxis appropriate Assesment: Acute bowel perforation secondary to diverticulitis and abscess without bleeding Obesity BMI 36 Pulmonary fibrosis Chronic respiratory failure with hypoxia Left ovarian mass Pancreatic mass Anemia Acute kidney injury Abnormal bilirubin Plan *Continue pain management, continue Augmentin for 10 more days as per general surgery recommendation follow-up as outpatient ICE CRUSHER as well recommend follow-up as outpatient. *Continue chronic home medications monitor vital signs *Encourage oral hydration, monitor CBC CMP magnesium level for tomorrow *Plan to discharge patient home with home health care possibly, patient declined SNF *Discussed the case with the patient and her sister at bedtime and nursing staff Plan of care discussed with: Provider, RN, Patient. Disclaimer This dictation was created using voice recognition software. Phonetic and/or minor grammatical errors may exist. SIGNATURE: José Leal MD PATIENT NAME: Ning Kolb DATE: April 29, 2023 [facility] 04-28-2023 Note HNO ID: [id number] Author: ANNMARIE ERAZO MD Service: Hospital Medicine Author Type: Physician Type: Progress Notes Filed: 04/28/2023 15:09 Note Text: DEPARTMENT OF HOSPITAL MEDICINE PROGRESS NOTE SERVICE DATE: 04/28/2023 Hospital Medicine/Primary Attending: Annmarie Erazo MD CHIEF COMPLAINT: Patient is 73-year-old female past medical history significant for idiopathic pulmonary fibrosis chronic hypoxic respite failure maintained on 4 L nasal cannula hypertension hypothyroidism depression hyperlipidemia presented with left lower quadrant pain CT abdomen showed perforated diverticulitis with abscess. 1 cm ovarian mass. General surgery as well as SAP BODS DEVELOPER consultation was obtained. Seen by pulmonary consultation obtained for possible need for surgical intervention at the chronic idiopathic pulmonary fibrosis. Oncology consultation is recommended by general ICE CRUSHER. Per surgery conservative treatment. Diet resumed. Per ICE CRUSHER patient is to be transferred to [facility] for general surgery and ICE CRUSHER oncology evaluation in case surgical intervention is needed and due to her chronic respiratory status both surgeries can be done in 1 setting. Since patient is tolerating diet well [facility] denied the transfer request. Per ICE CRUSHER oncology at [facility] patient can follow-up with ICE CRUSHER as an outpatient for ovarian mass. Pelvic Ultrasound showed 16.8 cm septated cystic lesion in the left adnexa (O-RADS 4, intermediate risk). The eccentric solid component of the lesion on the comparison CT is not definable sonographically. MRI with contrast has higher specificity for solid lesions and cystic lesions with solid components. CEA 125 8 CEA elevated at 2.9. Leukocytosis trending down. SUBJECTIVE: Pt seen and examined. Discussed with daughter has been. Condition updated all questions answered. Today patient is complaining of pain. Mostly in the left lower quadrant. Does not feel like eating. Seen by surgery. Diet changed. No plan for surgery. OBJECTIVE: PHYSICAL EXAM: BP 109/61 Pulse 70 Temp (Src) 98.3 (Oral) Resp 16 Ht 5' 1 (1.55m) Wt 195 lb 4.8 oz (88.6kg) SpO2 98% BMI 36.92 kg/(m2). O2 Therapy: Nasal Cannula, Liters: 4, %FIO2: 4 General - AANDOx3, moderate discomfort secondary to pain CV - RRR S1 S2, No M/R/G RESP - CTA B/L No wheezes, ronchi, rales ABD - soft, William limited due to discomfort EXT - no gross joint deformity, no clubbing, cyanosis, edema NEURO - CN II-XII grossly intact, no focal deficits MEDICATIONS: Current Facility-Administered Medications Medication Dose Route Frequency NaCl 0.9% iv flush bag 20 mL INTRAVENOUS PRN aluminum-magnesium hydroxide-simethicone 200-200-20 mg/5 mL 30 mL 30 mL ORAL DAILY PRN ondansetron 4 mg tab(s) (ZOFRAN) 4 mg ORAL q 6 H PRN Or ondansetron (PF) 4 mg injection (ZOFRAN) 4 mg INTRAVENOUS q 6 H PRN lactated ringers iv infusion 75 mL/hr INTRAVENOUS CONTINUOUS treprostinil CtDv 48 mcg (TYVASO DPI) 48 mcg INHALATION TID albuterol 2.5 mg /3 mL (0.083 %) 2.5 mg (PROVENTIL) 2.5 mg INHALATION q 4 H PRN acetaminophen 975 mg tab(s) (TYLENOL) 975 mg ORAL QID nintedanib 100 mg cap(s) (OFEV) 100 mg ORAL q 12 H mometasone-formoterol 200-5 mcg/actuation 2 Puff inhaler (DULERA) 2 Puff INHALATION BID piperacillin-tazobactam iv piggyback 3.375 g in dextrose (iso-osmotic) 50 mL (ZOSYN) 3.375 g INTRAVENOUS q 8 H morphine 4 mg injection 4 mg INTRAVENOUS q 4 H PRN oxyCODONE IR 2.5-5 mg tab(s) (ROXICODONE) 2.5-5 mg ORAL q 6 H PRN methocarbamol 500 mg tab(s) (ROBAXIN) 500 mg ORAL TID pramipexole 1 mg tab(s) (MIRAPEX) 1 mg ORAL AT BEDTIME DATA: Diagnostic tests reviewed for today's visit: CBC: Recent Labs 04/28/23908 WBC 11.81* RBC 3.46* HB 9.6* HCT 30.5* PLT 156 MCV 88.2 MCH 27.7 MPV 10.4 Coags: No results for input(s): PT , INR , APTT in the last 24 hours. BMP: Recent Labs 04/28/23 0909 NA 141 K 3.8 CHLOR 105 CO2 32 BUN 23 CREAT 1.29* GLUC 114* CMP: Recent Labs 04/28/23 0909 NA 141 K 3.8 CHLOR 105 CO2 32 BUN 23 CREAT 1.29* GLUC 114* TPROT 4.8* CA 8.6 TBILI 1.0 ALKPHOS 69 ALT 14 AST 17 ANION 4* Cardiac Enzymes: No results for input(s): CK , MB , CKMB , TROPT in the last 24 hours. Liver Function, Amylase, Lipase: Recent Labs 04/28/23908 TPROT 4.8* ALB 2.2* ALT 14 AST 17 ALKPHOS 69 TBILI 1.0 MG/PHOS: No results for input(s): MG , P in the last 24 hours. Renal Panel: Recent Labs 04/28/23908 CREAT 1.29* BUN 23 GLUC 114* CA 8.6 CHLOR 105 K 3.8 CO2 32 NA 141 Heme: No results for input(s): RETICP , ABSRETIC , LD , MELI , FE , TIBC , TRANSFERSAT in the last 24 hours. No results found for: UALBCR Estimated Creatinine Clearance: 38.1 mL/min (A) (based on SCr of 1.29 mg/dL (H)). @[facility]@ Assessment/Plan Principal Problem: Acute diverticulitis of intestine with perforation and abs (more content not included)... [facility] 04-27-2023 Note HNO ID: [id number] Author: ODILIA SIERRA MD Service: Obstetrics Author Type: Physician Type: Progress Notes Filed: 04/27/2023 18:59 Note Text: SAP BODS DEVELOPER CONSULT PROGRESS NOTE SERVICE DATE: 04/27/2023 SERVICE TIME: 1600 Subjective HISTORY OF THE PRESENT ILLNESS: This 73 year old HD#1 admitted for perforated diverticulitis with incidental finding of a large L ovarian cyst. US today showed a 16.8 cm L ovarian cyst with septations and O-RADS 4. Discussed findings with the patient and recommendation for consultation with ICE CRUSHER/ONC which is not available at this facility. Patient is currently stable. Objective PHYSICAL EXAM: BP 130/61 Pulse 87 Temp 37 ?C (98.6 ?F) (Oral) Resp 16 Ht 154.9 cm (5' 1 ) Wt 87 kg (191 lb 12.8 oz) SpO2 100% BMI 36.24 kg/m? General: In no apparent distress. Oriented x3 and appropriate. Morbidly obese. Uncomfortable. Extremities: normal motion Current Facility-Administered Medications Medication Dose Route Frequency NaCl 0.9% iv flush bag 20 mL INTRAVENOUS PRN aluminum-magnesium hydroxide-simethicone 200-200-20 mg/5 mL 30 mL 30 mL ORAL DAILY PRN ondansetron 4 mg tab(s) (ZOFRAN) 4 mg ORAL q 6 H PRN Or ondansetron (PF) 4 mg injection (ZOFRAN) 4 mg INTRAVENOUS q 6 H PRN lactated ringers iv infusion 75 mL/hr INTRAVENOUS CONTINUOUS treprostinil CtDv 48 mcg (TYVASO DPI) 48 mcg INHALATION TID albuterol 2.5 mg /3 mL (0.083 %) 2.5 mg (PROVENTIL) 2.5 mg INHALATION q 4 H PRN acetaminophen 975 mg tab(s) (TYLENOL) 975 mg ORAL QID nintedanib 100 mg cap(s) (OFEV) 100 mg ORAL q 12 H mometasone-formoterol 200-5 mcg/actuation 2 Puff inhaler (DULERA) 2 Puff INHALATION BID piperacillin-tazobactam iv piggyback 3.375 g in dextrose (iso-osmotic) 50 mL (ZOSYN) 3.375 g INTRAVENOUS q 8 H morphine 4 mg injection 4 mg INTRAVENOUS q 4 H PRN oxyCODONE IR 2.5-5 mg tab(s) (ROXICODONE) 2.5-5 mg ORAL q 6 H PRN methocarbamol 500 mg tab(s) (ROBAXIN) 500 mg ORAL TID DATA: Diagnostic tests reviewed for today's visit: Most recent imaging Assessment/Plan Principal Problem: Diverticulitis of intestine with perforation and abscess without bleeding, unspecified part of intestinal tract (POA: Yes) Active Problems: Encounter for pre-operative respiratory clearance (POA: Unknown) Pulmonary fibrosis (HCC) (POA: Unknown) Chronic respiratory failure with hypoxia (HCC) (POA: Unknown) Perforated diverticulum (POA: Unknown) Ovarian mass, left (POA: Unknown) Assessment AND Plan: Recommend ICE CRUSHER/ONC consultation for further evaluation and management. If surgery is not urgently needed for the diverticulitis the patient would benefit from being at a facility that could address both problems during a single surgery. ICE CRUSHER will sign off. Pancreatic mass (POA: Unknown) Plan of care discussed with: Provider, RN, Patient. SIGNATURE: Odilia Sierra MD PATIENT NAME: Ning Kolb DATE: April 27, 2023 TIME: 6:49 PM PAGER: [facility] 04-27-2023 Note HNO ID: [id number] Author: ANNMARIE ERAZO MD Service: Hospital Medicine Author Type: Physician Type: Progress Notes Filed: 04/27/2023 16:55 Note Text: DEPARTMENT OF HOSPITAL MEDICINE PROGRESS NOTE SERVICE DATE: 04/27/2023 Hospital Medicine/Primary Attending: Annmarie Erazo MD CHIEF COMPLAINT: Patient is 73-year-old female past medical history significant for idiopathic pulmonary fibrosis chronic hypoxic respite failure maintained on 4 L nasal cannula hypertension hypothyroidism depression hyperlipidemia presented with left lower quadrant pain CT abdomen showed perforated diverticulitis with abscess. 1 cm ovarian mass. General surgery as well as SAP BODS DEVELOPER consultation was obtained. Seen by pulmonary consultation obtained for possible need for surgical intervention at the chronic idiopathic pulmonary fibrosis. Oncology consultation is recommended by general ICE CRUSHER. SUBJECTIVE: Pt seen and examined. Discussed with and daughter at the bedside. Patient at this time tolerating clear liquid diet.. Noted surgery recommendation. No surgical intervention conservative treatment recommended. Per ICE CRUSHER notes ICE CRUSHER oncology services available at [facility] recommendation transfer to [facility] for further evaluation. Family and the patient are agreeable. Pelvic Ultrasound showed 16.8 cm septated cystic lesion in the left adnexa (O-RADS 4, intermediate risk). The eccentric solid component of the lesion on the comparison CT is not definable sonographically. MRI with contrast has higher specificity for solid lesions and cystic lesions with solid components. CEA 125 8 CEA elevated at 2.9. Leukocytosis trending down. Patient started on IV Zosyn. OBJECTIVE: PHYSICAL EXAM: BP 130/61 Pulse 83 Temp (Src) 98.6 (Oral) Resp 15 Ht 5' 1 (1.55m) Wt 191 lb 12.8 oz (87.0kg) SpO2 98% BMI 36.26 kg/(m2). O2 Therapy: Nasal Cannula, Liters: 4, %FIO2: 4 General - AANDOx3, NAD, Calm CV - RRR S1 S2, No M/R/G RESP - CTA B/L No wheezes, ronchi, rales ABD - soft, vague tenderness no guarding or rigidity EXT - no gross joint deformity, no clubbing, cyanosis, edema NEURO - CN II-XII grossly intact, no focal deficits MEDICATIONS: Current Facility-Administered Medications Medication Dose Route Frequency NaCl 0.9% iv flush bag 20 mL INTRAVENOUS PRN aluminum-magnesium hydroxide-simethicone 200-200-20 mg/5 mL 30 mL 30 mL ORAL DAILY PRN ondansetron 4 mg tab(s) (ZOFRAN) 4 mg ORAL q 6 H PRN Or ondansetron (PF) 4 mg injection (ZOFRAN) 4 mg INTRAVENOUS q 6 H PRN lactated ringers iv infusion 75 mL/hr INTRAVENOUS CONTINUOUS treprostinil CtDv 48 mcg (TYVASO DPI) 48 mcg INHALATION TID albuterol 2.5 mg /3 mL (0.083 %) 2.5 mg (PROVENTIL) 2.5 mg INHALATION q 4 H PRN acetaminophen 975 mg tab(s) (TYLENOL) 975 mg ORAL QID nintedanib 100 mg cap(s) (OFEV) 100 mg ORAL q 12 H mometasone-formoterol 200-5 mcg/actuation 2 Puff inhaler (DULERA) 2 Puff INHALATION BID piperacillin-tazobactam iv piggyback 3.375 g in dextrose (iso-osmotic) 50 mL (ZOSYN) 3.375 g INTRAVENOUS q 8 H morphine 4 mg injection 4 mg INTRAVENOUS q 4 H PRN oxyCODONE IR 2.5-5 mg tab(s) (ROXICODONE) 2.5-5 mg ORAL q 6 H PRN methocarbamol 500 mg tab(s) (ROBAXIN) 500 mg ORAL TID DATA: Diagnostic tests reviewed for today's visit: CBC: Recent Labs 04/27/23457 WBC 14.47* RBC 3.59* HB 10.0* HCT 32.6* PLT 152 MCV 90.8 MCH 27.9 MPV 10.0 Coags: No results for input(s): PT , INR , APTT in the last 24 hours. BMP: Recent Labs 04/27/23457 NA 142 K 3.6 CHLOR 106 CO2 28 BUN 27* CREAT 1.56* GLUC 118* CMP: Recent Labs 04/27/23457 NA 142 K 3.6 CHLOR 106 CO2 28 BUN 27* CREAT 1.56* GLUC 118* TPROT 5.0* CA 8.5 TBILI 1.8* ALKPHOS 75 ALT 15 AST 16 ANION 8 Cardiac Enzymes: No results for input(s): CK , MB , CKMB , TROPT in the last 24 hours. Liver Function, Amylase, Lipase: Recent Labs 04/27/23457 TPROT 5.0* ALB 2.4* ALT 15 AST 16 ALKPHOS 75 TBILI 1.8* MG/PHOS: No results for input(s): MG , P in the last 24 hours. Renal Panel: Recent Labs 04/27/23457 CREAT 1.56* BUN 27* GLUC 118* CA 8.5 CHLOR 106 K 3.6 CO2 28 NA 142 Heme: No results for input(s): RETICP , ABSRETIC , LD , MELI , FE , TIBC , TRANSFERSAT in the last 24 hours. No results found for: UALBCR Estimated Creatinine Clearance: 31.2 mL/min (A) (based on SCr of 1.56 mg/dL (H)). @[facility]@ Assessment/Plan Principal Problem: Acute diverticulitis of intestine with perforation and abscess without bleeding, unspecified part of intestinal tract (POA: Yes) Assessment AND Plan: Continue IV Zosyn 3.375 g every 8 hours. Clear liquid diet and advance as tolerated Left ovarian mass seen by ICE CRUSHER, recommendation is ICE CRUSHER oncology for further recommendation transfer request is placed for [facility] waiting for response Idiopathic pulmonary fibrosi (more content not included)... [facility] 04-26-2023 Miscellaneous Notes A consult has been placed for the gynecologic oncologist to see this patient currently on admission for acute sigmoid diverticulitis with perforation and a left ovarian tumor. Dr. Fab Wilburn. documented in this encounter [facility] 04-26-2023 Note HNO ID: [id number] Author: CANDICE CANADA RPh Service: Pharmacy Author Type: Pharmacist Type: Plan of Care Filed: 04/26/2023 12:43 Note Text: PHARMACY MEDICATION REVIEW Patient Name: Ning Kolb : 1950 The below information represents the best possible medication history: Yes Medication history completed by: ED Pharmacist Candice Canada RPh Source of history: Patient/family: Reliability of source: Appears reliable, clearly identified: Medication name, Medication dose, Medication route, Medication frequency, Timing of last dose, and Indications and Pharmacy records: [facility] Medication nonadherence identified: No barriers noted Preferred outpatient pharmacy: [facility] [place] [address] [address] [facility] [phone] [id number] Allergies: No Known Allergies Prior to Admission Medications Prescriptions Last Dose Informant Patient Reported? Taking? BREO ELLIPTA 200-25 mcg/dose inhaler Yes Yes Sig: Inhale 1 Inhalation as instructed once daily. acetaminophen-codeine (TYLENOL-COD #3) 300-30 mg per tablet Yes Yes Sig: Take 1 tablet by mouth once daily as needed for pain. amLODIPine (NORVASC) 5 mg tablet Yes Yes Sig: Take 5 mg by mouth once daily. atorvastatin (LIPITOR) 20 mg tablet Yes Yes Sig: Take 20 mg by mouth once daily. escitalopram oxalate (LEXAPRO) 10 mg tablet Yes Yes Sig: Take 10 mg by mouth every evening. levothyroxine (SYNTHROID) 25 mcg tablet Yes Yes Sig: Take 25 mcg by mouth daily before breakfast. nintedanib (OFEV) 100 mg capsule Yes Yes Sig: Take 100 mg by mouth every 12 hours. ondansetron (ZOFRAN) 4 mg tablet Yes Yes Sig: Take by mouth every 8 hours as needed for nausea/vomiting. pramipexole (MIRAPEX) 1 mg tablet Yes Yes Sig: Take 1 mg by mouth every evening. treprostinil (TYVASO DPI) 48 mcg cartridge w/inhalation device Yes Yes Sig: Inhale 48 mcg as instructed three times a day. Facility-Administered Medications: None Candice Canada RPh 04/26/2023 [facility] 04-02-2022 Surgical operation note Images from the original note were not included. Patient Name: Ning Kolb Patient Date of Procedure: April 02, 2022 [...] end time: 9:45 AM Staff involved: Abdirahman Ball MD Procedure(s): Right Heart Catheterization. Right Heart Catheterization Indications: Pulmonary Hypertension Pre Procedure Diagnosis: Pulmonary Hypertension Post Procedure Diagnosis: {Pulmonary Arterial Hypertension Medications: NOne Access site: Right internal jugular vein [place] Poly size: 7.0 F. Anesthesia: Lidocaine 1% Procedure Narrative: Consent was obtained. Time out taken. Performed at procedure room in 1. Under sterile condition, lidocaine 1 % (5 ml) was applied and under US guidance a 7.0 F introducer was inserted without difficulty. Wire was noted to be located in the SVC under fluoroscopy. A [place]-Poly catheter was advanced to the right pulmonary [...] (PVR < 3.0) documented in this encounter [facility] 04-01-2022 Miscellaneous Notes Attempted to phone pt regarding upcoming RHC no answer documented in this encounter [facility] 03-25-2022 Miscellaneous Notes I called pt to schedule her RHC. Please add her to the schedule Wed 04/02 @ 9am. Dipti Ann FYI. Please schedule FAVIO AC Summary: Heart Cath referral Patient called today inquiring about her referral to Dr. Ball for her right heart cath. She stated the referral is from Dr. Aggarwal She would like to know if we received her information and would like to schedule as soon as possible. She requested someone call her and update her on the scheduling process. 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 [facility] Diagnosis Pelvic mass in female- Primary [facility] Summary Purpose Family History No Family History Records FoundNo Family History Records FoundNo Family History Records FoundNo Family History Records FoundNo Family History Records Found Advance Directives No Advanced Directives Records FoundLatest Code Status on File Code Status Date Activated Date Inactivated Comments Full Code 04/26/2023 12:33 PM Question Answer Comments Full Code Order Discussed With: Patient Reason for Referral Specialty Diagnoses / Procedures Referred By Contac t Referred To Contact Diagnoses Ovarian tumor Procedures CONSULT TO GYNECOLOGIC/ONCOLOGY OFFICE/OUTPATIENT [facility] 60 MINUTES Fab Wilburn MD [address] [place] [address] Referral ID Status Reason Start Date Expiration Date Visits Requested Visits Authorized [id number] Authorized PCP Requested Referral Auto-Generate d Referral 04/26/2023 04/25/2024 1 1 Specialty Diagnoses / Procedures Referred By Contac t Referred To Contact Radiology Diagnoses Pelvic mass in female Procedures CT abdomen pelvis w contrast Mark Arias MD [address] [place] [address] Referral ID Status Reason Start Date Expiration Date V isits Requested Visits Authorized [id number] Pending Review 05/13/2023 05/12/2024 1 1 Additional Source Comments INFORMATION SOURCE (unrecogn ized section and content) DATE CREATED AUTHOR AUTHOR'S ORGANIZ ATION 03/26/2022 [facility] DATE CREATED AUTHOR AUTHOR'S ORGANIZ ATION 04/10/2022 [facility] DATE CREATED AUTHOR AUTHOR'S ORGANIZ ATION 05/02/2023 [facility] DATE CREATED AUTHOR AUTHOR'S ORGANIZ ATION 05/15/2023 [facility] Source Comments (unrecognize d section and content) In the event this informatio n is protected by the Federal Confidentiality of Alcohol and Drug Abuse Patient Records regulations: The Federal rules restrict any use of the information to criminally investigate or prosecute any alcohol or drug abuse patient.[facility] HealthIn the event this information is protected by the Federal Confidentiality of Alcohol and Drug Abuse Patient Records regulations: The Federal rules restrict any use of the information to criminally investigate or prosecute any alcohol or drug abuse patient.[facility] HealthIn the event this information is protected by the Federal Confidentiality of Alcohol and Drug Abuse Patient Records regulations: The Federal rules restrict any use of the information to criminally investigate or prosecute any alcohol or drug abuse patient.[facility] HealthIn the event this information is protected by the Federal Confidentiality of Alcohol and Drug Abuse Patient Records regulations: The Federal rules restrict any use of the information to criminally investigate or prosecute any alcohol or drug abuse patient.[facility] Reason for Visit (unrecogniz ed section and content) Reason Onset 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 Specialty Diagnoses / Procedures Referred By Contac t Referred To Contact Diagnoses Pulmonary HTN (HCC) Procedures RIGHT HEART CATH O2 SATURATION & CARDIAC OUTPUT RIGHT HEART CATHETERIZATION INCLUDING MEASUREMENT OF OXYGEN SATURATION AND CARDIAC OUTPUT Ak Ivf Embryologist [address] [place] [address] Referral ID Status Reason Start Date Expiration Date Visits Re quested Visits Authorized [id number] 1 1 Reason Comments Female Problem Specialty Diagnoses / Procedures Referred By Contac t Referred To Contact Gynecologic Oncology Diagnoses Other noninflammatory disorders of ovary, fallopian tube and broad ligament Procedures GA OFFICE/OUTPATIENT NEW HIGH MDM 60 MINUTES Lisa Simpson MD [address] [facility] [address] [place] [address] [facility] Ach Security Compliance Specialist Onc [address] [place] [address] Referral ID Status Reason Start Date Expiration Date V isits Requested Visits Authorized [id number] Pending Review 05/06/2023 05/05/2024 1 1 Care Teams (unrecognized sec tion and content) Hand Hardener Relationship Specialty Start Date End Date Lisa Simpson MD [address] [place] [address] PCP - General Geriatric Medicine 05/13/23 Mark Arias MD [address] [place] [address] [address] [place] [address] Consulting Physician Gynecologic Oncology 05/12/23 FOR RECORDS PERTAINING TO PATIENTS WHO ARE [...] BE BASED ON THE PRIMARY CLINICAL RECORDS. [facility]. provides no warranty or guarantee of the accuracy or completeness of information in this document.
== END | disposition home or self-care (01) ==
PROVIDERS: PCP Family Medicine Geriatric Medicine; Referring Provider Internal Medicine Pulmonary Disease; Visit Provider Internal Medicine Pulmonary Disease
DX: R19.7 Diarrhea, unspecified (principal)
CPT/HCPCS: 36415; 87493

== ENCOUNTER → 2023-05-20 | Outpatient (CLI) | payer MEDICARE, SELFPAY ==
--- OUTSIDE RECORDS SUMMARY | 2023-05-20 09:33 | XMS RPT_ITS | CCD ---
Author Name Unknown Address [address] [place] [address] Organization [facility] Care Team Providers Care Program Management Specialist Name Role Phone Ramses Cervantes Unavailable Reggie Garcia Unavailable Unavailable Unavailable Primary Care Provider UnavailABDIRAHMAN Lee Attending Unavailable ABDIRAHMAN BALL Admitting Unavailable Tatiana, Hussain Chi Primary Care Provider ODILIA FREEDMAN Referring Unavailable MIGUE OCONNELL Admitting Unavailnathalie e TATIANA, HUSSAIN CHI Primary Care Unavailable JOSÉ LEAL Attending Unavailable FAB WILBURN Consulting Unavail able Mark Arias MD Unavailable Tatiana HERRING, Hussain-Ming Primary Care Provider HUSSAIN SIMPSON-MING Referring Unavailable TATIANA, HUSSAIN-CHI Primary Care Unavailable MARK ARIAS Unavailable Allergies Allergy Classification Reported Allergen(s) Allergy Type Date of Onset Reaction(s) Facility (1 source) Piperacillin / tazobactam; Translations: [PIPERACILLIN-TRINY OBACTAM] Drug Allergy 04-30-2023 [facility] Repository (1 source) Piperacillin Sod-Tazobactam So Drug Allergy 04-30-2023 [facility] Medications Current Medications Medication Drug Class(es) [...] 154.9 cm Mark Arias MD Work Phone: [facility] 05-13-2023 12:43-0500 Body mass index (BMI) [Ratio] 52.49 kg/m2 Mark Arias MD Work Phone: [facility] 05-13-2023 12:43-0500 Body weight 126.01 kg Mark Arias MD Work Phone: [facility] 05-13-2023 12:43-0500 Diastolic blood pressure 78 mm[Hg] Mark Arias MD Work Phone: [facility] 05-13-2023 12:43-0500 Heart rate 79 /min Mark Arias MD Work Phone: [facility] 05-13-2023 12:43-0500 Systolic blood pressure 121 mm[Hg] Mark Arias MD Work Phone: [facility] 04-02-2022 10:07-0500 Diastolic blood pressure 85 mm[Hg] Abdirahman Ball MD Work Phone: [facility] 04-02-2022 10:07-0500 Heart rate 75 /min Abdirahman Ball MD Work Phone: [facility] 04-02-2022 10:07-0500 Respiratory rate 18 /min Abdirahman Ball MD Work Phone: [facility] 04-02-2022 10:07-0500 SaO2% (BldA) [Mass fraction] 97 % Abdirahman Ball MD Work Phone: [facility] 04-02-2022 10:07-0500 Systolic blood pressure 154 mm[Hg] Abdirahman Ball MD Work Phone: [facility] 04-02-2022 09:00-0500 Body height 154.9 cm Abdirahman Ball MD Work Phone: [facility] 04-02-2022 09:00-0500 Body weight 79.38 kg Abdirahman Ball MD Work Phone: [facility] 04-02-2022 08:02-0500 Body temperature 98.2 [degF] Abdirahman Ball MD Work Phone: [facility] 12-12-2016 12:37-0400 BMI (Body Mass Index) 30.23 kg/m2 Ramses [facility] Work Phone: 12-12-2016 12:37-0400 Body Temperature 98.5 [degF] Ramses [facility] Work Phone: 12-12-2016 12:37-0400 BP Diastolic 92 mm[Hg] Ramses [facility] Work Phone: 12-12-2016 12:37-0400 BP Diastolic 84 mm[Hg] Ramses [facility] Work Phone: 12-12-2016 12:37-0400 BP Systolic 122 mm[Hg] Ramses [facility] Work Phone: 12-12-2016 12:37-0400 BP Systolic 124 mm[Hg] Ramses [facility] Work Phone: 12-12-2016 12:37-0400 Height 154.94 cm Ramses [facility] Work Phone: 12-12-2016 12:37-0400 Pulse (Heart Rate) 97 /min Ramses [facility] Work Phone: 12-12-2016 12:37-0400 Respiratory Rate 14 /min Ramses [facility] Work Phone: 12-12-2016 12:37-0400 Weight 72.58 kg Ramses [facility] Work Phone: Encounters Encounter Date Encounter Type Care Provider Facility Start: 05-13-2023 End: 05-13-2023 ambulatory HUSSAIN-CHI TATIANA [facility] Start: 05-13-2023 End: 05-13-2023 Office outpatient new 30 minutes Mark Arias MD Work Phone: [facility] Gynecologic Oncology Procedures Date Procedure Procedure Detail Performing Clinician Start: 04-02-2022 End: 04-02-2022 O2 SATURATION (POC) Abdirahman Ball MD Work Phone: Plan of Treatment Date Care Activity Detail Author Start: 09-05-2030 DTaP/Tdap/Td Vaccine s (4 - Td or Tdap) DTaP/Tdap/Td Vaccines (4 - Td or Tdap) [facility] Start: 04-26-2026 Diabetes Screening Diabetes Screenin g [facility] Start: 08-12-2023 End: 05-13-2024 CT Abdomen and Pelvis W contrast IV CT abdomen pelvis w contrast Imaging Routine Pelvic mass in female Expected: 08/12/2023, Expires: 05/13/2024 [facility] Work Phone: Immunizations Immunization Date Immunization Notes Care Provider Aviva reyes 01-25-2018 influenza virus vacc ine, unspecified formulation Fab Wilburn MD Work Phone: [facility] Payers Date Payer Category Payer Unknown MADI GAMINO PPO [id number] 2022-2022 [address] [place] [address] PPO [id number] 2019 Medicare [id number] 2019 Private Health Insurance [id number] Unknown [id number] Social History Date Type Detail [facility] Start: 1950 Sex Assigned At Not on file [facility] Start: 04-26-2023 End: 05-12-2023 Tobacco smoking status IDIS Never smoked tobacco [facility] Start: 04-26-2023 End: 05-12-2023 Tobacco use and exposure Smokeless tobacco non-user [facility] Start: 04-26-2023 End: 05-13-2023 Alcohol intake Lifetime non-drinker (finding) [facility] Start: 04-26-2023 End: 05-13-2023 History of Social function [facility] Start: 04-26-2023 End: 05-13-2023 Tobacco use panel [facility] Clinical Notes 03-25-2022 to 05-13-2023 Mark Arias [...] heart failure. Patient was subsequently transferred to [facility]. The diverticulitis was treated conservatively without surgery. [...] evident sonographically. [place] is Dr Aggarwal in [place]. Patient is been oxygen dependent for 5 [...] nursing note reviewed. Exam conducted with a logging equipment mechanic present. Constitutional: Appearance: She is ill-appearing. Pulmonary: [...] difficult and possibly (more content not included)... [facility] 05-13-2023 History of Present illness Narrative HPI: [...] heart failure. Patient was subsequently transferred to [facility]. The diverticulitis was treated conservatively without surgery. [...] evident sonographically. [place] is Dr Aggarwal in [place]. Patient is been oxygen dependent for 5 [...] nursing note reviewed. Exam conducted with a logging equipment mechanic present. Constitutional: Appearance: She is ill-appearing. Pulmonary: [...] was 35 minutes documented in this encounter [facility] 04-30-2023 Note HNO ID: [id number] Author: JOSÉ LEAL MD Service: Hospital Medicine [...] Prophylaxis/Anticoagulants 04/26/23 1245 vte pharmacologic prophylaxis contraindicated (de,al) 04/26/23 1245 pneumatic compression stockings ([place], [place]) 04/26/23 1245 activity - mobilize patient ([place], [place]) VTE Prophylaxis: VTE prophylaxis appropriate Assesment: Acute bowel perforation secondary to diverticulitis and abscess without bleeding Obesity BMI 36 Pulmonary fibrosis Chronic respiratory failure with hypoxia Left ovarian mass Pancreatic mass Anemia Acute kidney injury Suspected GI bleed Plan *Continue pain management, continue Augmentin for 10 more days as per general surgery recommendation follow-up as outpatient RADIO SURVEY WORKER as well recommend follow-up as outpatient. *Continue [...] continue IV hy (more content not included)... [facility] 04-29-2023 Note HNO ID: [id number] Author: JOSÉ LEAL MD Service: Hospital Medicine [...] Prophylaxis/Anticoagulants 04/26/23 1245 vte pharmacologic prophylaxis contraindicated ([place]) 04/26/23 1245 pneumatic compression stockings ([place]) 04/26/23 1245 activity - mobilize patient ([place], [place]) VTE Prophylaxis: VTE prophylaxis appropriate Assesment: Acute bowel perforation secondary to diverticulitis and abscess without bleeding Obesity BMI 36 Pulmonary fibrosis Chronic respiratory failure with hypoxia Left ovarian mass Pancreatic mass Anemia Acute kidney injury Abnormal bilirubin Plan *Continue pain management, continue Augmentin for 10 more days as per general surgery recommendation follow-up as outpatient RADIO SURVEY WORKER as well recommend follow-up as outpatient. *Continue [...] NAME: Ning Kolb DATE: April 29, 2023 [facility] 04-28-2023 Note HNO ID: [id number] Author: ANNMARIE ERAZO MD Service: Hospital Medicine [...] ovarian mass. General surgery as well as ENGINE MONITOR consultation was obtained. Seen by pulmonary consultation obtained for possible need for surgical intervention at the chronic idiopathic pulmonary fibrosis. Oncology consultation is recommended by general RADIO SURVEY WORKER. Per surgery conservative treatment. Diet resumed. Per RADIO SURVEY WORKER patient is to be transferred to [facility] for general surgery and RADIO SURVEY WORKER oncology evaluation in case surgical intervention is needed and due to her chronic respiratory status both surgeries can be done in 1 setting. Since patient is tolerating diet well [facility] denied the transfer request. Per RADIO SURVEY WORKER oncology at [facility] patient can follow-up with RADIO SURVEY WORKER as an outpatient for ovarian mass. Pelvic [...] (based on SCr of 1.29 mg/dL (H)). @[facility]@ Assessment/Plan Principal Problem: Acute diverticulitis of intestine with perforation and abs (more content not included)... [facility] 04-27-2023 Note HNO ID: [id number] Author: ODILIA SIERRA MD Service: Obstetrics Author Type: Physician Type: Progress Notes Filed: 04/27/2023 18:59 Note Text: ENGINE MONITOR CONSULT PROGRESS NOTE SERVICE DATE: 04/27/2023 SERVICE TIME: 1600 Subjective HISTORY OF THE PRESENT ILLNESS: This 73 year old HD#1 admitted for perforated diverticulitis with incidental finding of a large L ovarian cyst. US today showed a 16.8 cm L ovarian cyst with septations and O-RADS 4. Discussed findings with the patient and recommendation for consultation with RADIO SURVEY WORKER/ONC which is not available at this facility. [...] left (POA: Unknown) Assessment AND Plan: Recommend RADIO SURVEY WORKER/ONC consultation for further evaluation and management. If surgery is not urgently needed for the diverticulitis the patient would benefit from being at a facility that could address both problems during a single surgery. RADIO SURVEY WORKER will sign off. Pancreatic mass (POA: Unknown) Plan of care discussed with: Provider, RN, Patient. SIGNATURE: Odilia Sierra MD PATIENT NAME: Ning Kolb DATE: April 27, 2023 TIME: 6:49 PM PAGER: [facility] 04-27-2023 Note HNO ID: [id number] Author: ANNMARIE ERAZO MD Service: Hospital Medicine [...] ovarian mass. General surgery as well as ENGINE MONITOR consultation was obtained. Seen by pulmonary consultation obtained for possible need for surgical intervention at the chronic idiopathic pulmonary fibrosis. Oncology consultation is recommended by general RADIO SURVEY WORKER. SUBJECTIVE: Pt seen and examined. Discussed with and daughter at the bedside. Patient at this time tolerating clear liquid diet.. Noted surgery recommendation. No surgical intervention conservative treatment recommended. Per RADIO SURVEY WORKER notes RADIO SURVEY WORKER oncology services available at [facility] recommendation transfer to [facility] for further evaluation. Family and the patient [...] (based on SCr of 1.56 mg/dL (H)). @[facility]@ Assessment/Plan Principal Problem: Acute diverticulitis of intestine with perforation and abscess without bleeding, unspecified part of intestinal tract (POA: Yes) Assessment AND Plan: Continue IV Zosyn 3.375 g every 8 hours. Clear liquid diet and advance as tolerated Left ovarian mass seen by RADIO SURVEY WORKER, recommendation is RADIO SURVEY WORKER oncology for further recommendation transfer request is placed for [facility] waiting for response Idiopathic pulmonary fibrosi (more content not included)... [facility] 04-26-2023 Miscellaneous Notes A consult has been placed for the gynecologic oncologist to see this patient currently on admission for acute sigmoid diverticulitis with perforation and a left ovarian tumor. Dr. Fab Wilburn. documented in this encounter [facility] 04-26-2023 Note HNO ID: [id number] Author: CANDICE CANADA RPh Service: Pharmacy Author [...] identified: No barriers noted Preferred outpatient pharmacy: [facility] [place] [place] [address] - [address] [facility] [phone] [id number] Allergies: No Known Allergies Prior to [...] Facility-Administered Medications: None Candice Canada RPh 04/26/2023 [facility] 04-02-2022 Surgical operation note Images from the [...] NOne Access site: Right internal jugular vein Ringwood Poly size: 7.0 F. Anesthesia: Lidocaine 1% Procedure Narrative: Consent was obtained. Time out taken. Performed at procedure room in 1. Under sterile condition, lidocaine 1 % (5 ml) was applied and under US guidance a 7.0 F introducer was inserted without difficulty. Wire was noted to be located in the SVC under fluoroscopy. A Ringwood-Poly catheter was advanced to the right pulmonary [...] (PVR < 3.0) documented in this encounter [facility] 04-01-2022 Miscellaneous Notes Attempted to phone pt regarding upcoming RHC no answer documented in this encounter [facility] 03-25-2022 Miscellaneous Notes I called pt to [...] process. Mattie Griggs documented in this encounter [facility] Diagnosis Pulmonary hypertension (HCC)- Primary Other chronic pulmonary heart diseases [facility] Diagnosis Ovarian tumor- Primary Neoplasm of unspecified nature of other genitourinary organs documented [facility] [place] [facility] Diagnosis Pelvic mass in female- Primary [facility] Purpose Family History [...] Ovarian tumor Procedures CONSULT TO GYNECOLOGIC/ONCOLOGY OFFICE/OUTPATIENT [facility] 60 MINUTES Fab Wilburn MD [address] [place] [address] Referral ID Status Reason Start Date Expiration Date Visits Requested Visits Authorized [id number] Authorized PCP Requested Referral Auto-Generate d Referral 04/26/2023 04/25/2024 1 1 Specialty Diagnoses / Procedures Referred By Contac t Referred To Contact Radiology Diagnoses Pelvic mass in female Procedures CT abdomen pelvis w contrast Mark Arias MD [address] [facility] [address] [place] [address] Referral ID Status Reason Start Date Expiration Date V isits Requested Visits Authorized [id number] Pending Review 05/13/2023 05/12/2024 1 1 Additional Source Comments INFORMATION SOURCE (unrecogn ized section and content) DATE CREATED AUTHOR AUTHOR'S ORGANIZ ATION 03/26/2022 [facility] DATE CREATED AUTHOR AUTHOR'S ORGANIZ ATION 04/10/2022 [facility] DATE CREATED AUTHOR AUTHOR'S ORGANIZ ATION 05/02/2023 [facility] DATE CREATED AUTHOR AUTHOR'S ORGANIZ ATION 05/15/2023 [facility] Source Comments (unrecognize d section and content) In the event this informatio n is protected by the Federal Confidentiality of Alcohol and Drug Abuse Patient Records regulations: The Federal rules restrict any use of the information to criminally investigate or prosecute any alcohol or drug abuse patient.[facility] the event this information is protected by the Federal Confidentiality of Alcohol and Drug Abuse Patient Records regulations: The Federal rules restrict any use of the information to criminally investigate or prosecute any alcohol or drug abuse patient.[facility] the event this information is protected by the Federal Confidentiality of Alcohol and Drug Abuse Patient Records regulations: The Federal rules restrict any use of the information to criminally investigate or prosecute any alcohol or drug abuse patient.[facility] the event this information is protected by the Federal Confidentiality of Alcohol and Drug Abuse Patient Records regulations: The Federal rules restrict any use of the information to criminally investigate or prosecute any alcohol or drug abuse patient.[facility] Reason for Visit (unrecogniz ed section and content) Reason Onset Date Comments Events Associate - Other 04/01/2022 Specialty Diagnoses / Procedures Referred By Contac t Referred To Contact Diagnoses Pulmonary HTN (HCC) Procedures RIGHT HEART CATH O2 SATURATION & CARDIAC OUTPUT RIGHT HEART CATHETERIZATION INCLUDING MEASUREMENT OF OXYGEN SATURATION AND CARDIAC OUTPUT Ak Entry Level Java Developer [address] [place] [address] Referral ID Status Reason Start Date Expiration Date Visits Re quested Visits Authorized [id number] 1 1 Reason Comments Female Problem Specialty Diagnoses / Procedures Referred By Contac t Referred To Contact Gynecologic Oncology Diagnoses Other noninflammatory disorders of ovary, fallopian tube and broad ligament Procedures DE OFFICE/OUTPATIENT NEW HIGH MDM 60 MINUTES Lisa Simpson MD [address] [facility] [address] [place] [address] [facility] Ach Project Production Engineer Onc [address] [place] [address] Referral ID Status Reason Start Date Expiration Date V isits Requested Visits Authorized [id number] Pending Review 05/06/2023 05/05/2024 1 1 Care Teams (unrecognized sec tion and content) Program Management Specialist Relationship Specialty Start Date End Date Lisa Simpson MD [address] [place] [address] PCP - General Geriatric Medicine 05/13/23 Mark Arias MD [address] [place] [address] [address] [place] [address] Consulting Physician Gynecologic Oncology 05/12/23 FOR RECORDS [...] BE BASED ON THE PRIMARY CLINICAL RECORDS. [facility]. provides no warranty or guarantee of the accuracy or completeness of information in this document.
== END | disposition home or self-care (01) ==
LOC: PSN 08:52
PROVIDERS: PCP Family Medicine Geriatric Medicine; Referring Provider Family Medicine Geriatric Medicine; Visit Provider Family Medicine Geriatric Medicine
DX: R68.83 Chills (without fever) (principal)
CPT/HCPCS: 87631

== ENCOUNTER → 2023-07-08 | Outpatient (CLI) | payer MEDICARE, SELFPAY ==
--- NOTE | 2023-07-08 14:06 | CT_ITS ---
STUDY: CT ABDOMEN AND PELVIS WITH CONTRAST REASON FOR EXAM: Female, 73 years old. Intra-abdominal and pelvic swelling, mass and lump RADIATION DOSAGE (If Supplied By Facility): CTDIvol = ( 17.5 ) mGy, DLP = ( 1220.91 ) mGycm TECHNIQUE: Oral and amp; IV Readi-CAT and amp; 100mL Isovue-370 was administered. Transaxial images were obtained from the dome of the diaphragm to the symphysis pubis. Multiplanar coronal and sagittal images were reformatted. Individualized Dose Optimization Techniques Were Used For This CT. COMPARISON: Prior study dated: 04/26/2023 FINDINGS: The visualized portions of lung bases demonstrate mild chronic changes. The heart is within normal limits in size. Coronary calcifications. No evidence of pericardial effusion. Lobe liver lesion unchanged representing cyst. Normal gallbladder and extrahepatic biliary system. Persistent 2.7 cm cystic lesion near the junction of the head and body of the pancreas unchanged since the prior examination. No peripancreatic inflammatory changes. Unremarkable spleen. Unremarkable kidneys. No evidence of hydronephrosis. Normal bilateral adrenal glands. Normal visualized stomach. Normal small intestine. Essentially resolved with acute diverticulitis. There is however residual small fluid collection between the sigmoid colon and the pelvic mass measuring about 1.2 cm could reflect residual abscess. The appendix is visualized and appears normal. Normal urinary bladder. There again is a large cystic with solid component lesion in the left ovarian/adnexal region measuring about 14 x 10 x 7 cm essentially unchanged. Absent uterus. Normal abdominal wall. Degenerative changes of the lumbar spine particularly at the level of L4-5 and L5-S1. Mild anterolisthesis of L5 over S1. CT/Abdomen/Pelvis WITH Contrast IMPRESSION: 1. Essentially resolved acute diverticulitis. Persistent small fluid collection posterior to the sigmoid colon and anterior to the pelvic mass markedly decreased in size previous exam could represent residual abscess. 2. Large pelvic mass unchanged. Further evaluation with MRI with contrast is recommended if has not already been done. 3. Stable pancreatic cystic lesion unchanged. 4. Otherwise no focal acute inflammatory process. Electronically Signed: Rock Caldera MD at 15:06 EDT ,
[2023-07-08 14:46] LABS: CREATININE FINGERSTICK < 1.0 mg/dL (0.55-1.02)
== END | disposition home or self-care (01) ==
PROVIDERS: PCP Family Medicine Geriatric Medicine; Referring Provider Obstetrics & Gynecology Gynecologic Oncology; Visit Provider Obstetrics & Gynecology Gynecologic Oncology
DX: R19.00 Intra-abdominal and pelvic swelling, mass and lump, unspecified site (principal)
CPT/HCPCS: 74177; Q9967

== ENCOUNTER → 2023-11-23 | Outpatient (CLI) | payer MEDICARE, SELFPAY ==
[2023-11-23 14:47] LABS: Absolute Lymphocyte Count 1.85 X10^3/uL (0.83-4.51); Absolute Neutrophil Count 4.7 X10^3/uL (2.0-7.7); Basophil# 0.02 X10^3/uL; Basophil% 0.3 % (0-1); Eosinophil# 0.47 X10^3/uL; Eosinophils% 6.1 % (0-5); Hematocrit 34.3 % (37-47); Hemoglobin 10.3 g/dL (12.0-15.0); Lymphocyte # 1.85 X10^3/ul (0.83-4.51); Lymphocyte % 24.1 % (19-41); Mean Corpuscular Hgb 27.6 pg (27.0-32.0); Monocyte# 0.58 X10^3/uL; Monocyte% 7.6 % (0-10); NRBC Flagged by Analyzer 0 % (0-5); Neutrophil # 4.73 X10^3/uL (2.7-7.7); Neutrophil % 61.5 % (47-70); Platelet Count 230 K/mm3 (150-450); RBC Distribution Width CV 15.9 % (11.6-14.6); RBC Distribution Width SD 53.1 fl (35.1-43.9); Red Blood Count 3.73 M/mm3 (4.2-5.4); White Blood Count 7.7 K/mm3 (4.4-11.0)
[2023-11-23 15:15] LABS: Vitamin D,25 Hydroxy 33.2 ng/mL
[2023-11-23 15:21] LABS: AST(SGOT) 15 U/L (15-37); Alanine Aminotransfer ALT/SGPT 16 U/L (13-56); Albumin, Serum 3.3 g/dL (3.2-5.0); Alkaline Phosphatase 96 U/L (45-117); Anion Gap 6 (5-15); BUN 12 mg/dL (7-18); BUN/Creat Ratio 12.8 RATIO (10-20); Calcium,Total 8.8 mg/dL (8.5-10.1); Chloride 107 mmol/L (98-107); Cholesterol 168 mg/dL (200); Creatinine, Serum 0.94 mg/dL (0.55-1.02); EST Glomerular Filtration Rate 62 mL/min (>60); Est Glom Filt Rate - Afr Amer 75 mL/min (>60); Globulin 3.3 g/dL (2.2-4.2); Glucose 93 mg/dL (74-106); High Density Lipoprotein 40 mg/dL; Potassium 4.7 mmol/L (3.5-5.1); Protein, Total 6.6 g/dL (6.4-8.2); Sodium Level 145 mmol/L (136-145); Thyroid Stim Hormone (TSH) 2.64 uIU/mL (0.358-3.74); Triglycerides 145 mg/dL; Very Low Density Lipoprotein 29 mg/dL (5-40)
--- NOTE | 2023-11-23 15:45 | RAD_ITS ---
STUDY: X-RAY - ABDOMEN/PELVIS REASON FOR EXAM: Female, 73 years old. CHRONIC DIARRHEA TECHNIQUE: Single AP view of the abdomen / pelvis. COMPARISON: None. FINDINGS: Normal visualized lung bases. There is an unremarkable bowel gas pattern. The visualized liver, spleen and kidneys are grossly normal in size and morphology. Normal soft tissue structures. Normal visualized osseous structures. RAD/Abdomen Single View IMPRESSION: Normal x-ray examination of the abdomen and pelvis. Electronically Signed: Justino Rosenberg MD at 9:29 EDT ,
== END | disposition home or self-care (01) ==
LOC: POLAB3 14:32
PROVIDERS: PCP Family Medicine Geriatric Medicine; Visit Provider Family Medicine Geriatric Medicine
DX: K52.9 Noninfective gastroenteritis and colitis, unspecified (principal); I10 Essential (primary) hypertension; E55.9 Vitamin D deficiency, unspecified; E78.5 Hyperlipidemia, unspecified
CPT/HCPCS: 36415; 74018; 80053; 80061; 82306; 84443; 85025

== ENCOUNTER → 2023-12-10 | Outpatient (CLI) | payer MEDICARE, SELFPAY ==
[2023-12-10 16:47] LABS: Bacteria 0 SEEN /hpf (None Seen); Mucous, Urine 0 SEEN /hpf (<or=2+); Red Blood Cells-Urine 0 SEEN /hpf (0-5); Squamous Epithelial Cells - UA 0 SEEN /hpf (5-10); White Blood Cells 0 SEEN /hpf (0-5)
[2023-12-10 17:04] LABS: Absolute Lymphocyte Count 0.85 X10^3/uL (0.83-4.51); Absolute Neutrophil Count 4.8 X10^3/uL (2.0-7.7); Basophil# 0.01 X10^3/uL; Basophil% 0.2 % (0-1); Eosinophil# 0.35 X10^3/uL; Eosinophils% 5.4 % (0-5); Hematocrit 33.6 % (37-47); Hemoglobin 10.2 g/dL (12.0-15.0); Lymphocyte # 0.85 X10^3/ul (0.83-4.51); Mean Corp Hgb Conc 30.4 g/dL (32-36); Mean Corpuscular Hgb 27.6 pg (27.0-32.0); Mean Corpuscular Volume 91.1 fL (81-99); Mean Platelet Vol. 9.6 fl (6.2-12.0); Monocyte# 0.47 X10^3/uL; Monocyte% 7.2 % (0-10); NRBC Flagged by Analyzer 0 % (0-5); Neutrophil # 4.84 X10^3/uL (2.7-7.7); Neutrophil % 73.9 % (47-70); Platelet Count 209 K/mm3 (150-450); RBC Distribution Width CV 15.1 % (11.6-14.6); Red Blood Count 3.69 M/mm3 (4.2-5.4); White Blood Count 6.5 K/mm3 (4.4-11.0)
[2023-12-10 17:12] LABS: Color, Urine Yellow (Yellow); Glucose, Dipstick Normal (Normal); Ketone-Dipstick Negative (Negative); Leukocyte Esterase-Dipstick 25 /ul (Negative); Nitrite-Dipstick Positive (Negative); Occult Blood-Urine Negative /ul (Negative); Protein-Dipstick 15 mg/dl (Negative); Specific Gravity, Urine 1.015 (1.002-1.030); Urine Bilirubin Dipstick Negative (Negative); Urine Clarity Clear (Clear); Urine Urobilinogen Normal (Normal)
[2023-12-10 17:52] LABS: ALB/GLOB Ratio 1.1 RATIO (0.9-2.4); AST(SGOT) 16 U/L (15-37); Alanine Aminotransfer ALT/SGPT 15 U/L (13-56); Albumin, Serum 3.3 g/dL (3.2-5.0); Alkaline Phosphatase 90 U/L (45-117); Anion Gap 2 (5-15); BUN 10 mg/dL (7-18); BUN/Creat Ratio 12.1 RATIO (10-20); Calcium,Total 9.1 mg/dL (8.5-10.1); Chloride 104 mmol/L (98-107); Creatinine, Serum 0.82 mg/dL (0.55-1.02); EST Glomerular Filtration Rate 72 mL/min (>60); Est Glom Filt Rate - Afr Amer 87 mL/min (>60); Globulin 3.1 g/dL (2.2-4.2); Glucose 130 mg/dL (74-106); Potassium 4.3 mmol/L (3.5-5.1); Protein, Total 6.4 g/dL (6.4-8.2); Sodium Level 141 mmol/L (136-145)
== END | disposition home or self-care (01) ==
LOC: POLAB3 16:45
PROVIDERS: PCP Family Medicine Geriatric Medicine; Visit Provider Family Medicine Geriatric Medicine
DX: N39.0 Urinary tract infection, site not specified (principal); I10 Essential (primary) hypertension; R53.83 Other fatigue; R42 Dizziness and giddiness
CPT/HCPCS: 36415; 80053; 81001; 84443; 85025; 87077; 87086; 87088; 87186

== ENCOUNTER → 2024-05-26 | Outpatient (CLI) | payer MEDICARE, SELFPAY ==
[2024-05-26 14:34] LABS: Absolute Lymphocyte Count 1.56 X10^3/uL (0.83-4.51); Absolute Neutrophil Count 4.3 X10^3/uL (2.0-7.7); Basophil# 0.02 X10^3/uL; Basophil% 0.3 % (0-1); Eosinophil# 0.42 X10^3/uL; Eosinophils% 6.1 % (0-5); Hematocrit 36.1 % (37-47); Hemoglobin 10.6 g/dL (12.0-15.0); Lymphocyte # 1.56 X10^3/ul (0.83-4.51); Lymphocyte % 22.6 % (19-41); Mean Corp Hgb Conc 29.4 g/dL (32-36); Mean Corpuscular Hgb 26.6 pg (27.0-32.0); Mean Corpuscular Volume 90.5 fL (81-99); Mean Platelet Vol. 9.5 fl (6.2-12.0); Monocyte# 0.52 X10^3/uL; Monocyte% 7.5 % (0-10); NRBC Flagged by Analyzer 0 % (0-5); Neutrophil % 62.2 % (47-70); Platelet Count 266 K/mm3 (150-450); RBC Distribution Width CV 15.2 % (11.6-14.6); RBC Distribution Width SD 50.3 fl (35.1-43.9); Red Blood Count 3.99 M/mm3 (4.2-5.4); White Blood Count 6.9 K/mm3 (4.4-11.0)
[2024-05-26 15:11] LABS: AST(SGOT) 17 U/L (15-37); Alanine Aminotransfer ALT/SGPT 24 U/L (13-56); Albumin, Serum 3.4 g/dL (3.2-5.0); Alkaline Phosphatase 85 U/L (45-117); Anion Gap 3 (5-15); BUN 11 mg/dL (7-18); BUN/Creat Ratio 12.2 RATIO (10-20); Calcium,Total 9.1 mg/dL (8.5-10.1); Chloride 102 mmol/L (98-107); Cholesterol 156 mg/dL (200); EST Glomerular Filtration Rate 65 mL/min (>60); Est Glom Filt Rate - Afr Amer 78 mL/min (>60); Globulin 3.3 g/dL (2.2-4.2); Glucose 107 mg/dL (74-106); High Density Lipoprotein 41 mg/dL; Potassium 3.8 mmol/L (3.5-5.1); Protein, Total 6.7 g/dL (6.4-8.2); Sodium Level 142 mmol/L (136-145); Triglycerides 144 mg/dL; Very Low Density Lipoprotein 29 mg/dL (5-40)
[2024-05-26 15:39] LABS: Vitamin D,25 Hydroxy 13.1 ng/mL
== END | disposition home or self-care (01) ==
PROVIDERS: PCP Family Medicine Geriatric Medicine; Visit Provider Family Medicine Geriatric Medicine
DX: I10 Essential (primary) hypertension (principal); E55.9 Vitamin D deficiency, unspecified; E78.5 Hyperlipidemia, unspecified
CPT/HCPCS: 36415; 80053; 80061; 82306; 84443; 85025

== ENCOUNTER → 2024-07-04 | Outpatient (CLI) | payer MEDICARE, SELFPAY ==
--- NOTE | 2024-07-04 15:56 | CT_ITS ---
PROCEDURE: CHEST WITHOUT CONTRAST 07/04/2024 REASON FOR EXAM: PULM HYPERTENSION, ASTHMA, BRONCHIECTASIS TECHNIQUE: Chest CT without contrast. Coronal and Sagittal reconstruction series were provided. One or more dose reduction techniques were used (e.g., Automated exposure control, adjustment of the mA and/or kV according to patient size, use of iterative reconstruction technique COMPARISON: 10/2021 RADIATION DOSE SUMMARY: CTDlvol: 15.45 mGy DLP: 474.7 mGycm FINDINGS: The main pulmonary artery is enlarged at 3.6 cm compatible pulmonary hypertension. No pneumothorax. No pleural effusion. Features of fibrosis again detected with peripheral honeycombing as well as bibasilar bronchiectasis. Degree is not measurably progressed from prior examination. The heart size is enlarged. Robust coronary artery calcification. Tortuous vascularity suggests systemic hypertension stable hilar and mediastinal lymph nodes presumed reactive. Hepatic steatosis. Stable thoracic aorta. Demineralization of the bones. CT/Chest without Contrast IMPRESSION: Similar appearance to prior examination with features of pulmonary fibrosis. E nlarged main pulmonary artery compatible with pulmonary arterial hypertension. Bibasilar predominant honeycombing and bronch iectasis overall similar. Three-vessel coronary artery calcification. Hepatic steatosis. Demineralized bones. Reading Location: [facility]
== END | disposition home or self-care (01) ==
PROVIDERS: PCP Family Medicine Geriatric Medicine; Referring Provider Internal Medicine Pulmonary Disease; Visit Provider Internal Medicine Pulmonary Disease
DX: I27.0 Primary pulmonary hypertension (principal); J47.9 Bronchiectasis, uncomplicated; J45.40 Moderate persistent asthma, uncomplicated
CPT/HCPCS: 71250

== ENCOUNTER → 2024-07-27 | Outpatient (CLI) | payer MEDICARE, SELFPAY ==
[2024-07-27 15:20] LABS: Absolute Lymphocyte Count 1.11 X10^3/uL (0.83-4.51); Basophil# 0.03 X10^3/uL; Basophil% 0.4 % (0-1); Eosinophil# 0.51 X10^3/uL; Hematocrit 34.4 % (37-47); Hemoglobin 10.7 g/dL (12.0-15.0); Lymphocyte # 1.11 X10^3/ul (0.83-4.51); Lymphocyte % 15.2 % (19-41); Mean Corp Hgb Conc 31.1 g/dL (32-36); Mean Corpuscular Hgb 28.5 pg (27.0-32.0); Mean Corpuscular Volume 91.5 fL (81-99); Mean Platelet Vol. 9.6 fl (6.2-12.0); Monocyte# 0.59 X10^3/uL; Monocyte% 8.1 % (0-10); NRBC Flagged by Analyzer 0 % (0-5); Neutrophil # 4.99 X10^3/uL (2.7-7.7); Neutrophil % 68.3 % (47-70); Platelet Count 200 K/mm3 (150-450); RBC Distribution Width CV 15.5 % (11.6-14.6); Red Blood Count 3.76 M/mm3 (4.2-5.4); White Blood Count 7.3 K/mm3 (4.4-11.0)
[2024-07-27 16:15] LABS: Anion Gap 9 (5-15); BUN 13 mg/dL (4-19); CRP 5.82 mg/L (0.0-3.0); Calcium,Total 9.3 mg/dL (7.6-11.0); Chloride 103 mmol/L (98-108); Creatinine, Serum 0.75 mg/dL (0.70-1.20); EST Glomerular Filtration Rate 82 (>60); Glucose 84 mg/dL (70-99); Potassium 4.3 mmol/L (3.3-5.1); Sodium Level 142 mmol/L (133-145)
[2024-07-28 10:49] LABS: Erythrocyte Sedimentation Rate 11 mm/hr (0-30)
== END | disposition home or self-care (01) ==
PROVIDERS: PCP Family Medicine Geriatric Medicine; Referring Provider Family Medicine Geriatric Medicine; Visit Provider Family Medicine Geriatric Medicine
DX: L02.91 Cutaneous abscess, unspecified (principal); L03.313 Cellulitis of chest wall; I10 Essential (primary) hypertension
CPT/HCPCS: 36415; 80048; 85025; 85652; 86140; 87070; 87205

== ENCOUNTER 2024-09-13 21:43 | Emergency (ER) | payer MEDICARE, SELFPAY ==
[2024-09-13 21:46] VITALS: BP 158/88; PULSE 92; RESP 24; TEMP 36.5; O2SAT 97
--- NOTE | 2024-09-13 21:58 | US_ITS ---
PROCEDURE: VENOUS DUPLEX IMAG/LIMITED/UNI 09/13/2024 REASON FOR EXAM: F 74 y/o TECHNIQUE: Grayscale color flow and doppler analysis of the right lower extremity. COMPARISON: None FINDINGS: There is no intraluminal echogenicity to suggest the presence of a deep venous thrombosis. Appropriate respiratory variation, augmentation and venous compression is noted. US/Venous Duplex Imag/Limited/Uni IMPRESSION: No deep venous thrombosis identified in the extremity. Reading Location: [facility]
--- NOTE | 2024-09-13 22:37 | EX.ED.DYSGE1 ---
HPI History of Present Illness Chief Complaint: Edema PFSH PFSH Medical History IPF (idiopathic pulmonary fibrosis) Fatigue HTN (hypertension) Home Medications ?Medication ?Instructions ?Recorded ?Last Taken ?Type escitalopram oxalate 10 mg tablet 10 mg PO QHS 30 days ##30 06/22/17 Unknown History pramipexole 0.125 mg tablet 1 mg PO QHS 05/05/18 Unknown History levothyroxine 25 mcg tablet 25 mcg PO DAILY 10/22/20 Unknown History nintedanib 150 mg capsule (Ofev) 150 mg PO BID 04/16/21 Unknown History amlodipine 5 mg tablet 5 mg PO DAILY 04/17/23 Unknown History nintedanib 100 mg capsule (Ofev) 100 mg PO Q12H 04/17/23 Unknown History ondansetron HCl 8 mg tablet 8 mg PO BID 04/17/23 Unknown History dexamethasone 6 mg tablet 6 mg PO DAILY #5 tabs 09/26/23 Unknown Rx sulfamethoxazole 800 1 tab PO BID 7 days #14 tabs 09/13/24 Unknown Rx mg-trimethoprim 160 mg tablet (Bactrim DS) Allergy/AdvReac Type Severity Reaction Status Date / Time No Known Allergies Allergy Verified 09/13/24 21:44 Family History no significant family his Social History Smoking Status: Former smoker alcohol intake: never EXAM Physical Exam Const Vital Signs: 09/13/24 21:46 Temperature 97.7 F L Temperature Source Temporal Pulse Rate 92 Respiratory Rate 24 H Blood Pressure 158/88 H Blood Pressure Mean 111 Pulse Ox 97 Oxygen Delivery Method Nasal Cannula Oxygen Flow Rate (L/min) 4 [facility] MDM Narrative Medical decision making narrative: HISTORY OF PRESENT ILLNESS: Chief complaint: Right foot/calf pain swelling 74-year-old female history of IPF, TIA, hyperlipidemia, hypertension presents with right foot redness and leg swelling this began suddenly today. No history of blood clots. No chest pain, shortness of breath or syncope noted. REVIEW OF SYSTEMS: Pertinent positives: Leg pain, swelling Pertinent negatives: Chest pain, shortness of breath and syncope PHYSICAL EXAM: Nursing triage notes reviewed, Vital signs reviewed Constitutional: please see mdm Extremities: No edema, good capillary refill, confluent erythema noted over dorsum of the right foot, no crepitus or bullae noted. Compartments are soft. No ankle or knee swelling. Intact pulses in bilateral lower extremities. Neuro: Intact sensation L1-S1 dermatomal distributions. Intact 5/5 strength in hip flexion (T12-L3). Knee extension (L2-L4). Ankle dorsiflexion (L4-L5). Ankle plantar flexion (S1). Great toe extension (L5). 2+ patellar and Achilles DTRs. Skin: No rash or lesions noted MEDICAL DECISION MAKING: Chief Complaint: please see [facility] External records reviewed: Reviewed prior imaging studies Factors affecting care: As per [facility] Social determinants of health: Former smoker History obtained from others: none Consults: none [facility] Narrative: The patient was initially hemodynamically stable, afebrile and nontoxic-appearing. Exam with neurovascular intact right lower extremity. There is confluent erythema noted to the dorsum of the right foot. I considered the following differential diagnosis: DVT, arterial occlusion, compartment syndrome, necrotizing fasciitis, septic arthritis, cellulitis ALL IMAGES (IF OBTAINED) HAVE BEEN PERSONALLY REVIEWED AND INTERPRETED BY MYSELF. DVT ultrasound negative for acute DVT I suspect the patient is suffering from cellulitis. No sign of necrotizing fasciitis or compartment syndrome. Will give prophylactic antibiotics to cover MRSA. The patient and/or family, caregivers express understanding. The patient and/or family, caregivers agrees with the plan. Shared decision making: I will have a discussion with the patient and or visitors regarding risk/benefits of further testing or admission. They will be made aware of of the risk/benefits inherent in this decision they will be given the opportunity to voice understanding. Total critical care time today provided was at least 0 minutes. This excludes separately billable procedures. Critical care time (if documented) is secondary to the patient having high probability of clinically significant/life threatening deterioration in the patient's condition which required my urgent intervention. Impression: 1. Cellulitis 2. Right leg swelling Dispo: Discharge home This note was generated with [employer] dictation software. It may contain incorrect words, spelling, and punctuation that were not noted in review of the chart prior to signing. Radiography Diagnostic Testing: Clinical Impression(s) from Imaging Studies Venous Duplex 09/13/24 21:58 IMPRESSION: No deep venous thrombosis identified in the extremity. Reading Location: [facility] Discharge Plan Triage Chief Complaint: Edema ED Provider: Troy Power Dx/Rx/DC Orders Instructions: Cellulitis Prescriptions: New sulfamethoxazole-trimethoprim [Bactrim DS] 800-160 mg tablet 1 tab PO BID 7 Days Qty: 14 0RF No Action escitalopram oxalate 10 mg tablet 10 mg PO QHS 30 Days Qty: 30 Patient Comments: TABLET ONE-HALF TABLET BY MOUTH EVERY DAY FOR SIX DAYS THEN TAKE ONE TABLET EVERY DAY pramipexole 0.125 mg tablet 1 mg PO QHS dexamethasone 6 mg tablet 6 mg PO DAILY Qty: 5 0RF levothyroxine 25 mcg tablet 25 mcg PO DAILY Ofev 150 mg capsule 150 mg PO BID amlodipine 5 mg tablet 5 mg PO DAILY Ofev 100 mg capsule 100 mg PO Q12H ondansetron HCl 8 mg tablet 8 mg PO BID Patient Comments: TAKE 1 TABLET BY MOUTH 2YTIMES A DAYAI Primary Care Provider: Ernesto Hensley Chi Referrals: Ernesto Hensley Chi, MD [Primary Care Provider] - Activity Restrictions/Additional Instructions: Thank you for trusting us with your care today! Your presentation is most consistent with likely superficial skin infection called cellulitis. This treated antibiotics. Please take antibiotics till course completed. The ultrasound of your left lower extremity did NOT reveal evidence of a blood clot. Please take Tylenol (2 pills, 650 mg), ibuprofen (2 pills, 400 mg) every 6 hours as needed for pain and fever control. Please return to the emergency department if your symptoms change or worsen. Please follow with your primary care physician for further outpatient evaluation and management. Print Language: [place] Disposition Disposition: Home, Self Care
[2024-09-13] MEDS: Smz/Tmp Ds Tablet 1 TABLET PO (23:01)
[2024-09-13 23:03] VITALS: BP 168/78; PULSE 77; RESP 24; TEMP 36.5; O2SAT 100
== END 2024-09-13 23:24 | disposition home or self-care (01) ==
PROVIDERS: Emergency Provider Emergency Medicine; PCP Family Medicine Geriatric Medicine; Visit Provider Emergency Medicine
DX: L03.115 Cellulitis of right lower limb (principal); M79.89 Other specified soft tissue disorders; Z87.891 Personal history of nicotine dependence
CPT/HCPCS: 93971; 99282

== ENCOUNTER → 2024-10-03 | Outpatient (CLI) | payer MEDICARE, SELFPAY ==
--- NOTE | 2024-10-03 12:52 | VDLE_ITS ---
Reason For Study Reason For Study: Pain RLE RIGHT LEFT GSV is normal. CFV is compressible, spontaneous, phasic, competent, CFV is compressible, spontaneous, phasic, competent and demonstrates normal augmentation. and demonstrates normal augmentation. FV is compressible, spontaneous, phasic, competent and demonstrates normal augmentation. POP V is compressible, spontaneous, phasic, competent and demonstrates normal augmentation. T/P Trunk is compressible. PTV is compressible. RT PerV is compressible. Procedure This is a venous duplex using B-mode, color flow and spectral Doppler. Exam performed in department. A preliminary report was called and/or faxed to Dr. Aggarwal. VL/Venous Duplex US, Unilateral Interpretation Summary Deep veins of the right lower extremity are patent and compressible segmentally . There is no evidence of right lower extremity deep vein thrombosis. Valvular competence appears intact within the p roximal deep venous system on the right . The right great saphenous vein appears patent and compressible segmentally. The left common femoral vein is patent and compressible . Ordering Physician: Tobi Aggarwal V Referring Physician: Ernesto Hensley Chi Performed By: Hannah Miranda, KAM, RVT
== END | disposition home or self-care (01) ==
PROVIDERS: PCP Family Medicine Geriatric Medicine; Referring Provider Internal Medicine Pulmonary Disease; Visit Provider Internal Medicine Pulmonary Disease
DX: M79.661 Pain in right lower leg (principal); L03.115 Cellulitis of right lower limb
CPT/HCPCS: 93971

== ENCOUNTER → 2024-11-28 | Outpatient (CLI) | payer MEDICARE, SELFPAY ==
[2024-11-28 16:41] LABS: Pro- Brain NATRIURETIC PEPTIDE 54 pg/mL (<=1800)
== END | disposition home or self-care (01) ==
LOC: LAB 14:19
PROVIDERS: PCP Family Medicine Geriatric Medicine; Referring Provider Internal Medicine Pulmonary Disease; Visit Provider Internal Medicine Pulmonary Disease
DX: I27.0 Primary pulmonary hypertension (principal)
CPT/HCPCS: 36415; 83880

== ENCOUNTER → 2024-12-08 | Outpatient (CLI) | payer MEDICARE, SELFPAY ==
[2024-12-08 15:29] LABS: Hematocrit 34.4 % (37-47); Hemoglobin 10.6 g/dL (12.0-15.0); Immature Granulocytes Count 0.040 X10^3/uL (0.0-0.0); Mean Corp Hgb Conc 30.8 g/dL (32-36); Mean Corpuscular Volume 90.1 fL (81-99); Mean Platelet Vol. 10.1 fl (6.2-12.0); NRBC Flagged by Analyzer 0 % (0-5); Platelet Count 223 K/mm3 (150-450); RBC Distribution Width CV 14.8 % (11.6-14.6); RBC Distribution Width SD 49.0 fl (35.1-43.9); Red Blood Count 3.82 M/mm3 (4.2-5.4); White Blood Count 7.4 K/mm3 (4.4-11.0)
[2024-12-08 16:26] LABS: AST(SGOT) 21 U/L (<=31); Alanine Aminotransfer ALT/SGPT 13 U/L (<=34); Albumin, Serum 4.0 g/dL (3.4-4.8); Alkaline Phosphatase 95 U/L (35-104); Anion Gap 11 (5-15); BUN 10 mg/dL (4-19); BUN/Creat Ratio 12.7 RATIO (10-20); Calcium,Total 9.4 mg/dL (7.6-11.0); Carbon Dioxide 28.1 mmol/L (21.0-32.0); Chloride 103 mmol/L (98-108); Cholesterol 187 mg/dL (<=200); Globulin 2.8 g/dL (2.2-4.2); Glucose 103 mg/dL (70-99); Low Density Lipoprotein Calc. 117 mg/dL; Potassium 4.1 mmol/L (3.3-5.1); Triglycerides 170 mg/dL; Very Low Density Lipoprotein 34 mg/dL (5-40); Vitamin D,25 Hydroxy 23.3 ng/mL (30-100); cholesterol:hdl ratio screen 5.18
[2024-12-08 23:16] LABS: Xtra Tube Kwok EXTRA TUBE
== END | disposition home or self-care (01) ==
LOC: POLAB3 15:15
PROVIDERS: PCP Family Medicine Geriatric Medicine; Visit Provider Family Medicine Geriatric Medicine
DX: E78.5 Hyperlipidemia, unspecified (principal); E03.9 Hypothyroidism, unspecified; I10 Essential (primary) hypertension; E55.9 Vitamin D deficiency, unspecified
CPT/HCPCS: 36415; 80053; 80061; 82306; 84443; 85025

== ENCOUNTER → 2024-12-12 | Outpatient (CLI) | payer MEDICARE, SELFPAY ==
--- NOTE | 2024-12-12 13:55 | ECHOD_ITS ---
Reason For Study Reason For Study: Pulmonary HTN Procedure This was a 2D Doppler, Color Flow transthoracic echocardiogram. RV Strain performed. Exam performed in department. Left Ventricle Normal LV size. Mild concentric left ventricular hypertrophy. The left ventricular ejection fraction is 50 %. Stage 1 diastolic dysfunction. Right Ventricle Normal RV size. Normal systolic function. Atria Normal left atrium. Normal right atrium. Mitral Valve Normal mitral valve. Tricuspid Valve Normal tricuspid valve. Mild to moderate (1-2+) tricuspid valve insufficiency. Pulmonary artery systolic pressure is 50 mmHg. Aortic Valve Trisinus/trileaflet aortic valve. Pulmonic Valve Normal pulmonic valve. Great Vessels Normal aortic root. The pulmonary artery is normal size. Inferior vena cava collapse with sniff. Pericardium/Pleural No pericardial effusion. MMode/2D Measurements & Calculations LVIDd: 4.9 cm IVSd: 1.3 cm Ao root diam: 2.8 cm LVIDs: 3.1 cm LVPWd: 1.2 cm RVDd: 3.3 cm FS: 36.0 % LAV(MOD-sp2): 44.0 ml LVAd ap4: 21.9 cm2 SV(MOD-sp4): 35.6 ml LVLd ap4: 6.1 cm SI(MOD-sp4): 19.7 ml/m2 EDV(MOD-sp4): 67.2 ml EDV(sp4-el): 67.1 ml LVAs ap4: 13.4 cm2 LVLs ap4: 4.7 cm ESV(MOD-sp4): 31.6 ml ESV(sp4-el): 32.5 ml EF(MOD-sp4): 52.9 % EF(sp4-el): 51.6 % SV(sp4-el): 34.7 ml LA dimension(2D): 4.5 cm TAPSE: 1.7 cm Time Measurements MV dec time: 0.26 sec Doppler Measurements & Calculations MV E max dexter: 68.5 cm/sec Lat Peak E' Dexter: 6.1 cm/sec Med Peak E' Dexter: 6.7 cm/sec MV A max dexter: 106.2 cm/sec E/E' lat: 11.2 E/E' med: 10.3 MV E/A: 0.65 MV V2 max: 115.6 cm/sec MV P1/2t max dexter: 75.1 cm/sec Ao V2 max: 182.3 cm/sec MV max P.4 mmHg MV P1/2t: 84.3 msec Ao max P.3 mmHg MV V2 mean: 56.2 cm/sec MV dec slope: 260.8 cm/sec2 Ao V2 mean: 120.9 cm/sec MV mean P.5 mmHg Ao mean P.6 mmHg MV V2 VTI: 28.8 cm MVA(P1/2t): 2.6 cm2 Ao V2 VTI: 41.9 cm AV (velocity ratio): 0.56 LV V1 max: 108.4 cm/sec TR max dexter: 339.2 cm/sec LV V1 max P.7 mmHg TR max P.0 mmHg LV V1 mean P.6 mmHg LV V1 mean: 76.1 cm/sec LV V1 VTI: 23.3 cm ECHO/Echo Complete Interpretation Summary Normal LV size. Mild concentric left ventricular hypertrophy. The left ventricular ejection fraction is 50 %. Stage 1 diastolic dysfunction. Mild to moderate (1-2+) tricuspid valve insufficiency. Pulmonary artery systolic pressure is 50 mmHg. Ordering Physician: Tobi Aggarwal V Referring Physician: Ernesto Hensley Chi Performed By: Yao Higgins RCS
== END | disposition home or self-care (01) ==
LOC: CVS 13:55
PROVIDERS: PCP Family Medicine Geriatric Medicine; Referring Provider Internal Medicine Pulmonary Disease; Visit Provider Internal Medicine Pulmonary Disease
DX: I27.0 Primary pulmonary hypertension (principal)
CPT/HCPCS: 93306

== ENCOUNTER → 2024-12-28 | Outpatient (CLI) | payer MEDICARE, SELFPAY | END | disposition home or self-care (01) | LOC: POLAB3 13:47 | PROVIDERS: PCP Family Medicine Geriatric Medicine; Visit Provider Family Medicine Geriatric Medicine | DX: R06.02 Shortness of breath (principal) | CPT/HCPCS: 87631 ==